=== PATIENT | female | born 1940 | race Hispanic/Latino ===

== ENCOUNTER → 2017-10-26 | Outpatient (CLI) | payer MEDICARE ==
[~2017-10-26] MED LIST: APIX2.5T PO; ASPI-1005 PO; ATOR40TA71 PO; CHOL100040 PO; CHOL50004 PO; DILT120C12 PO; ESOM40CA54 PO; FURO40TA7 PO; LISI-617 PO; LORA10TA7 PO; MECL12.585 PO; MOME13HF2 IH; PRED5TAB PO; QUET25TA74 PO; SENN-141 PO; SERT50TA12 PO; UBID100C10 PO
== END | disposition home or self-care (01) ==
LOC: SHCH 09:33
PROVIDERS: ATTEND Internal Medicine Cardiovascular Disease
DX: I13.0 Hypertensive heart and chronic kidney disease with heart failure and stage 1 through stage 4 chronic kidney disease, or unspecified chronic kidney disease (principal); I50.32 Chronic diastolic (congestive) heart failure; N18.3 Chronic kidney disease, stage 3 (moderate); I48.0 Paroxysmal atrial fibrillation; I48.92 Unspecified atrial flutter; I27.20 Pulmonary hypertension, unspecified; I07.1 Rheumatic tricuspid insufficiency; I70.0 Atherosclerosis of aorta; F41.9 Anxiety disorder, unspecified
CPT/HCPCS: 93306

== ENCOUNTER 2017-11-07 08:38 | Day surgery (SDC) | payer MEDICARE ==
[~2017-11-07] VITALS: Ht 154.9 cm; Wt 53.5 kg
[~2017-11-07 08:38] MED LIST changes: -CHOL50004 PO; -DILT120C12 PO; -MOME13HF2 IH
[2017-11-07] MEDS ORDERED: SODIUM CHLORIDE 0.9% 1000ML 1,000 ML IV ONE (08:54)
[2017-11-07 10:03] VITALS: BP 158/71
[2017-11-07] MEDS ORDERED: CHOL50004 PO (10:15)
[2017-11-07] MEDS ORDERED: MOME13HF2 IH (10:15)
[2017-11-07] MEDS ORDERED: DILT120C12 PO (10:15)
[2017-11-07 11:17] VITALS: BP 113/39
[2017-11-07] MEDS ORDERED: PROPOFOL 10 MG/ML 20ML VIAL IV ONE (11:17)
[2017-11-07 11:38] VITALS: BP 152/56
== END 2017-11-07 11:56 | disposition home or self-care (01) ==
LOC: DAH 08:38 → ENDO 08:38
PROVIDERS: ATTEND Internal Medicine Gastroenterology
DX: K29.50 Unspecified chronic gastritis without bleeding (principal); D64.9 Anemia, unspecified; I10 Essential (primary) hypertension; M81.0 Age-related osteoporosis without current pathological fracture; M19.90 Unspecified osteoarthritis, unspecified site; Z98.51 Tubal ligation status; Z98.890 Other specified postprocedural states; Z90.49 Acquired absence of other specified parts of digestive tract; Z95.1 Presence of aortocoronary bypass graft; Z79.899 Other long term (current) drug therapy; Z86.73 Personal history of transient ischemic attack (TIA), and cerebral infarction without residual deficits; I25.10 Atherosclerotic heart disease of native coronary artery without angina pectoris; K21.9 Gastro-esophageal reflux disease without esophagitis
CPT/HCPCS: 43239; 88305; 88312; 93005; A4606; J2704; J7030

== ENCOUNTER 2018-03-10 21:18 | Inpatient (IN) | payer MEDICARE ==
[~2018-03-10] VITALS: Ht 152.4 cm; Wt 53.5 kg
[~2018-03-10 21:18] MED LIST changes: -ASPI-1005 PO; +CHOL50004 PO; +DILT120C12 PO; -LORA10TA7 PO; -MECL12.585 PO; +MOME13HF2 IH; -PRED5TAB PO; -SENN-141 PO
[2018-03-10] MEDS ORDERED: SODIUM CHLORIDE 0.9% 1000ML 1,000 ML IV ONE (21:50)
[2018-03-10] MEDS ORDERED: ONDANSETRON HCL 4 MG/2 ML VIAL ONE (21:50)
[2018-03-10 21:52] LABS: BASOPHILS % (AUTO) 0.2 % (0.0-5.0); EOSINOPHILS % (AUTO) 2.5 % (0.0-8.0); HEMATOCRIT 35.2 % (36-48); LYMPHOCYTES % (AUTO) 23.7 % (21.0-51.0); MEAN CORPUSCULAR HEMOGLOBIN 28.7 pg (27.0-33.0); MEAN CORPUSCULAR HGB CONC 34.4 g/dL (32.0-36.0); MEAN CORPUSCULAR VOLUME 83.3 fL (79-99); MONOCYTES % (AUTO) 11.4 % (3.0-13.0); NEUTROPHILS % (AUTO) 62.2 % (40.0-77.0); PLATELET COUNT (AUTO) 190 K/uL (130-400); RED BLOOD CELL COUNT(AUTO) 4.23 MIL/uL (4.00-5.50); RED CELL DISTRIBUTION WIDTH 19.2 % (11.0-15.5); WHITE BLOOD COUNT (AUTO) 7.4 K/uL (4.8-10.8)
[2018-03-10 22:01] LABS: CREATININE 1.3 mg/dL (0.5-1.5); POTASSIUM 3.8 mmol/L (3.5-5.1)
[2018-03-10 22:06] LABS: ALBUMIN 3.6 g/dL (3.5-5.0); BILIRUBIN,TOTAL 0.7 mg/dL (0.2-1.0); TOTAL PROTEIN, SERUM 7.9 g/dL (6.0-8.3)
[2018-03-10 23:54] LABS: APPEARANCE,URINE Clear (CLEAR); BILIRUBIN,URINE Negative (NEGATIVE); COLOR,URINE Yellow (YELLOW); GLUCOSE, URINE (UA) Negative (NEGATIVE); KETONES,URINE Negative (NEGATIVE); LEUKOCYTE ESTERASE ,URINE Negative (NEGATIVE); NITRATE,URINE Negative (NEGATIVE); OCCULT BLOOD,URINE Trace (NEGATIVE); PH,URINE 5.5 (5.0-8.0); PROTEIN,URINE Negative (NEGATIVE); UROBILINOGEN,URINE 0.2 mg/dL (0.2-1.0)
[2018-03-11 00:02] LABS: BACTERIA,URINE Few /HPF (None Seen); RBC,URINE 0-1 /HPF (0-1); WBC,URINE 0-1 /HPF (0-1)
[2018-03-11 00:05] LABS: AMPHET/METH SCREEN,URINE NEGATIVE (NEGATIVE); BARBITURATE SCREEN, URINE NEGATIVE (NEGATIVE); BENZODIAZEPINES SCREEN,URINE NEGATIVE (NEGATIVE); CANNABINOID SCREEN,URINE NEGATIVE (NEGATIVE); COCAINE SCREEN,URINE NEGATIVE (NEGATIVE); OPIATE SCREEN,URINE NEGATIVE (NEGATIVE); PHENCYCLIDINE SCREEN,URINE NEGATIVE (NEGATIVE)
[2018-03-11] MEDS ORDERED: POTASSIUM CHLORIDE 10% ELIXIR 20 MEQ/15 ML UDCUP PO PRN (03:00)
[2018-03-11] MEDS ORDERED: ONDANSETRON HCL 4 MG/2 ML VIAL IVP PRN (03:00)
[2018-03-11] MEDS: SODIUM CHLORIDE 0.9% 1000ML 1,000 ML IV SCH ×5 (03:00→20:12)
[2018-03-11] MEDS ORDERED: LIDOCAINE HCL-MPF 1% 2ML VIAL IJ PRN (03:00)
[2018-03-11] MEDS ORDERED: POTASSIUM CHLORIDE 20 MEQ ERTAB PO PRN (03:00)
[2018-03-11] MEDS ORDERED: ACETAMINOPHEN 325 MG TAB PO PRN ×2 (03:00)
[2018-03-11] MEDS ORDERED: CLONIDINE HCL 0.1 MG TABLET PO PRN (03:00)
[2018-03-11] MEDS ORDERED: POTASSIUM CHLORIDE 20MEQ/100ML 100 ML IV PRN (03:00)
[2018-03-11 07:59] VITALS: BP 148/68
[2018-03-11] MEDS ORDERED: PNEUMOCOCCAL VACCINE POLYVALENT 0.5 ML/VIAL [PPV] IM SCH ×2 (08:30→08:45)
[2018-03-11] MEDS ORDERED: RANI150T7 PO (08:51)
[2018-03-11] MEDS ORDERED: FERR325T22 PO (08:51)
[2018-03-11] MEDS ORDERED: LINA145C PO (08:51)
[2018-03-11] MEDS ORDERED: LEVO500T2 PO (08:52)
[2018-03-11 09:02] LABS: BASOPHILS % (AUTO) 0.4 % (0.0-5.0); LYMPHOCYTES % (AUTO) 26.4 % (21.0-51.0); MEAN CORPUSCULAR HEMOGLOBIN 27.7 pg (27.0-33.0); MEAN CORPUSCULAR HGB CONC 33.2 g/dL (32.0-36.0); MEAN CORPUSCULAR VOLUME 83.6 fL (79-99); MONOCYTES % (AUTO) 11.6 % (3.0-13.0); NEUTROPHILS % (AUTO) 57.6 % (40.0-77.0); PLATELET COUNT (AUTO) 165 K/uL (130-400); RED BLOOD CELL COUNT(AUTO) 4.55 MIL/uL (4.00-5.50); WHITE BLOOD COUNT (AUTO) 6.9 K/uL (4.8-10.8)
[2018-03-11] MEDS ORDERED: DOCUSATE SODIUM 100 MG CAP PO PRN (09:15)
[2018-03-11] MEDS ORDERED: LACTULOSE 20 GM/30 ML UDCUP PO PRN (09:15)
[2018-03-11 09:56] LABS: ALBUMIN 3.5 g/dL (3.5-5.0); BILIRUBIN,TOTAL 0.8 mg/dL (0.2-1.0); CREATININE 1.2 mg/dL (0.5-1.5); POTASSIUM 4.1 mmol/L (3.5-5.1)
[2018-03-11] MEDS: UBIDECARENONE 200 MG PO SCH (10:45)
[2018-03-11] MEDS: ***HM***(Cholecalciferol (Vitamin D3) 5,000 UNIT) PO SCH (10:45)
[2018-03-11] MEDS: ***HM***(Linaclotide (Linzess) 145 MCG) PO SCH (10:45)
[2018-03-11] MEDS ORDERED: QUETIAPINE FUMARATE 25 MG TAB PO SCH (10:45)
[2018-03-11] MEDS ORDERED: ALBUTEROL SULFATE 0.083% 2.5 MG/3 ML INH IH SCH (12:00)
[2018-03-11 12:27] VITALS: BP 127/57
[2018-03-11] MEDS: RANITIDINE HCL 15 MG/1 ML PO SCH (16:32)
[2018-03-11] MEDS: LISINOPRIL 5 MG TABLET PO SCH (16:32)
[2018-03-11] MEDS: SERTRALINE HCL 50 MG TABLET PO SCH (16:41)
[2018-03-11 16:43] VITALS: BP 127/55
[2018-03-11 20:05] VITALS: BP 156/69
[2018-03-11] MEDS ORDERED: FLUTICASONE PROPIONATE HFA 220 MCG/PUFF 12 GM INHR IH SCH (21:00)
[2018-03-11] MEDS: ATORVASTATIN CALCIUM 40 MG TABLET PO SCH (21:01)
[2018-03-11] MEDS: APIXABAN 2.5 MG TABLET PO SCH (21:02)
[2018-03-11] MEDS: QUETIAPINE FUMARATE 25 MG TAB PO SCH (21:02)
[2018-03-11 23:58] VITALS: BP 127/57
[2018-03-12] MEDS: SODIUM CHLORIDE 0.9% 1000ML 1,000 ML IV SCH ×3 (04:16→19:59)
[2018-03-12 04:51] VITALS: BP 121/51
[2018-03-12 04:56] LABS: HEMATOCRIT 31.3 % (36-48); MEAN CORPUSCULAR HEMOGLOBIN 28.7 pg (27.0-33.0); MEAN CORPUSCULAR HGB CONC 34.2 g/dL (32.0-36.0); MEAN CORPUSCULAR VOLUME 83.9 fL (79-99); PLATELET COUNT (AUTO) 154 K/uL (130-400); RED BLOOD CELL COUNT(AUTO) 3.73 MIL/uL (4.00-5.50); RED CELL DISTRIBUTION WIDTH 19.2 % (11.0-15.5); WHITE BLOOD COUNT (AUTO) 7.3 K/uL (4.8-10.8)
[2018-03-12] MEDS: RANITIDINE HCL 15 MG/1 ML PO SCH ×2 (06:31→16:47)
[2018-03-12 08:05] VITALS: BP 121/58
[2018-03-12] MEDS: LISINOPRIL 5 MG TABLET PO SCH (08:51)
[2018-03-12] MEDS: APIXABAN 2.5 MG TABLET PO SCH ×2 (08:51→19:59)
[2018-03-12] MEDS: SERTRALINE HCL 50 MG TABLET PO SCH (08:51)
[2018-03-12] MEDS: MOMETASONE PO SCH (08:53)
[2018-03-12] MEDS: UBIDECARENONE 200 MG PO SCH (08:53)
[2018-03-12] MEDS: ***HM***(Linaclotide (Linzess) 145 MCG) PO SCH (08:53)
[2018-03-12] MEDS: DILTIAZEM HCL 120 MG CAP.SR.24H PO SCH (08:53)
[2018-03-12] MEDS: ***HM***(Cholecalciferol (Vitamin D3) 5,000 UNIT) PO SCH (08:53)
[2018-03-12] MEDS: FORMOTEROL PO SCH (08:53)
[2018-03-12] MEDS ORDERED: NON-FORMULARY MEDICATION 1 EACH (Diltiazem HCl (Diltiazem ER) 120 MG) PO SCH (09:00)
[2018-03-12] MEDS ORDERED: LISINOPRIL 5 MG TABLET PO SCH (09:00)
[2018-03-12] MEDS ORDERED: QUETIAPINE FUMARATE 25 MG TAB PO SCH (09:00)
[2018-03-12] MEDS ORDERED: NON-FORMULARY MEDICATION 1 EACH (Linaclotide (Linzess) 145 MCG) PO SCH (09:00)
[2018-03-12] MEDS ORDERED: SERTRALINE HCL 50 MG TABLET PO SCH (09:00)
[2018-03-12] MEDS ORDERED: CHOLECALCIFEROL 5000 UNIT PO SCH (09:00)
[2018-03-12] MEDS ORDERED: UBIDECARENONE 200 MG PO SCH (09:00)
[2018-03-12 11:22] VITALS: BP 139/72
[2018-03-12 17:01] VITALS: BP 137/64
[2018-03-12] MEDS: QUETIAPINE FUMARATE 25 MG TAB PO SCH (19:59)
[2018-03-12] MEDS: ATORVASTATIN CALCIUM 40 MG TABLET PO SCH (19:59)
[2018-03-12 20:16] VITALS: BP 158/65
[2018-03-12 23:41] VITALS: BP 125/57
[2018-03-13] MEDS: SODIUM CHLORIDE 0.9% 1000ML 1,000 ML IV SCH (01:57)
[2018-03-13 03:56] VITALS: BP 138/51
[2018-03-13 04:59] LABS: CREATININE 0.9 mg/dL (0.5-1.5)
[2018-03-13] MEDS: RANITIDINE HCL 15 MG/1 ML PO SCH (05:56)
[2018-03-13 08:32] VITALS: BP 155/54
[2018-03-13] MEDS: MOMETASONE PO SCH (09:00)
[2018-03-13] MEDS: FORMOTEROL PO SCH (09:00)
[2018-03-13] MEDS: ***HM***(Linaclotide (Linzess) 145 MCG) PO SCH (09:00)
[2018-03-13] MEDS: ***HM***(Cholecalciferol (Vitamin D3) 5,000 UNIT) PO SCH (09:00)
[2018-03-13] MEDS: UBIDECARENONE 200 MG PO SCH (09:00)
[2018-03-13] MEDS: LISINOPRIL 5 MG TABLET PO SCH (09:53)
[2018-03-13] MEDS: SERTRALINE HCL 50 MG TABLET PO SCH (09:53)
[2018-03-13] MEDS: DILTIAZEM HCL 120 MG CAP.SR.24H PO SCH (09:54)
[2018-03-13] MEDS: APIXABAN 2.5 MG TABLET PO SCH (09:54)
[2018-03-13 11:23] VITALS: BP 147/59
== END 2018-03-13 13:21 | disposition home or self-care (01) | DRG 389 ==
LOC: EDH 21:18 → EDHIP 03-11 00:20 → OBSVTOIN 03-11 00:20 → 4AH 03-11 07:36
PROVIDERS: ADMIT Family Medicine; ATTEND Family Medicine
PROC: 3E0234Z Introduction of Serum, Toxoid and Vaccine into Muscle, Percutaneous Approach (ICD-10-PCS; principal; 2018-03-11)
DX: K56.41 Fecal impaction (principal); E87.1 Hypo-osmolality and hyponatremia; I25.10 Atherosclerotic heart disease of native coronary artery without angina pectoris; I10 Essential (primary) hypertension; E78.5 Hyperlipidemia, unspecified; Z95.1 Presence of aortocoronary bypass graft; Z23 Encounter for immunization
CPT/HCPCS: 36415; 74176; 80048; 80053; 80305; 81001; 82150; 83690; 85025; 85027; 90732; 97039; J2405; J7030; Q2038

== ENCOUNTER → 2018-10-22 | Outpatient (CLI) | payer MEDICARE ==
[~2018-10-22] MED LIST changes: -APIX2.5T PO; +APIX5TAB PO; +ATOR40TA69 PO; -ATOR40TA71 PO; -CHOL100040 PO; -DILT120C12 PO; +DRON400T2 PO; -ESOM40CA54 PO; +FURO40TA5 PO; -FURO40TA7 PO; -MOME13HF2 IH; -QUET25TA74 PO; +RANI150T7 PO; -UBID100C10 PO; +ZOLP10TA6 PO
== END | disposition home or self-care (01) ==
LOC: SHCH 11:42
PROVIDERS: ATTEND Internal Medicine Cardiovascular Disease
DX: I11.0 Hypertensive heart disease with heart failure (principal); I50.32 Chronic diastolic (congestive) heart failure; I25.10 Atherosclerotic heart disease of native coronary artery without angina pectoris; E78.5 Hyperlipidemia, unspecified
CPT/HCPCS: 93306

== ENCOUNTER → 2019-05-23 | Outpatient (CLI) | payer MEDICARE ==
[~2019-05-23] MED LIST changes: +CARV12.511 PO; -CHOL50004 PO; +DILT-36 PO; -DRON400T2 PO; +LORA10TA7 PO; +PANT40TA25 PO; -RANI150T7 PO; -ZOLP10TA6 PO; +ZOLP5TAB8 PO
== END | disposition home or self-care (01) ==
LOC: OIH 13:15
PROVIDERS: ATTEND Family Medicine
DX: S63.122A Subluxation of interphalangeal joint of left thumb, initial encounter (principal); M19.042 Primary osteoarthritis, left hand; X58.XXXA Exposure to other specified factors, initial encounter; Y93.89 Activity, other specified; Y92.89 Other specified places as the place of occurrence of the external cause; Y99.8 Other external cause status
CPT/HCPCS: 73140

== ENCOUNTER → 2020-10-01 | Outpatient (CLI) | payer MEDICARE ==
[~2020-10-01] MED LIST changes: -LISI-617 PO; +LISI-809 PO; -PANT40TA25 PO; +PANT40TA54 PO; +SERT-439 PO; -SERT50TA12 PO
== END | disposition home or self-care (01) ==
LOC: SHCH 13:05
PROVIDERS: ATTEND Internal Medicine Cardiovascular Disease
DX: I50.32 Chronic diastolic (congestive) heart failure (principal)
CPT/HCPCS: 93306; 93356

== ENCOUNTER 2021-08-07 16:08 | Emergency (ER) | payer MEDICARE ==
[~2021-08-07] VITALS: Ht 152.4 cm; Wt 54.4 kg
[~2021-08-07 16:08] MED LIST changes: -LISI-809 PO; +LISI5TAB21 PO
[2021-08-07 16:09] VITALS: BP 147/75
[2021-08-07 16:29] LABS: BASOPHILS % (AUTO) 0.3 % (0.0-5.0); HEMATOCRIT 38.1 % (36-48); LYMPHOCYTES % (AUTO) 24.5 % (21.0-51.0); MEAN CORPUSCULAR HEMOGLOBIN 26.9 pg (27.0-33.0); MEAN CORPUSCULAR VOLUME 83.9 fL (79-99); MONOCYTES % (AUTO) 11.6 % (3.0-13.0); NEUTROPHILS % (AUTO) 60.1 % (40.0-77.0); PLATELET COUNT (AUTO) 168 K/uL (130-400); RED BLOOD CELL COUNT(AUTO) 4.54 MIL/uL (4.00-5.50); RED CELL DISTRIBUTION WIDTH 15.9 % (11.0-15.5)
[2021-08-07 16:42] LABS: INR 1.18 (0.85-1.15); PROTHROMBIN TIME 12.7 SEC (9.6-11.6)
[2021-08-07 16:43] LABS: PARTIAL THROMBOPLASTIN TIME 33.5 SEC (26.3-35.5)
[2021-08-07 16:45] LABS: ALBUMIN 3.8 g/dL (3.5-5.0); BILIRUBIN,TOTAL 1.3 mg/dL (0.2-1.0); POTASSIUM 4.4 mmol/L (3.5-5.1); TOTAL PROTEIN, SERUM 8.5 g/dL (6.0-8.3)
[2021-08-07] MEDS ORDERED: 0.9%NACL 1000ML 1,000 ML IV ONE (16:51)
[2021-08-07] MEDS ORDERED: 0.9%NACL 1000ML 1,000 ML IV SCH (17:00)
== END 2021-08-07 17:49 | disposition home or self-care (01) ==
LOC: EDH 16:08
DX: R04.0 Epistaxis (principal); E87.1 Hypo-osmolality and hyponatremia; E86.1 Hypovolemia; E78.00 Pure hypercholesterolemia, unspecified; I10 Essential (primary) hypertension; I25.10 Atherosclerotic heart disease of native coronary artery without angina pectoris; Z79.01 Long term (current) use of anticoagulants; Z79.899 Other long term (current) drug therapy; Z88.6 Allergy status to analgesic agent; Z90.49 Acquired absence of other specified parts of digestive tract; Z95.1 Presence of aortocoronary bypass graft
CPT/HCPCS: 36415; 80053; 85025; 85610; 85730; 96360; 99283; J7030

== ENCOUNTER → 2021-12-15 | Outpatient (CLI) | payer MEDICARE ==
[2021-12-15 13:07] LABS: CREATININE 0.9 mg/dL (0.5-1.5)
== END | disposition home or self-care (01) ==
LOC: LAB 11:54
PROVIDERS: ATTEND Family Medicine
DX: M25.512 Pain in left shoulder (principal)
CPT/HCPCS: 36415; 82565; 84520

== ENCOUNTER → 2021-12-16 | Outpatient (CLI) | payer MEDICARE ==
[~2021-12-16] MED LIST changes: +IOHEXOL 350 MG/ML 100ML INFUS..BTL IV ONE
== END | disposition home or self-care (01) ==
LOC: RAH 11:00
PROVIDERS: ATTEND Family Medicine
DX: M25.512 Pain in left shoulder (principal)
CPT/HCPCS: 73202; Q9967

== ENCOUNTER 2022-01-24 18:12 | Observation (INO) | payer MEDICARE ==
[~2022-01-24] VITALS: Ht 154.9 cm; Wt 54.4 kg
[~2022-01-24 18:12] MED LIST changes: -IOHEXOL 350 MG/ML 100ML INFUS..BTL IV ONE
[2022-01-24 19:14] LABS: BASOPHILS % (AUTO) 0.2 % (0.0-5.0); EOSINOPHILS % (AUTO) 0.8 % (0.0-8.0); HEMATOCRIT 37.6 % (36-48); MEAN CORPUSCULAR HGB CONC 33.8 g/dL (32.0-36.0); MEAN CORPUSCULAR VOLUME 82.8 fL (79-99); MONOCYTES % (AUTO) 9.7 % (3.0-13.0); NEUTROPHILS % (AUTO) 73.8 % (40.0-77.0); PLATELET COUNT (AUTO) 150 K/uL (130-400); RED BLOOD CELL COUNT(AUTO) 4.54 MIL/uL (4.00-5.50); RED CELL DISTRIBUTION WIDTH 15.2 % (11.0-15.5); WHITE BLOOD COUNT (AUTO) 6.6 K/uL (4.8-10.8)
[2022-01-24 19:27] LABS: ALBUMIN 3.6 g/dL (3.5-5.0); POTASSIUM 3.9 mmol/L (3.5-5.1); TOTAL PROTEIN, SERUM 7.9 g/dL (6.0-8.3)
[2022-01-24 20:17] LABS: APPEARANCE,URINE CLEAR (CLEAR); BILIRUBIN,URINE NEGATIVE (NEGATIVE); COLOR,URINE COLORLESS (YELLOW); GLUCOSE, URINE (UA) NEGATIVE (NEGATIVE); KETONES,URINE NEGATIVE (NEGATIVE); LEUKOCYTE ESTERASE ,URINE NEGATIVE Leu/uL (NEGATIVE); NITRATE,URINE NEGATIVE (NEGATIVE); OCCULT BLOOD,URINE SMALL (NEGATIVE); PROTEIN,URINE NEGATIVE (NEGATIVE); UROBILINOGEN,URINE 0.2 mg/dL (0.2-1.0)
[2022-01-24 20:23] LABS: MUCUS,URINE RARE LPF (None Seen); WBC,URINE 0-1 /HPF (0-1)
[2022-01-24] MEDS ORDERED: SOLU-MEDROL 40MG VIAL IVP ONE (20:30)
[2022-01-24] MEDS ORDERED: MECLIZINE HCL 25 MG TABLET PO ONE (20:30)
[2022-01-24] MEDS ORDERED: ONDANSETRON 4MG INJ IVP ONE (20:30)
[2022-01-24] MEDS ORDERED: 0.9% NACL 500ML IV.SOLN 500 ML IV ONE (20:30)
[2022-01-24] MEDS ORDERED: LACTULOSE 20 GM/30 ML UDCUP PO PRN (22:30)
[2022-01-24] MEDS ORDERED: 0.9%NACL 1000ML 1,000 ML IV SCH (22:30)
[2022-01-24] MEDS ORDERED: ACETAMINOPHEN 325 MG TAB PO PRN ×2 (22:30)
[2022-01-24] MEDS ORDERED: ONDANSETRON 4MG INJ IV PRN (22:30)
[2022-01-24] MEDS ORDERED: SUCR1TAB2 PO (23:32)
[2022-01-24] MEDS ORDERED: DILT-36 PO (23:32)
[2022-01-24] MEDS ORDERED: ZOLP5TAB8 PO (23:32)
[2022-01-24] MEDS ORDERED: MECL-160 PO (23:32)
[2022-01-24] MEDS ORDERED: ATOR40TA69 PO (23:32)
[2022-01-24] MEDS ORDERED: LISI5TAB21 PO (23:32)
[2022-01-24] MEDS ORDERED: PANT40TA54 PO (23:32)
[2022-01-24] MEDS ORDERED: SERT-439 PO (23:32)
[2022-01-24] MEDS ORDERED: APIX2.5T PO (23:32)
[2022-01-25] MEDS ORDERED: MECLIZINE HCL 25 MG TABLET PO PRN
[2022-01-25 05:10] VITALS: BP 161/95
[2022-01-25 05:53] LABS: CREATININE 0.8 mg/dL (0.5-1.5); POTASSIUM 4.5 mmol/L (3.5-5.1)
[2022-01-25 07:00] VITALS: BP 135/81
[2022-01-25 07:38] LABS: HEMATOCRIT 41.1 % (36-48); MEAN CORPUSCULAR HEMOGLOBIN 27.8 pg (27.0-33.0); MEAN CORPUSCULAR HGB CONC 33.1 g/dL (32.0-36.0); MEAN CORPUSCULAR VOLUME 83.9 fL (79-99); RED BLOOD CELL COUNT(AUTO) 4.9 MIL/uL (4.00-5.50); RED CELL DISTRIBUTION WIDTH 15.2 % (11.0-15.5); WHITE BLOOD COUNT (AUTO) 5.1 K/uL (4.8-10.8)
[2022-01-25] MEDS ORDERED: APIXABAN 2.5 MG TABLET PO SCH (09:00)
[2022-01-25] MEDS ORDERED: DILTIAZEM 120MG SR CAP PO SCH (09:00)
[2022-01-25] MEDS ORDERED: LISINOPRIL 5 MG TABLET PO SCH (09:00)
[2022-01-25] MEDS ORDERED: PANTOPRAZOLE 40 MG TAB DR PO SCH (09:00)
[2022-01-25] MEDS ORDERED: FAMOTIDINE 20MG TAB PO SCH (09:00)
[2022-01-25] MEDS ORDERED: ONDA-104 PO (10:16)
[2022-01-25] MEDS ORDERED: MECL-160 PO (10:16)
[2022-01-25] MEDS ORDERED: DICY10CA13 PO (10:16)
[2022-01-25] MEDS ORDERED: FURO20TA6 PO (10:16)
[2022-01-25] MEDS ORDERED: FUROSEMIDE 20 MG TABLET PO SCH (10:30)
[2022-01-25 11:00] VITALS: BP 122/60
[2022-01-25] MEDS ORDERED: ATORVASTATIN 40 MG TABLET PO SCH (21:00)
== END 2022-01-25 13:15 | disposition home or self-care (01) ==
LOC: EDH 18:12 → INTOOBSV 22:29 → OBSVTOIN 22:29 → EDHIP 22:29 → 2DH 01-25 04:17
PROVIDERS: ADMIT Hospitalist; ATTEND Hospitalist
DX: E86.1 Hypovolemia (principal); E87.1 Hypo-osmolality and hyponatremia; E87.8 Other disorders of electrolyte and fluid balance, not elsewhere classified; I11.0 Hypertensive heart disease with heart failure; I50.9 Heart failure, unspecified; E78.5 Hyperlipidemia, unspecified; I25.10 Atherosclerotic heart disease of native coronary artery without angina pectoris; E78.00 Pure hypercholesterolemia, unspecified; I25.2 Old myocardial infarction; Z79.899 Other long term (current) drug therapy; Z79.01 Long term (current) use of anticoagulants; Z95.1 Presence of aortocoronary bypass graft
CPT/HCPCS: 96374; 96361 ×2; 96375; 99285; 84484; 84295 ×3; 80053; 83880 ×2; 85025; 83935; 81001; 36415 ×2; 70450; 93005; 80048; 85027; 93306; 93356; J7040; J2405; J2920; G0378 ×3

== ENCOUNTER 2022-02-11 23:07 | Emergency (ER) | payer MEDICARE ==
[~2022-02-11] VITALS: Ht 160 cm; Wt 53.5 kg
[~2022-02-11 23:07] MED LIST changes: +APIX2.5T PO; -APIX5TAB PO; -CARV12.511 PO; +DICY10CA13 PO; +FURO20TA6 PO; -FURO40TA5 PO; -LORA10TA7 PO; +MECL-160 PO; +ONDA-104 PO; +SUCR1TAB2 PO
[2022-02-12] LABS: BASOPHILS % (AUTO) 0.2 % (0.0-5.0); HEMATOCRIT 38.2 % (36-48); LYMPHOCYTES % (AUTO) 7.4 % (21.0-51.0); MEAN CORPUSCULAR HEMOGLOBIN 28.5 pg (27.0-33.0); MEAN CORPUSCULAR HGB CONC 34.3 g/dL (32.0-36.0); MEAN CORPUSCULAR VOLUME 83.2 fL (79-99); NEUTROPHILS % (AUTO) 85.8 % (40.0-77.0); PLATELET COUNT (AUTO) 164 K/uL (130-400); RED BLOOD CELL COUNT(AUTO) 4.59 MIL/uL (4.00-5.50); RED CELL DISTRIBUTION WIDTH 15.3 % (11.0-15.5); WHITE BLOOD COUNT (AUTO) 16.8 K/uL (4.8-10.8)
[2022-02-12 00:11] LABS: CARBON DIOXIDE 27 mmol/L (21-32); CHLORIDE 93 mmol/L (101-111); CREATININE 1.2 mg/dL (0.5-1.5); GLOMERULAR FILTR. RATE CALC 46 mL/min (>60); GLUCOSE,RANDOM 108 mg/dL (70-105); POTASSIUM 4.4 mmol/L (3.5-5.1); SODIUM SERUM 125 mmol/L (136-145); UREA NITROGEN, BLOOD 13 mg/dL (7-18)
[2022-02-12 00:15] LABS: ALANINE AMINOTRANSFERASE 47 U/L (12-78); ALBUMIN 3.3 g/dL (3.5-5.0); ASPARTATE AMINOTRANSFERASE 55 U/L (10-37); TOTAL PROTEIN, SERUM 7.4 g/dL (6.0-8.3)
[2022-02-12 00:18] LABS: LIPASE < 50 U/L (114-286)
[2022-02-12] MEDS ORDERED: IOHEXOL 350 MG/ML 100ML INFUS..BTL IV ONE (00:33)
[2022-02-12 01:45] VITALS: BP 117/61
[2022-02-12] MEDS ORDERED: 0.9%NACL 1000ML 2,000 ML IV ONE (02:00)
[2022-02-12] MEDS ORDERED: DICY10 PO (02:33)
[2022-02-12] MEDS ORDERED: MORPHINE 2 MG SYG IM ONE (03:00)
== END 2022-02-12 03:14 | disposition home or self-care (01) ==
LOC: EDH 23:07
DX: E87.1 Hypo-osmolality and hyponatremia (principal); K59.00 Constipation, unspecified; E78.00 Pure hypercholesterolemia, unspecified; E86.1 Hypovolemia; I10 Essential (primary) hypertension; I25.10 Atherosclerotic heart disease of native coronary artery without angina pectoris; Z88.6 Allergy status to analgesic agent; Z79.899 Other long term (current) drug therapy; Z90.49 Acquired absence of other specified parts of digestive tract; Z79.01 Long term (current) use of anticoagulants; Z95.1 Presence of aortocoronary bypass graft
CPT/HCPCS: 99285; 84484; 80053; 83690; 85025; 36415; 71045; 74177; 96372; 96360; J7030; Q9967; 93005

== ENCOUNTER 2022-06-27 17:33 | Emergency (ER) | payer MEDICARE ==
[~2022-06-27] VITALS: Ht 152.4 cm; Wt 51.7 kg
[~2022-06-27 17:33] MED LIST changes: +DICY10 PO
[2022-06-27] MEDS ORDERED: IOHEXOL-350 50ML VIAL IV ONE (18:54)
[2022-06-27 19:50] LABS: BASOPHILS % (AUTO) 0.2 % (0.0-5.0); EOSINOPHILS % (AUTO) 1.7 % (0.0-8.0); HEMATOCRIT 43.5 % (36-48); LYMPHOCYTES % (AUTO) 17.7 % (21.0-51.0); MEAN CORPUSCULAR HEMOGLOBIN 29.5 pg (27.0-33.0); MEAN CORPUSCULAR HGB CONC 32.2 g/dL (32.0-36.0); MEAN CORPUSCULAR VOLUME 91.8 fL (79-99); NEUTROPHILS % (AUTO) 72.2 % (40.0-77.0); PLATELET COUNT (AUTO) 138 K/uL (130-400); RED BLOOD CELL COUNT(AUTO) 4.74 MIL/uL (4.00-5.50); RED CELL DISTRIBUTION WIDTH 14.5 % (11.0-15.5); WHITE BLOOD COUNT (AUTO) 8.6 K/uL (4.8-10.8)
[2022-06-27 19:58] LABS: CREATININE 0.8 mg/dL (0.5-1.5); POTASSIUM 4.1 mmol/L (3.5-5.1)
[2022-06-27] MEDS ORDERED: DIPH,PERTUSS(ACELL),TET VAC/PF 0.5 ML VIAL IM ONE (20:00)
[2022-06-27 20:03] LABS: ALBUMIN 3.8 g/dL (3.5-5.0); TOTAL PROTEIN, SERUM 8.9 g/dL (6.0-8.3)
[2022-06-27] MEDS ORDERED: TETANUS/DIPHTHERIA TOXOID [ADULT] 0.5 ML VIAL IM ONE (20:31)
[2022-06-27] MEDS ORDERED: ACETAMINOPHEN 500 MG TABLET ONE (20:32)
[2022-06-27] MEDS ORDERED: ACETAMINOPHEN 325 MG TAB PO ONE (21:00)
[2022-06-27 23:36] VITALS: BP 158/71
== END 2022-06-27 23:55 | disposition home or self-care (01) ==
LOC: EDH 17:33
DX: S20.219A Contusion of unspecified front wall of thorax, initial encounter (principal); S80.12XA Contusion of left lower leg, initial encounter; I10 Essential (primary) hypertension; E78.00 Pure hypercholesterolemia, unspecified; Z90.49 Acquired absence of other specified parts of digestive tract; Z98.890 Other specified postprocedural states; Z79.899 Other long term (current) drug therapy; Z88.6 Allergy status to analgesic agent; W01.0XXA Fall on same level from slipping, tripping and stumbling without subsequent striking against object, initial encounter; Y93.89 Activity, other specified; Y92.89 Other specified places as the place of occurrence of the external cause; Y99.8 Other external cause status
CPT/HCPCS: 99285; 70450 ×2; 80053; 85025; 36415; 90715; 73070; 72125; 71260; 74177; 90471; 93005; 90714; Q9967

== ENCOUNTER 2022-07-20 17:40 | Emergency (ER) | payer MEDICARE ==
[~2022-07-20] VITALS: Ht 154.9 cm; Wt 54.4 kg
[2022-07-20 18:27] LABS: BASOPHILS % (AUTO) 0.1 % (0.0-5.0); EOSINOPHILS % (AUTO) 0.1 % (0.0-8.0); HEMATOCRIT 39.7 % (36-48); LYMPHOCYTES % (AUTO) 3.7 % (21.0-51.0); MEAN CORPUSCULAR HEMOGLOBIN 29.6 pg (27.0-33.0); MEAN CORPUSCULAR VOLUME 89.8 fL (79-99); NEUTROPHILS % (AUTO) 90.7 % (40.0-77.0); PLATELET COUNT (AUTO) 171 K/uL (130-400); RED BLOOD CELL COUNT(AUTO) 4.42 MIL/uL (4.00-5.50); RED CELL DISTRIBUTION WIDTH 14.4 % (11.0-15.5); WHITE BLOOD COUNT (AUTO) 15.1 K/uL (4.8-10.8)
[2022-07-20 18:39] LABS: CREATININE 0.8 mg/dL (0.5-1.5); POTASSIUM 4.1 mmol/L (3.5-5.1)
[2022-07-20 18:46] LABS: ALBUMIN 3.4 g/dL (3.5-5.0); TOTAL PROTEIN, SERUM 7.3 g/dL (6.0-8.3)
[2022-07-20] MEDS ORDERED: IOHEXOL 350 MG/ML 100ML INFUS..BTL IV ONE (18:48)
[2022-07-20 19:14] LABS: APPEARANCE,URINE CLEAR (CLEAR); BILIRUBIN,URINE NEGATIVE (NEGATIVE); COLOR,URINE YELLOW (YELLOW); GLUCOSE, URINE (UA) NEGATIVE (NEGATIVE); KETONES,URINE NEGATIVE (NEGATIVE); LEUKOCYTE ESTERASE ,URINE NEGATIVE Leu/uL (NEGATIVE); NITRATE,URINE NEGATIVE (NEGATIVE); OCCULT BLOOD,URINE SMALL (NEGATIVE); PH,URINE 6.5 (5.0-8.0); PROTEIN,URINE NEGATIVE (NEGATIVE)
[2022-07-20 19:15] LABS: MUCUS,URINE RARE LPF (None Seen); SQUAMOUS EPITHELIAL CELL,UR RARE /HPF (0-2); WBC,URINE 0-1 /HPF (0-1)
[2022-07-20] MEDS ORDERED: MORPHINE 2 MG SYG IVP ONE (21:00)
[2022-07-20] MEDS ORDERED: ONDA4TAB10 PO (21:26)
[2022-07-20 21:39] VITALS: BP 148/52
== END 2022-07-20 21:40 | disposition home or self-care (01) ==
LOC: EDH 17:40
DX: K52.9 Noninfective gastroenteritis and colitis, unspecified (principal); I10 Essential (primary) hypertension; Z79.01 Long term (current) use of anticoagulants; Z79.899 Other long term (current) drug therapy; Z88.6 Allergy status to analgesic agent; Z90.49 Acquired absence of other specified parts of digestive tract; Z95.810 Presence of automatic (implantable) cardiac defibrillator
CPT/HCPCS: 99285; 74177; 96374; 80053; 85025; 83605; 81001; 36415; Q9967

== ENCOUNTER 2022-10-20 17:48 | Emergency (ER) | payer MEDICARE ==
[~2022-10-20] VITALS: Ht 152.4 cm; Wt 49.9 kg
[~2022-10-20 17:48] MED LIST changes: +ONDA4TAB10 PO
[2022-10-20 18:33] LABS: BASOPHILS % (AUTO) 0.3 % (0.0-5.0); EOSINOPHILS % (AUTO) 0.3 % (0.0-8.0); HEMATOCRIT 37.2 % (36-48); LYMPHOCYTES % (AUTO) 12.6 % (21.0-51.0); MEAN CORPUSCULAR HGB CONC 32.8 g/dL (32.0-36.0); MEAN CORPUSCULAR VOLUME 88.4 fL (79-99); NEUTROPHILS % (AUTO) 80.4 % (40.0-77.0); PLATELET COUNT (AUTO) 153 K/uL (130-400); RED BLOOD CELL COUNT(AUTO) 4.21 MIL/uL (4.00-5.50); RED CELL DISTRIBUTION WIDTH 14.3 % (11.0-15.5); WHITE BLOOD COUNT (AUTO) 7.9 K/uL (4.8-10.8)
[2022-10-20 18:48] LABS: CARBON DIOXIDE 22 mmol/L (21-32); CHLORIDE 92 mmol/L (101-111); CREATININE 0.7 mg/dL (0.5-1.5); GLOMERULAR FILTR. RATE CALC 86 mL/min (>90); GLUCOSE,RANDOM 118 mg/dL (70-105); SODIUM SERUM 125 mmol/L (136-145); UREA NITROGEN, BLOOD 13 mg/dL (7-18)
[2022-10-20 18:56] LABS: ALANINE AMINOTRANSFERASE 64 U/L (12-78); ALBUMIN 3.7 g/dL (3.5-5.0); ASPARTATE AMINOTRANSFERASE 78 U/L (10-37); TOTAL PROTEIN, SERUM 8.1 g/dL (6.0-8.3)
[2022-10-20 18:57] LABS: LIPASE < 50 U/L (114-286)
[2022-10-20 19:40] LABS: APPEARANCE,URINE CLEAR (CLEAR); BILIRUBIN,URINE NEGATIVE (NEGATIVE); COLOR,URINE YELLOW (YELLOW); GLUCOSE, URINE (UA) NEGATIVE (NEGATIVE); KETONES,URINE NEGATIVE (NEGATIVE); LEUKOCYTE ESTERASE ,URINE NEGATIVE Leu/uL (NEGATIVE); NITRATE,URINE NEGATIVE (NEGATIVE); OCCULT BLOOD,URINE SMALL (NEGATIVE); PH,URINE 5.5 (5.0-8.0); PROTEIN,URINE NEGATIVE (NEGATIVE); UROBILINOGEN,URINE 0.2 mg/dL (0.2-1.0)
[2022-10-20 19:44] LABS: BACTERIA,URINE RARE /HPF (None Seen); MUCUS,URINE RARE LPF (None Seen); SQUAMOUS EPITHELIAL CELL,UR RARE /HPF (0-2); WBC,URINE 0-1 /HPF (0-1)
[2022-10-20 19:46] VITALS: BP 139/59
[2022-10-20] MEDS ORDERED: LACT10SO95 PO (20:17)
== END 2022-10-20 20:45 | disposition home or self-care (01) ==
LOC: EDH 17:48
DX: K59.00 Constipation, unspecified (principal); I10 Essential (primary) hypertension; Z90.49 Acquired absence of other specified parts of digestive tract
CPT/HCPCS: 36415; 74018; 80053; 81001; 83690; 84484; 85025; 93005

== ENCOUNTER → 2022-12-10 | Outpatient (CLI) | payer MEDICARE ==
[~2022-12-10] MED LIST changes: +DICY-20 PO; -DICY10CA13 PO; +LACT10SO95 PO
== END | disposition home or self-care (01) ==
LOC: SHCH 13:57
PROVIDERS: ATTEND Internal Medicine Cardiovascular Disease
DX: I08.8 Other rheumatic multiple valve diseases (principal); I27.20 Pulmonary hypertension, unspecified
CPT/HCPCS: 93306

== ENCOUNTER → 2022-12-13 | Outpatient (CLI) | payer MEDICARE | END | disposition home or self-care (01) | LOC: SHCH 15:16 | PROVIDERS: ATTEND Internal Medicine Cardiovascular Disease | DX: I65.23 Occlusion and stenosis of bilateral carotid arteries (principal) | CPT/HCPCS: 93880 ==

== ENCOUNTER 2022-12-30 10:54 | Emergency (ER) | payer MEDICARE ==
[~2022-12-30] VITALS: Ht 147.3 cm; Wt 49.9 kg
[2022-12-30 11:21] VITALS: BP 110/55; PULSE 82; RESP 16; O2SAT 96
[2022-12-30 12:25] LABS: APPEARANCE,URINE CLEAR (CLEAR); BILIRUBIN,URINE NEGATIVE (NEGATIVE); COLOR,URINE YELLOW (YELLOW); GLUCOSE, URINE (UA) NEGATIVE (NEGATIVE); KETONES,URINE NEGATIVE (NEGATIVE); LEUKOCYTE ESTERASE ,URINE NEGATIVE Leu/uL (NEGATIVE); NITRATE,URINE NEGATIVE (NEGATIVE); OCCULT BLOOD,URINE SMALL (NEGATIVE); PH,URINE 6.5 (5.0-8.0); PROTEIN,URINE NEGATIVE (NEGATIVE); UROBILINOGEN,URINE 0.2 mg/dL (0.2-1.0)
[2022-12-30 12:26] LABS: BASOPHILS # (AUTO) 0.02 K/uL (0.00-0.20); BASOPHILS % (AUTO) 0.2 % (0.0-5.0); EOSINOPHILS # (AUTO) 0.05 K/uL (0.00-0.70); EOSINOPHILS % (AUTO) 0.5 % (0.0-8.0); HEMATOCRIT 39.5 % (36-48); IMMATURE GRANULOCYTE ABSOLUTE 0.03 K/uL (0-1); LYMPHOCYTES # (AUTO) 3.4 K/uL (1.0-4.8); LYMPHOCYTES % (AUTO) 35.6 % (21.0-51.0); MEAN CORPUSCULAR HEMOGLOBIN 29.4 pg (27.0-33.0); MEAN CORPUSCULAR HGB CONC 33.7 g/dL (32.0-36.0); MEAN CORPUSCULAR VOLUME 87.2 fL (79-99); MONOCYTES % (AUTO) 10.5 % (3.0-13.0); NEUTROPHILS % (AUTO) 52.9 % (40.0-77.0); PLATELET COUNT (AUTO) 165 K/uL (130-400); RED BLOOD CELL COUNT(AUTO) 4.53 MIL/uL (4.00-5.50); RED CELL DISTRIBUTION WIDTH 14.9 % (11.0-15.5); WHITE BLOOD COUNT (AUTO) 9.5 K/uL (4.8-10.8)
[2022-12-30 12:42] LABS: ADD UA MICROSCOPIC YES
[2022-12-30 12:45] LABS: WBC,URINE 0-1 /HPF (0-1)
[2022-12-30 12:46] LABS: BACTERIA,URINE None Seen /HPF (None Seen)
[2022-12-30 12:50] LABS: CREATININE 0.8 mg/dL (0.5-1.5); POTASSIUM 3.6 mmol/L (3.5-5.1)
[2022-12-30 12:55] LABS: ALBUMIN 3.8 g/dL (3.5-5.0); TOTAL PROTEIN, SERUM 8.2 g/dL (6.0-8.3)
[2022-12-30] MEDS ORDERED: HYDR28.32 TP (13:17)
== END 2022-12-30 13:41 | disposition home or self-care (01) ==
LOC: EDH 10:54
DX: L29.9 Pruritus, unspecified (principal)
CPT/HCPCS: 36415; 80053; 81001; 85025

== ENCOUNTER 2023-10-08 11:03 | Emergency (ER) | payer MEDICARE ==
[~2023-10-08] VITALS: Ht 152.4 cm; Wt 49.9 kg
[~2023-10-08 11:03] MED LIST changes: -DICY-20 PO; +DICY10CA2 PO; +HYDR28.32 TP; -MECL-160 PO; +MECL-302 PO; +ONDA-243 PO; -ONDA4TAB10 PO
[2023-10-08 11:11] VITALS: BP 122/83; PULSE 90; RESP 16
[2023-10-08 11:51] LABS: BASOPHILS # (AUTO) 0.02 K/uL (0.00-0.20); BASOPHILS % (AUTO) 0.4 % (0.0-5.0); EOSINOPHILS # (AUTO) 0.13 K/uL (0.00-0.70); EOSINOPHILS % (AUTO) 2.3 % (0.0-8.0); HEMATOCRIT 39.5 % (36-48); IMMATURE GRANULOCYTE ABSOLUTE 0.02 K/uL (0-1); LYMPHOCYTES # (AUTO) 1.2 K/uL (1.0-4.8); LYMPHOCYTES % (AUTO) 21.4 % (21.0-51.0); MEAN CORPUSCULAR HEMOGLOBIN 30.4 pg (27.0-33.0); MEAN CORPUSCULAR HGB CONC 33.2 g/dL (32.0-36.0); MEAN CORPUSCULAR VOLUME 91.6 fL (79-99); MONOCYTES # (AUTO) 0.5 K/uL (0.1-1.0); MONOCYTES % (AUTO) 9.3 % (3.0-13.0); NEUTROPHILS # (AUTO) 3.7 K/uL (1.8-7.7); NEUTROPHILS % (AUTO) 66.2 % (40.0-77.0); PLATELET COUNT (AUTO) 112 K/uL (130-400); RED BLOOD CELL COUNT(AUTO) 4.31 MIL/uL (4.00-5.50); RED CELL DISTRIBUTION WIDTH 15.5 % (11.0-15.5); WHITE BLOOD COUNT (AUTO) 5.6 K/uL (4.8-10.8)
[2023-10-08 12:01] LABS: CREATININE 0.8 mg/dL (0.5-1.0); INR 1.09 (0.85-1.15); POTASSIUM 3.9 mmol/L (3.5-5.1); PROTHROMBIN TIME 12.8 SEC (9.6-11.6)
[2023-10-08 12:03] LABS: PARTIAL THROMBOPLASTIN TIME 31.1 SEC (26.3-35.5)
[2023-10-08 12:06] LABS: ALBUMIN 3.6 g/dL (3.5-5.0); BILIRUBIN,TOTAL 1.4 mg/dL (0.2-1.0); TOTAL PROTEIN, SERUM 7.9 g/dL (6.0-8.3)
[2023-10-08] MEDS: FENTANYL CITRATE PF 50 MCG/1 ML 2ML VIAL IVP ONE (12:14)
[2023-10-08] MEDS ORDERED: HYDR-4060 PO (14:01)
[2023-10-08] MEDS ORDERED: FURO40TA5 PO (15:50)
[2023-10-08] MEDS: TETANUS/DIPHTHERIA TOXOID [ADULT] 0.5 ML VIAL IM ONE (16:07)
== END 2023-10-08 16:15 | disposition admitted as inpatient to this hospital (09) ==
LOC: EDH 11:03
DX: S01.81XA Laceration without foreign body of other part of head, initial encounter (principal); E78.00 Pure hypercholesterolemia, unspecified; Z79.01 Long term (current) use of anticoagulants; Z95.0 Presence of cardiac pacemaker; W18.39XA Other fall on same level, initial encounter; Y93.89 Activity, other specified; Y92.89 Other specified places as the place of occurrence of the external cause; Y99.8 Other external cause status
CPT/HCPCS: 99285; 70450; 96374; 71045; 84484; 80053; 85025; 85610; 85730; 36415; 90714; 72125; 90471; 93005; J3010

== ENCOUNTER → 2023-11-17 | Outpatient (CLI) | payer MEDICARE ==
[~2023-11-17] MED LIST changes: +FURO40TA5 PO; +HYDR-4060 PO
== END | disposition home or self-care (01) ==
LOC: SHCH 11:11
PROVIDERS: ATTEND Internal Medicine Cardiovascular Disease
DX: I08.8 Other rheumatic multiple valve diseases (principal)
CPT/HCPCS: 93306

== ENCOUNTER → 2023-11-22 | Outpatient (CLI) | payer MEDICARE | END | disposition home or self-care (01) | LOC: SHCH 09:03 | PROVIDERS: ATTEND Internal Medicine Cardiovascular Disease | DX: I87.2 Venous insufficiency (chronic) (peripheral) (principal); I87.1 Compression of vein | CPT/HCPCS: 93970 ==

== ENCOUNTER 2024-01-02 10:18 | Emergency (ER) | payer MEDICARE ==
[~2024-01-02] VITALS: Ht 152.4 cm; Wt 47.6 kg
[2024-01-02 11:48] LABS: BASOPHILS # (AUTO) 0.02 K/uL (0.00-0.20); BASOPHILS % (AUTO) 0.3 % (0.0-5.0); EOSINOPHILS # (AUTO) 0.04 K/uL (0.00-0.70); EOSINOPHILS % (AUTO) 0.6 % (0.0-8.0); HEMATOCRIT 37.8 % (36-48); IMMATURE GRANULOCYTE ABSOLUTE 0.03 K/uL (0-1); LYMPHOCYTES # (AUTO) 1.6 K/uL (1.0-4.8); LYMPHOCYTES % (AUTO) 23.9 % (21.0-51.0); MEAN CORPUSCULAR HEMOGLOBIN 30.6 pg (27.0-33.0); MEAN CORPUSCULAR HGB CONC 34.4 g/dL (32.0-36.0); MEAN CORPUSCULAR VOLUME 88.9 fL (79-99); MONOCYTES # (AUTO) 0.6 K/uL (0.1-1.0); MONOCYTES % (AUTO) 8.8 % (3.0-13.0); NEUTROPHILS # (AUTO) 4.3 K/uL (1.8-7.7); NEUTROPHILS % (AUTO) 65.9 % (40.0-77.0); PLATELET COUNT (AUTO) 146 K/uL (130-400); RED BLOOD CELL COUNT(AUTO) 4.25 MIL/uL (4.00-5.50); RED CELL DISTRIBUTION WIDTH 15.4 % (11.0-15.5); WHITE BLOOD COUNT (AUTO) 6.6 K/uL (4.8-10.8)
[2024-01-02 12:04] VITALS: PULSE 72; RESP 18
[2024-01-02] MEDS: ALBUTEROL 0.083% 2.5 MG/3 ML INH IH ONE (12:04)
[2024-01-02 12:23] LABS: CREATININE 0.7 mg/dL (0.5-1.0); POTASSIUM 3.7 mmol/L (3.5-5.1)
[2024-01-02 12:26] LABS: ALBUMIN 3.5 g/dL (3.5-5.0); BILIRUBIN,TOTAL 1.2 mg/dL (0.2-1.0); MAGNESIUM 1.6 mg/dL (1.80-2.40); TOTAL PROTEIN, SERUM 7.6 g/dL (6.0-8.3)
[2024-01-02 12:53] LABS: B-TYPE NATRIURETIC PEPTIDE 566 pg/mL (0-100)
[2024-01-02] MEDS: FUROSEMIDE 40MG VIAL IV ONE (13:51)
[2024-01-02 16:21] VITALS: BP 142/74; PULSE 82; RESP 18; O2SAT 96
[2024-01-02] MEDS: Solu-medROL 125MG VIAL IVP ONE (16:31)
[2024-01-02] MEDS ORDERED: BUDE90AE IH (17:24)
[2024-01-02] MEDS ORDERED: BENZ-39 PO (17:24)
[2024-01-02] MEDS ORDERED: ALBUHFA IH (17:24)
== END 2024-01-02 18:05 | disposition home or self-care (01) ==
LOC: EDH 10:18
DX: R05.9 Cough, unspecified (principal); R03.0 Elevated blood-pressure reading, without diagnosis of hypertension; E87.1 Hypo-osmolality and hyponatremia; E78.00 Pure hypercholesterolemia, unspecified; E83.42 Hypomagnesemia; Z20.822 Contact with and (suspected) exposure to COVID-19; Z79.899 Other long term (current) drug therapy; Z79.01 Long term (current) use of anticoagulants; Z88.6 Allergy status to analgesic agent; Z95.1 Presence of aortocoronary bypass graft
CPT/HCPCS: 99285; 96374; 71045; 96375; 87426; 83735; 84484; 80053; 83880; 85025; 87040; 87086; 87186; 87205; 83605 ×2; 36415; 93005; 94640; 87071; J2919; J1940

== ENCOUNTER 2024-01-13 19:07 | Inpatient (IN) | payer MEDICARE ==
[~2024-01-13] VITALS: Ht 152.4 cm; Wt 45.5 kg
[~2024-01-13 19:07] MED LIST changes: +ALBUHFA IH; +BENZ-39 PO; +BUDE90AE IH
[2024-01-13 19:57] LABS: BASOPHILS # (AUTO) 0.01 K/uL (0.00-0.20); BASOPHILS % (AUTO) 0.2 % (0.0-5.0); EOSINOPHILS # (AUTO) 0.05 K/uL (0.00-0.70); EOSINOPHILS % (AUTO) 0.8 % (0.0-8.0); HEMATOCRIT 38.1 % (36-48); IMMATURE GRANULOCYTE ABSOLUTE 0.01 K/uL (0-1); LYMPHOCYTES # (AUTO) 1.6 K/uL (1.0-4.8); MEAN CORPUSCULAR HEMOGLOBIN 30.8 pg (27.0-33.0); MEAN CORPUSCULAR HGB CONC 33.6 g/dL (32.0-36.0); MEAN CORPUSCULAR VOLUME 91.8 fL (79-99); MONOCYTES # (AUTO) 0.7 K/uL (0.1-1.0); MONOCYTES % (AUTO) 10.8 % (3.0-13.0); PLATELET COUNT (AUTO) 119 K/uL (130-400); RED BLOOD CELL COUNT(AUTO) 4.15 MIL/uL (4.00-5.50); RED CELL DISTRIBUTION WIDTH 15.5 % (11.0-15.5); WHITE BLOOD COUNT (AUTO) 6.3 K/uL (4.8-10.8)
[2024-01-13 20:07] LABS: INR 1.2 (0.85-1.15); PROTHROMBIN TIME 12.8 SEC (9.6-11.6)
[2024-01-13 20:08] LABS: CREATININE 0.7 mg/dL (0.5-1.0); PARTIAL THROMBOPLASTIN TIME 33.2 SEC (26.3-35.5); POTASSIUM 3.9 mmol/L (3.5-5.1)
[2024-01-13 20:19] LABS: SARS-CoV-2, RNA, NAAT NEGATIVE SARS CoV-2 (NEGATIVE)
[2024-01-13 20:23] LABS: MAGNESIUM 1.6 mg/dL (1.80-2.40)
[2024-01-13 20:26] LABS: INFLUENZA TYPE A Negative For Type A (NEGATIVE); INFLUENZA TYPE B Negative For Type B (NEGATIVE)
[2024-01-13 20:33] LABS: B-TYPE NATRIURETIC PEPTIDE 720 pg/mL (0-100)
[2024-01-13] MEDS: Solu-medROL 125MG VIAL IVP ONE (20:57)
[2024-01-13 21:26] LABS: APPEARANCE,URINE CLEAR (CLEAR); BILIRUBIN,URINE NEGATIVE (NEGATIVE); COLOR,URINE COLORLESS (YELLOW); GLUCOSE, URINE (UA) NEGATIVE (NEGATIVE); KETONES,URINE NEGATIVE (NEGATIVE); LEUKOCYTE ESTERASE ,URINE NEGATIVE Leu/uL (NEGATIVE); NITRATE,URINE NEGATIVE (NEGATIVE); PROTEIN,URINE NEGATIVE (NEGATIVE); UROBILINOGEN,URINE 0.2 mg/dL (0.2-1.0)
[2024-01-13] MEDS ORDERED: POTASSIUM CHLORIDE 20MEQ/100ML 100 ML IV PRN (21:30)
[2024-01-13] MEDS ORDERED: DEXTROSE 50%-WATER 50 ML DISP.SYRIN IV PRN (21:30)
[2024-01-13] MEDS ORDERED: POTASSIUM CHLORIDE 10% ELIXIR 20 MEQ/15 ML UDCUP PO PRN (21:30)
[2024-01-13] MEDS ORDERED: GLUCAGON 1MG KIT 1 MG ML IM PRN (21:30)
[2024-01-13 21:36] LABS: ADD UA MICROSCOPIC YES
[2024-01-13 21:46] LABS: RBC,URINE 0-1 /HPF (0-1); WBC,URINE 0-1 /HPF (0-1)
[2024-01-13] MEDS: IpraTROPium/alBUTERol SULFATE 3 ML SOLUTION IH ONE (21:46)
[2024-01-13 21:48] VITALS: PULSE 82; RESP 18
[2024-01-13 21:51] LABS: ABG BASE EXCESS -1.1 mmol/L (-2.0-3.0); ABG HCO3 22.1 mmol/L (21.0-28.0); ABG OXYGEN SATURATION 94.3 % (94.0-98.0); ABG PCO2 33 mmHg (32-45); ABG PH 7.442 (7.350-7.450); PO2, ARTERIAL BG 67.7 mmHg (83.0-108.0); VENT MODE, BG RA,21 (ROOM AIR)
[2024-01-13 22:05] VITALS: BP 156/85; PULSE 118; RESP 18; TEMP 98
[2024-01-13] MEDS ORDERED: guaiFENesin SUGAR-FREE 100 MG/5 ML UDCUP PO PRN (23:00)
[2024-01-13] MEDS ORDERED: LORA10TA7 PO (23:03)
[2024-01-13] MEDS ORDERED: DILT120C47 PO (23:03)
[2024-01-13] MEDS ORDERED: BENZ-226 PO (23:03)
[2024-01-13] MEDS ORDERED: [UNRECOGNIZED DRUG - CODE] PO (23:03)
[2024-01-13] MEDS ORDERED: SERT-440 PO (23:03)
[2024-01-13] MEDS ORDERED: FURO40TA5 PO (23:03)
[2024-01-13] MEDS ORDERED: BUDE180H IH (23:05)
[2024-01-13] MEDS ORDERED: LEVO-70 PO (23:06)
[2024-01-13] MEDS: cefTRIAXone 1G VIAL IVPB ONE (23:18)
[2024-01-13] MEDS: ZOLPidem TARTrate 5 MG TAB PO SCH (23:18)
[2024-01-13] MEDS: IpraTROPium 0.5 MG/2.5 ML INH IH SCH (23:40)
[2024-01-13] MEDS: BUDESONIDE 0.5 MG/2 ML INH IH SCH (23:40)
[2024-01-13] MEDS: ALBUTEROL 0.083% 2.5 MG/3 ML INH IH SCH (23:40)
[2024-01-13 23:45] VITALS: PULSE 82; RESP 19; O2SAT 97
[2024-01-13 23:46] VITALS: PULSE 84; RESP 18
[2024-01-14] VITALS (14 sets, daily range): BP systolic 100–156; BP diastolic 49–85; PULSE 78–116; RESP 16–20; TEMP 97.9–98.4; O2SAT 94–99
[2024-01-14] MEDS: AZITHROMYCIN 500MG+NS 250ML 250 ML IVPB SCH (00:14)
[2024-01-14] MEDS ORDERED: IOHEXOL 350 MG/ML 100ML INFUS..BTL IV ONE (00:24)
[2024-01-14] MEDS: MAGNESIUM 2GM PREMIX 50ML 50 ML IV PRN (03:06)
[2024-01-14] MEDS ORDERED: DiphenhydrAMINE HCL 25 MG CAPSULE PO PRN (03:30)
[2024-01-14] MEDS: MAGNESIUM 2GM PREMIX 50ML 50 ML IV ONE (04:04)
[2024-01-14] MEDS: DOXYCYCLINE 100MG+NS 250ML 250 ML IV SCH (05:07)
[2024-01-14 05:10] LABS: HEMATOCRIT 37.1 % (36-48); MEAN CORPUSCULAR HEMOGLOBIN 31.1 pg (27.0-33.0); MEAN CORPUSCULAR VOLUME 91.6 fL (79-99); RED BLOOD CELL COUNT(AUTO) 4.05 MIL/uL (4.00-5.50); RED CELL DISTRIBUTION WIDTH 15.6 % (11.0-15.5); WHITE BLOOD COUNT (AUTO) 4.7 K/uL (4.8-10.8)
[2024-01-14] MEDS: INSULIN humuLIN R 100 UNIT/ML 3ML SQ SCH (05:23)
[2024-01-14 05:28] LABS: HEMOGLOBIN A1C 5.4 % (4.0-6.0)
[2024-01-14 05:41] LABS: CREATININE 0.6 mg/dL (0.5-1.0); MAGNESIUM 2.2 mg/dL (1.80-2.40); PHOSPHORUS 3.2 mg/dL (2.5-4.9); POTASSIUM 3.8 mmol/L (3.5-5.1); THYROID STIMULATING HORMONE 0.93 uIU/mL (0.36-3.74)
[2024-01-14] MEDS: SERTraline HCL 50 MG TABLET PO SCH (08:31)
[2024-01-14] MEDS: LORATAdine 10 mg 10 MG TABLET PO SCH (08:32)
[2024-01-14] MEDS: LISINOPRIL 5 MG TABLET PO SCH (08:32)
[2024-01-14] MEDS: BENZONATATE 100 MG CAPSULE PO SCH (08:32)
[2024-01-14] MEDS: APIXaban 2.5 MG TABLET PO SCH (08:32)
[2024-01-14] MEDS: dilTIAZem 120MG SR CAP PO SCH (08:33)
[2024-01-14] MEDS: furoSEMIDE 20MG VIAL IV SCH (08:34)
[2024-01-14] MEDS: cefTRIAXone 1G VIAL IVPB SCH (14:29)
[2024-01-14] MEDS: acetaMINOPHEN 325 MG TAB PO PRN (15:46)
[2024-01-14] MEDS: atorVAStatin 40 MG TABLET PO SCH (19:47)
[2024-01-14] MEDS: ZOLPidem TARTrate 5 MG TAB PO PRN (22:44)
[2024-01-15 04:00] VITALS: BP 125/65; PULSE 85; RESP 20; TEMP 98.1
[2024-01-15 05:26] LABS: BASOPHILS # (AUTO) 0.01 K/uL (0.00-0.20); BASOPHILS % (AUTO) 0.1 % (0.0-5.0); HEMATOCRIT 34.3 % (36-48); IMMATURE GRANULOCYTE ABSOLUTE 0.03 K/uL (0-1); LYMPHOCYTES # (AUTO) 1.8 K/uL (1.0-4.8); LYMPHOCYTES % (AUTO) 19.9 % (21.0-51.0); MEAN CORPUSCULAR HEMOGLOBIN 30.2 pg (27.0-33.0); MEAN CORPUSCULAR HGB CONC 33.2 g/dL (32.0-36.0); MONOCYTES # (AUTO) 0.9 K/uL (0.1-1.0); NEUTROPHILS # (AUTO) 6.2 K/uL (1.8-7.7); NEUTROPHILS % (AUTO) 69.7 % (40.0-77.0); PLATELET COUNT (AUTO) 114 K/uL (130-400); RED BLOOD CELL COUNT(AUTO) 3.77 MIL/uL (4.00-5.50); WHITE BLOOD COUNT (AUTO) 8.9 K/uL (4.8-10.8)
[2024-01-15 05:47] LABS: CREATININE 0.7 mg/dL (0.5-1.0); POTASSIUM 3.5 mmol/L (3.5-5.1)
[2024-01-15] MEDS: KCL 20 MEQ ERTAB PO PRN (05:58)
[2024-01-15 06:36] VITALS: PULSE 85; RESP 18
[2024-01-15 07:11] VITALS: PULSE 89; RESP 18; O2SAT 100
[2024-01-15 08:00] VITALS: BP 115/51; PULSE 97; RESP 18; TEMP 97.8; O2SAT 99
[2024-01-15 11:09] VITALS: PULSE 90; RESP 18
[2024-01-15 12:00] VITALS: BP 125/59; PULSE 96; RESP 18; TEMP 98
[2024-01-15] MEDS ORDERED: DOXY100C5 PO (13:13)
[2024-01-15] MEDS ORDERED: ALBU18HF7 IH (13:13)
== END 2024-01-15 14:30 | disposition home or self-care (01) | DRG 193 ==
LOC: EDH 19:07 → EDHIP 20:58 → 4CH 21:43 → 4BH 01-14 15:33
PROVIDERS: ADMIT Internal Medicine; ATTEND Internal Medicine
DX: J18.9 Pneumonia, unspecified organism (principal); J96.01 Acute respiratory failure with hypoxia; I13.0 Hypertensive heart and chronic kidney disease with heart failure and stage 1 through stage 4 chronic kidney disease, or unspecified chronic kidney disease; J98.11 Atelectasis; N17.9 Acute kidney failure, unspecified; M62.82 Rhabdomyolysis; J91.8 Pleural effusion in other conditions classified elsewhere; R64 Cachexia; Z20.822 Contact with and (suspected) exposure to COVID-19; I50.9 Heart failure, unspecified; R73.9 Hyperglycemia, unspecified; N18.9 Chronic kidney disease, unspecified; D69.6 Thrombocytopenia, unspecified; E78.00 Pure hypercholesterolemia, unspecified; E83.42 Hypomagnesemia; E87.8 Other disorders of electrolyte and fluid balance, not elsewhere classified; I25.10 Atherosclerotic heart disease of native coronary artery without angina pectoris; R54 Age-related physical debility; R74.8 Abnormal levels of other serum enzymes; G47.00 Insomnia, unspecified; F41.9 Anxiety disorder, unspecified; Z91.148 Patient's other noncompliance with medication regimen for other reason; Z95.0 Presence of cardiac pacemaker; Z95.1 Presence of aortocoronary bypass graft
CPT/HCPCS: 36415; 36600; 71045; 71270; 80048; 81001; 82550; 82803; 82948; 83036; 83735; 83880; 84100; 84443; 84484; 85025; 85027; 85378; 85610; 85730; 87420; 87635; 87804; 93005; 93970; 94640; 94664; 96374; G0378; J0456; J0696; J1940; J2919; J3475; J3490; Q9967

== ENCOUNTER → 2024-07-08 | Outpatient (CLI) | payer MEDICARE ==
[~2024-07-08] MED LIST changes: +ALBU18HF7 IH; -ALBUHFA IH; +BENZ-226 PO; -BENZ-39 PO; +BUDE180H IH; -BUDE90AE IH; -DICY10 PO; -DICY10CA2 PO; -DILT-36 PO; +DILT120C47 PO; +DOXY100C5 PO; -FURO20TA6 PO; -HYDR-4060 PO; -HYDR28.32 TP; -LACT10SO95 PO; +LORA10TA7 PO; -MECL-302 PO; -ONDA-104 PO; -ONDA-243 PO; -PANT40TA54 PO; -SERT-439 PO; +SERT-440 PO; -SUCR1TAB2 PO; +[UNRECOGNIZED DRUG - CODE] PO
--- NOTE | 2024-07-08 17:01 | HMCIMG ---
CHEST 2VWS HISTORY: Chronic pulmonary edema COMPARISON: 01/15/2024 FINDINGS: Frontal and lateral projections of the chest were obtained. There are mild bilateral pulmonary infiltrates and pleural effusions. The heart is enlarged. Poststernotomy changes are seen. Pacemaker is seen entering from the left. No evidence of aortic calcification is seen. Degenerative changes are seen of the thoracolumbar spine. IMPRESSION: 1. Mild bilateral pulmonary infiltrates with small bilateral pleural effusions.
== END | disposition home or self-care (01) ==
LOC: RAH 15:21
PROVIDERS: ATTEND Family Medicine
DX: J90 Pleural effusion, not elsewhere classified (principal); J81.1 Chronic pulmonary edema; R91.8 Other nonspecific abnormal finding of lung field; M47.815 Spondylosis without myelopathy or radiculopathy, thoracolumbar region; I51.7 Cardiomegaly
CPT/HCPCS: 71046

== ENCOUNTER 2024-08-23 04:32 | Inpatient (IN) | payer MEDICARE ==
[~2024-08-23] VITALS: Ht 152.4 cm; Wt 47.5 kg
--- NOTE | 2024-08-23 04:45 | ERN ---
General Chief Complaint: Mechanical Fall Stated Complaint: FALL Time Seen by MD: 04:38 Source: patient History of Present Illness Initial Comments On the ground with the right side of her head. She was using her left hand to help break her fall and that to is hurting her. She is on blood thinners. There was no loss of consciousness. She is also starting to say that her abdo nevaeh pain is increasing since she arrived in the ED. Timing/Duration: 1 hour Allergies: Coded Allergies: NSAIDS (Non-Steroidal Anti-Inflamma (Verified Allergy, Unknown, DO NOT GIVE PER MD, 06/14/15) Home Meds Active Scripts Albuterol Sulfate (Ventolin Hfa) 90 Mcg Hfa.aer.ad, 18 GM IH Q6HPRN PRN for SHORTNESS OF BREATH/WHEEZING, #1 INHALER 2 Refills Prov:SAIMA GROSS 01/15/24 Doxycycline Hyclate (Doxycycline Hyclate) 100 Mg Capsule, 100 MG PO BID for 7 Days, #14 CAP Prov:SAIMA GROSS 01/15/24 Furosemide (Furosemide) 40 Mg Tablet, 40 MG PO DAILY, #60 TAB Prov:BERNICE KOCH MD 10/08/23 Reported Medications Budesonide (Pulmicort Inhaler) 180 Mcg Puff, 90 MCG IH BID, INH 01/13/24 Loratadine (Loratadine) 10 Mg Tablet, 10 MG PO DAILY, TAB 01/13/24 Furosemide (Furosemide) 40 Mg Tablet, 40 MG PO DAILY, TAB 01/13/24 Benzonatate (Benzonatate) 100 Mg Capsule, 100 MG PO TID, CAP 01/13/24 Diphenhydramine HCl (Banophen) 25 Mg Capsule, 25 MG PO Q6HPRN PRN for ITCHING, CAP 01/13/24 Diltiazem HCl (Cartia Xt) 120 Mg Cap.er.24h, 120 MG PO DAILY, CAPSULE.DR 01/13/24 Sertraline HCl (Sertraline HCl) 100 Mg Tablet, 100 MG PO DAILY, TAB 01/13/24 Apixaban (Eliquis) 2.5 Mg Tablet, 2.5 MG PO BID, TAB 01/24/22 Lisinopril (Lisinopril) 5 Mg Tablet, 5 MG PO DAILY, TAB 01/24/22 Zolpidem Tartrate (Zolpidem Tartrate) 5 Mg Tablet, 5 MG PO HSPRN PRN for INSOMNIA, TAB 01/24/22 Atorvastatin Calcium (LIPITOR) 40 Mg Tablet, 40 MG PO HS, TAB 01/24/22 Past Medical History Past Medical History: A-Fib, Depression, Hypertension Medical History Other: VERTIGO Past Surgical History: Pacer/AICD Family History Family History: Negative Social History Social History: Negative Female( History) History: Not Applicable Constitutional: (-) chills, (-) diaphoresis, (-) fever, (-) malaise, (-) weakness, (-) other documentation EENTM: (-) eye pain, (-) blurred vision, (-) tearing, (-) double vision, (-) ear pain, (-) ear discharge, (-) nose pain, (-) nose congestion, (-) throat pain, (-) Throat swelling, (-) mouth pain, (-) tooth pain, (-) mouth swelling, (-) other documentation Respiratory: (-) cough, (-) orthopnea, (-) short of breath, (-) stridor, (-) wheezing, (-) other documentation Cardiovascular: (-) chest pain, (-) edema, (-) palpitations, (-) syncope, (-) dyspnea on exertion, (-) other documentation Gastrointestinal/Abdominal: (-) nausea, (-) vomiting, (-) diarrhea, (-) abdominal pain, (-) abdominal distention, (-) constipation, (-) rectal bleeding, (-) dark stool/melena, (-) other documentation Musculoskeletal: (-) Neck pain, (-) back pain, (-) Flank Pain, (-) joint pain, (-) joint swelling, (-) muscle pain, (-) muscle stiffness, (-) gout, (-) other documentation Physical Exam General Appearance: (+) mild distress Orientation: (+) alert Head/Face Trauma: Yes Face Comment Patient has a hematoma on the right parietal region. There was no bleeding Eye: bilateral eye normal inspection, bilateral eye PERRL, bilateral eye EOMI Ear, Nose, Throat: (+) hearing grossly normal, (+) normal ENT inspection, (+) moist mucous membraine Neck: (+) normal inspection, (+) supple, (+) full range of motion Respiratory: (+) chest non-tender, (+) lungs clear, (+) well ventilated Heart: (+) murmur, (+) systolic murmur Vascular: (+) no edema, (+) normal peripheral pulse Gastrointestinal: (+) soft, (+) non-tender, (+) bowel sound present Results Laboratory and Microbiology Lab and Micro Result Laboratory Tests Test 08/23/24 04:50 08/23/24 05:59 White Blood Count 7.2 K/uL (4.8-10.8) Red Blood Count 3.92 MIL/uL (4.00-5.50) L Hemoglobin 11.9 g/dL (12.0-16.0) L Hematocrit 36.1 % (36-48) Mean Corpuscular Volume 92.1 fL (79-99) Mean Corpuscular Hemoglobin 30.4 pg (27.0-33.0) Mean Corpuscular Hemoglobin Concent 33.0 g/dL (32.0-36.0) Red Cell Distribution Width 15.6 % (11.0-15.5) H Platelet Count 128 K/uL (130-400) L Mean Platelet Volume 11.8 fL (7.5-10.5) H Immature Granulocyte % (Auto) 0.3 % (0-1) Neutrophils (%) (Auto) 67.3 % (40.0-77.0) Lymphocytes (%) (Auto) 20.4 % (21.0-51.0) L Monocytes (%) (Auto) 10.3 % (3.0-13.0) Eosinophils (%) (Auto) 1.4 % (0.0-8.0) Basophils (%) (Auto) 0.3 % (0.0-5.0) Neutrophils # (Auto) 4.8 K/uL (1.8-7.7) Lymphocytes # (Auto) 1.5 K/uL (1.0-4.8) Monocytes # (Auto) 0.7 K/uL (0.1-1.0) Eosinophils # (Auto) 0.10 K/uL (0.00-0.70) Basophils # (Auto) 0.02 K/uL (0.00-0.20) Absolute Immature Granulocyte (auto 0.02 K/uL (0-1) Nucleated Red Blood Cells 0.0 % (0.0-0.19) Sodium Level 139 mmol/L (136-145) Potassium Level 3.4 mmol/L (3.5-5.1) L Chloride Level 102 mmol/L (101-111) Carbon Dioxide Level 30 mmol/L (21-32) Blood Urea Nitrogen 14 mg/dL (7-18) Creatinine 0.7 mg/dL (0.5-1.0) Glomerular Filtration Rate Calc 85 mL/min (>90) Random Glucose 100 mg/dL (70-105) Total Calcium 9.2 mg/dL (8.5-10.1) Troponin I High Sensitivity 32 ng/L (4-50) Urine Color LIGHT-YELLOW (YELLOW) Urine Appearance CLOUDY (CLEAR) H Urine pH 8.0 (5.0-8.0) Urine Specific Kosse 1.006 (1.001-1.031) Urine Protein NEGATIVE mg/dL (NEGATIVE) Urine Glucose (UA) NEGATIVE mg/dL (NEGATIVE) Urine Ketones NEGATIVE mg/dL (NEGATIVE) Urine Occult Blood SMALL (NEGATIVE) H Urine Nitrate NEGATIVE (NEGATIVE) Urine Bilirubin NEGATIVE mg/dL (NEGATIVE) Urine Urobilinogen 2.0 mg/dL (0.2-1.0) H Urine Leukocyte Esterase NEGATIVE Yoshi/uL Urine RBC 6-10 /HPF (0-1) H Urine WBC 0-1 /HPF (0-1) Urine Squamous Epithelial Cells RARE /HPF (0-2) Urine Bacteria RARE /HPF (None Seen) MDM Patient with a ground level fall on blood thinners large hematoma on the right parietal scalp. I will do a CT scan of her head. She is also complaining of left thumb pain so I will get plain films of her left hand and wrist. She is complaining of increased abdominal pain so I will get a noncontrast CT of her abdomen and pelvis as well. We will get a CBC and coags. I will also give her fluid. I am not sure the reason for her fall so I will get a BMP a UA and an EKG and a troponin. CBC was normal chemistry panel was normal, CT head negative except for right parietal hematoma, CT abdomen negative except for concern about thickened bladder wall, C-spine films negative as well . Plain films of left wrist were negative. Dr. Melendez took over care at 7:00 a.m. I re-evaluated the patient. She feels very weak. Vital signs are stable. The lab workup was relatively unremarkable. Imaging is all unremarkable other than soft tissue injury. Since the patient was very weak she feels like she may fall again. She usually does use a walker it in the for observation. Consultation: Hospitalist. ED Course Orders Procedure Category Date Status Time Ct Head/Brain W/O CT 08/23/24 Resulted Contrast 04:45 Wrist 2vws Lt RAD 08/23/24 Taken 04:45 Forearm 2vws Lt RAD 08/23/24 Taken 04:45 Ct Abdomen/Pelvis W/O CT 08/23/24 Taken Contrast 04:45 Cbc With Differential LAB 08/23/24 Complete 04:45 Urinalysis Profile LAB 08/23/24 Complete 04:48 12 Lead Ekg Tracing- EKG 08/23/24 Logged Technical 04:48 Basic Metabolic Panel LAB 08/23/24 Complete 04:48 Ct Cervical Spine W/O CT 08/23/24 Resulted Contrast 04:54 Morphine 2mg Syg PHA 08/23/24 Complete (Morphine 2mg Syg) 06:00 Remove Pt Off CPOE 08/23/24 Transmitted C-Collar. (Er) 06:09 Knee 3 Vw Bilateral RAD 08/23/24 Logged 07:32 Pelvis 1-2vws RAD 08/23/24 Logged 07:32 Chest 1vw RAD 08/23/24 Logged 07:35 Troponin I High LAB 08/23/24 Complete Sensitivity 07:35 Current Medications Medications (Trade) Dose Ordered Sig/Adal Route PRN Reason Start Time Stop Time Status Last Admin Dose Admin Morphine Sulfate (morPHINE 2MG SYG) 2 mg ONCE ONCE IVP 08/23/24 06:00 08/23/24 06:01 DC 08/23/24 06:03 Vital Signs Date Time Temp Pulse Resp B/P (MAP) Pulse Ox O2 Delivery O2 Flow Rate FiO2 08/23/24 04:33 98.8 94 20 153/78 97 Room Air 0 DX & DISP Disposition: Inpatient Departure Impression: Primary Impression: Ground-level fall Additional Impressions: Generalized weakness, Anticoagulated by anticoagulation treatment, Traumatic hematoma of head, Normocytic anemia, Mild dehydration, Thrombocytopenia Condition: Stable Referrals: SAMIA JOHNSTON Jr., MD (PCP) DIONNE HAND MD Aug 23, 2024 04:45 CLAIRE MELENDEZ DO Aug 23, 2024 07:38
--- NOTE | 2024-08-23 04:55 | NUR ---
PATIENT TAKEN TO CT AT THIS TIME
[2024-08-23 04:59] LABS: BASOPHILS # (AUTO) 0.02 K/uL (0.00-0.20); BASOPHILS % (AUTO) 0.3 % (0.0-5.0); EOSINOPHILS % (AUTO) 1.4 % (0.0-8.0); HEMATOCRIT 36.1 % (36-48); IMMATURE GRANULOCYTE ABSOLUTE 0.02 K/uL (0-1); LYMPHOCYTES # (AUTO) 1.5 K/uL (1.0-4.8); LYMPHOCYTES % (AUTO) 20.4 % (21.0-51.0); MEAN CORPUSCULAR HEMOGLOBIN 30.4 pg (27.0-33.0); MEAN CORPUSCULAR VOLUME 92.1 fL (79-99); MONOCYTES # (AUTO) 0.7 K/uL (0.1-1.0); MONOCYTES % (AUTO) 10.3 % (3.0-13.0); NEUTROPHILS # (AUTO) 4.8 K/uL (1.8-7.7); NEUTROPHILS % (AUTO) 67.3 % (40.0-77.0); PLATELET COUNT (AUTO) 128 K/uL (130-400); RED BLOOD CELL COUNT(AUTO) 3.92 MIL/uL (4.00-5.50); RED CELL DISTRIBUTION WIDTH 15.6 % (11.0-15.5); WHITE BLOOD COUNT (AUTO) 7.2 K/uL (4.8-10.8)
[2024-08-23 05:07] LABS: CREATININE 0.7 mg/dL (0.5-1.0); POTASSIUM 3.4 mmol/L (3.5-5.1)
[2024-08-23] MEDS: morPHINE 2 MG SYG IVP ONE (06:03)
[2024-08-23 06:52] LABS: APPEARANCE,URINE CLOUDY (CLEAR); BILIRUBIN,URINE NEGATIVE (NEGATIVE); COLOR,URINE LIGHT-YELLOW (YELLOW); GLUCOSE, URINE (UA) NEGATIVE (NEGATIVE); KETONES,URINE NEGATIVE (NEGATIVE); LEUKOCYTE ESTERASE ,URINE NEGATIVE Leu/uL (NEGATIVE); NITRATE,URINE NEGATIVE (NEGATIVE); OCCULT BLOOD,URINE SMALL (NEGATIVE); PROTEIN,URINE NEGATIVE (NEGATIVE)
[2024-08-23 06:54] LABS: ADD UA MICROSCOPIC YES
[2024-08-23 06:56] LABS: BACTERIA,URINE RARE /HPF (None Seen); SQUAMOUS EPITHELIAL CELL,UR RARE /HPF (0-2); WBC,URINE 0-1 /HPF (0-1)
--- NOTE | 2024-08-23 07:51 | HMCIMG ---
CT HEAD/BRAIN W/O CONTRAST HISTORY: Fall COMPARISON: None TECHNIQUE: Multiple sequential axial images of the head were obtained from the base of the skull through vertex. Patient was not given contrast through intravenous route. FINDINGS: The ventricles and extraventricular CSF spaces are dilated consistent with cerebral atrophy. Nonspecific white matter changes seen. Right parietal scalp soft tissue swelling. There is no midline shift, mass effect or herniation. No acute intracranial bleed is seen. Visualized portion of the paranasal sinuses are grossly within normal limits. IMPRESSION: 1. No acute intracranial bleed is seen. 2. Atrophy with white matter changes. Right parietal scalp soft tissue swelling. CT was performed with one or more following dose reduction techniques: automated exposure control, adjustment of the mA and kv according to patient's size, or use of a iterative reconstruction technique.
--- NOTE | 2024-08-23 07:55 | HMCIMG ---
CT CERVICAL SPINE W/O CONTRAST HISTORY: Pain COMPARISON: None TECHNIQUE: Multiple sequential axial images of the cervical spine were obtained including post processing sagittal and coronal reconstruction images. Patient was not given contrast through intravenous route. FINDINGS: The study is limited due to poor positioning. There is anterior subluxation of C4 over C5. Disc space narrowing are seen at C5-6 and C6-7 levels. There are degenerative changes with cervical spine spondylosis. There is straightening of normal lordotic cervical curvature which may be related to muscle spasm or positioning. There is no loss of vertebral height. Evaluation for disc and cord pathology is limited with CT study. No evidence of fracture or dislocation is seen. IMPRESSION: 1. No fracture is seen. DJD with cervical spine spondylosis. CT was performed with one or more following dose reduction techniques: automated exposure control, adjustment of the mA and kv according to patient's size, or use of a iterative reconstruction technique.
--- NOTE | 2024-08-23 08:37 | HMCIMG ---
CT ABDOMEN/PELVIS W/O CONTRAST HISTORY: Status post fall COMPARISON: None TECHNIQUE: Multiple sequential axial images of the abdomen and pelvis were obtained from the dome of the diaphragm through symphysis pubis. Patient was not given contrast through intravenous route. Oral contrast was not given. FINDINGS: Small bilateral pleural effusions are seen. Mild interstitial fibrotic changes are seen. Coronary arterial calcifications are seen sternotomy changes are seen. Degenerative changes of the thoracolumbar spine are present. The heart is not enlarged. Liver measured 13 cm. Cirrhotic changes of the liver are noted. Postcholecystectomy changes are seen. There are motion artifacts degrading the image quality. There is diverticulosis. The liver, spleen, adrenal glands and pancreas are unremarkable. There is no evidence of hydronephrosis bilaterally. No evidence of renal stone is seen. Fecal material is seen in the colon. There are normal size retroperitoneal and mesenteric lymph nodes. No ascites is seen. Atherosclerotic changes are present. uterus is enlarged suggestive of fibroid uterus. No CT evidence of acute appendicitis is seen. Pelvic sidewalls are symmetric bilaterally. Bladder is well distended without wall thickening. IMPRESSION: 1. Small bilateral pleural effusions are seen with interstitial fibrosis. Cirrhotic liver. Mild diverticulosis. CT was performed with one or more following dose reduction techniques: automated exposure control, adjustment of the mA and kv according to patient's size, or use of a iterative reconstruction technique.
[2024-08-23] MEDS ORDERED: ZOLP-685 PO (08:58)
[2024-08-23] MEDS ORDERED: DILT-36 PO (08:58)
[2024-08-23] MEDS ORDERED: APIX2.5T PO (08:59)
[2024-08-23] MEDS ORDERED: FURO40TA5 PO (09:00)
[2024-08-23] MEDS ORDERED: ATOR40TA69 PO (09:01)
[2024-08-23] MEDS ORDERED: CLON0.5T23 PO (09:06)
--- NOTE | 2024-08-23 09:21 | EKG ---
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 & Founder: [id number] : 1940 Requested By: DIONNE HAND Order Number: [id number] Reading MD: Betsy Soliz Measurements Intervals Pedro Rate: 91 P: 0 MT: 172 QRS: 37 QRSD: 142 T: 237 QT: 397 QTc: 486 Interpretive Statements Sinus rhythm Atrial premature complexes in couplets LVH with secondary repolarization abnormality ST elevation secondary to IVCD Compared to ECG 01/13/2024 19:27:18 Atrial premature complex(es) now present Left ventricular hypertrophy now present Early repolarization now present Atrial fibrillation no longer present Left bundle-branch block no longer present ST (T wave) deviation still present Electronically Signed On 08-23-2024 10:58:32 CDT by Betsy Soliz Please click the below link to view image of tracing.
[2024-08-23] MEDS ORDERED: oxyCODONE/aceTAMIN 5/325MG TAB PO PRN (09:30)
[2024-08-23] MEDS ORDERED: ZOLPidem TARTrate 5 MG TAB PO PRN (09:30)
[2024-08-23] MEDS ORDERED: guaiFENesin-DM 200/20MG 10ML PO PRN (09:30)
[2024-08-23] MEDS ORDERED: acetaMINOPHEN 325 MG TAB PO PRN ×2 (09:30)
[2024-08-23] MEDS ORDERED: ketOROlac 15MG/ML VIAL (15MG/ML) IV PRN (09:30)
[2024-08-23] MEDS ORDERED: NITROGLYCERIN 0.4 MG SL TAB SL PRN (09:30)
[2024-08-23] MEDS ORDERED: DEXTROSE 50%-WATER 50 ML DISP.SYRIN IV PRN (09:30)
[2024-08-23] MEDS ORDERED: DiphenhydrAMINE HCL 50 MG/ML VIAL IV PRN (09:30)
[2024-08-23] MEDS ORDERED: MAG/ALUM/SIMETH 30 ML UDCUP PO PRN (09:30)
[2024-08-23] MEDS ORDERED: FAMOTIDINE 20MG VIAL IV PRN (09:30)
[2024-08-23] MEDS ORDERED: PoTASSium chloRIDE 10MEQ/100ML 100 ML IV PRN (09:30)
[2024-08-23] MEDS ORDERED: PoTASSium chloRIDE 20MEQ ER 20 MEQ ERTAB PO PRN (09:30)
[2024-08-23] MEDS ORDERED: GLUCAGON 1MG KIT 1 MG ML IM PRN (09:30)
--- NOTE | 2024-08-23 10:19 | NUR ---
DOCUMENTED CRITICAL RESULT ON WRONG PATIENT.
[2024-08-23] MEDS ORDERED: LISI5TAB21 PO (10:33)
--- NOTE | 2024-08-23 11:04 | HP ---
[facility] HISTORY AND PHYSICAL Date of Service: Aug 23, 2024 Time of Service: 10:51 PCP:Dr Ludwig Admitting: Dr Mcnally, Allergies: No Allergy Information Available, No Known Drug Allergies HISTORY OF PRESENT ILLNESS: [ Patient is 84 years old female with a past medical history of AFib on Eliquis, CHF, debility, hypertension, Myocardial infarction, hyperlipidemia, Coronary Ar geovanna Disease s/p pacemaker/AICD placement, insomnia, anxiety, vertigo, cholecystectomy, appendectomy, who came to emergency department with a complaint of fall and shortness of breaths. Patient stated that she was trying to go to the bathroom and right before grabbing her clothes she suddenly turned and she lost balance. She tried to graft to something so she would not fall but u nfortunately she fell on floor and hit her head. Per patient and family member/ at the bedside patient did not lose the consciousness. Patient is on blood thinners Coumadin for AFib and that is why they decided to call 911 to bring patient to the hospital right away. Most recent vital signs temperature 98.8 pulse 85 respiration 18 blood pressure 158/76 patient is on 2 L nasal cannula satting 98%. WBC 7.2 hemoglobin 11.9 hematocrit 36.1 platelets 128. UA negative for leukocytosis or nitrates. So dium 139 potassium 3.4 CO2 30 BUN 14 creatinine 0.7 GFR [address] abdomen/pelvis shows small bilateral pleural effusion, interstitial fibrosis, cirrhotic liver, mild diverticulosis. CT head brain negative. Cervical spine CT negative. At this moment we are pending forearm x-ray, wrist x-ray, knee x- ray, pelvis x-ray, chest x-ray, 2D echo and ultrasound carotid. Patient will be admitted under hospitalist care for further evaluation/recommendation. Patient and family members/ at the bedside agrees with the further plan] REVIEW OF SYSTEMS CONSTITUTIONAL: Denies fevers, chills, or night sweats. No unintentional weight loss reported. NEUROLOGICAL: Denies headache, amaurosis fugax, motor weakness, sensory deficit, vertigo/spinning sensation, gait abnormalities, or tremors. Complains of a headache ENT: No hearing loss, otalgia, otorrhea, rhinitis, rhinorrhea, hoarseness, or sore throat. CARDIOVASCULAR: Denies any exertional angina, dyspnea on exertion, orthopnea, paroxysmal nocturnal dyspnea, palpitations, life-threatening arrhythmias, claudication. PULMONARY: Denies any shortness of breath, cough, phlegm/sputum, hemoptysis, pleuritic chest pain. SLEEP: Denies morning headaches, daytime somnolence or napping. Denies difficulty falling asleep, staying asleep, waking from sleep. Denies knowledge of snoring. GASTROINTESTINAL: Denies any type of dysphagia to either liquids or solids. Denies nausea, vomiting, pyrosis, early satiety, abdominal pain, diarrhea, constipation, or changes in stool consistency or caliber. Denies coffee-ground emesis, hematemesis, hematochezia, or melanotic stools. GENITOURINARY: Denies frequency, urgency, nocturia, hematuria or incontinence (Storage/Irritative symptoms.) Low urinary stream, straining to void, urinary intermittency or hesitancy, splitting of the voiding stream, terminal dribbling. ENDOCRINOLOGIC: Denies polyuria, polydipsia, polyphagia or heat/cold intolerances. HEMATOLOGIC: Denies thrombophilia/previous clots, or coagulopathy/bleeding disorders. ONCOLOGIC: Denies personal history of malignancy. DERMATOLOGIC: Denies rashes or pruritus. PSYCHIATRIC: Denies any suicidal or homicidal ideation. Denies hallucinations. PAST MEDICAL HISTORY: [ See HPI ] PAST SURGICAL HISTORY: [ Cholecystectomy, appendectomy, pacemaker AICD] PAST SOCIAL HISTORY: [Patient denies smoking. Patient denies any alcohol illicit. Patient denies any drug illicit ] FAMILY HISTORY: [ Patient lives at home with the family and two sons. Patient stated that she normally independent does not use any walker or cane] Coded Allergies: NSAIDS (Non-Steroidal Anti-Inflamma (Verified Allergy, Unknown, DO NOT GIVE PER MD, 06/14/15) PHYSICAL EXAM GENERAL APPEARANCE: The patient is awake, alert, and oriented, in no acute cardiopulmonary distress. NEUROLOGICAL: Cranial nerves II-XII grossly intact. Motor is 5/5 in bilateral upper and lower extremities proximal to distal. No sensory deficits. HEENT: Face is symmetric. Pupils are equal and reactive. Extraocular movements are intact. NECK: Supple. No JVD. No thyromegaly. No submental, submandibular, pre-/postauricular, occipital or supraclavicular lymphadenopathy. CHEST: Normal chest expansion. No Telemetry. LUNGS: Absence of any rales, rhonchi or any wheezing. CARDIOVASCULAR: Regular. S1 and S2 normal. No appreciable rubs, murmurs or gallops. ABDOMEN: Soft, nontender, and nondistended. There is no rebound, voluntary guarding, or rigidity. : Deferred. No Sebastian. EXTREMITIES: Non-edematous and not cyanotic. No clubbing. Good capillary refill. SKIN: No skin breakdown. Vital Sign (Last 24 Hours) 08/23/24 08/23/24 04:33 08:08 Temp 98.8 Pulse 85 Resp 18 B/P (MAP) 158/76 Pulse Ox 98 O2 Delivery Nasal Cannula* O2 Flow Rate 2 FiO2 28 LABS: Laboratory: Test 08/23/24 05:59 08/23/24 04:50 Range/Units Urine Color LIGHT-YELLOW YELLOW Urine Appearance CLOUDY H CLEAR Urine pH 8.0 5.0-8.0 Urine Specific [place] 1.006 1.001-1.031 Urine Protein NEGATIVE NEGATIVE mg/dL Urine Glucose (UA) NEGATIVE NEGATIVE mg/dL Urine Ketones NEGATIVE NEGATIVE mg/dL Urine Occult Blood SMALL H NEGATIVE Urine Nitrate NEGATIVE NEGATIVE Urine Bilirubin NEGATIVE NEGATIVE mg/dL Urine Urobilinogen 2.0 H 0.2-1.0 mg/dL Urine Leukocyte Esterase NEGATIVE NEGATIVE Yoshi/uL Urine RBC 6-10 H 0-1 /HPF Urine WBC 0-1 0-1 /HPF Urine Squamous Epithelial Cells RARE 0-2 /HPF Urine Bacteria RARE None Seen /HPF White Blood Count 7.2 4.8-10.8 K/uL Red Blood Count 3.92 L 4.00-5.50 MIL/uL Hemoglobin 11.9 L 12.0-16.0 g/dL Hematocrit 36.1 36-48 % Mean Corpuscular Volume 92.1 79-99 fL Mean Corpuscular Hemoglobin 30.4 27.0-33.0 pg Mean Corpuscular Hemoglobin Concent 33.0 32.0-36.0 g/dL Red Cell Distribution Width 15.6 H 11.0-15.5 % Platelet Count 128 L 130-400 K/uL Mean Platelet Volume 11.8 H 7.5-10.5 fL Immature Granulocyte % (Auto) 0.3 0-1 % Neutrophils (%) (Auto) 67.3 40.0-77.0 % Lymphocytes (%) (Auto) 20.4 L 21.0-51.0 % Monocytes (%) (Auto) 10.3 3.0-13.0 % Eosinophils (%) (Auto) 1.4 0.0-8.0 % Basophils (%) (Auto) 0.3 0.0-5.0 % Neutrophils # (Auto) 4.8 1.8-7.7 K/uL Lymphocytes # (Auto) 1.5 1.0-4.8 K/uL Monocytes # (Auto) 0.7 0.1-1.0 K/uL Eosinophils # (Auto) 0.10 0.00-0.70 K/uL Basophils # (Auto) 0.02 0.00-0.20 K/uL Absolute Immature Granulocyte (auto 0.02 0-1 K/uL Nucleated Red Blood Cells 0.0 0.0-0.19 % Sodium Level 139 136-145 mmol/L Potassium Level 3.4 L 3.5-5.1 mmol/L Chloride Level 102 101-111 mmol/L Carbon Dioxide Level 30 21-32 mmol/L Blood Urea Nitrogen 14 7-18 mg/dL Creatinine 0.7 0.5-1.0 mg/dL Glomerular Filtration Rate Calc 85 >90 mL/min Random Glucose 100 70-105 mg/dL Total Calcium 9.2 8.5-10.1 mg/dL Troponin I High Sensitivity 32 4-50 ng/L Current Medications Medications (Trade) Dose Ordered Sig/Adal Route PRN Reason Start Time Stop Time Status Last Admin Dose Admin Acetaminophen (TYLenol 325MG TAB) 650 mg Q4H PRN PO MILD PAIN (1-3) 08/23/24 09:30 08/23/24 09:10 DC Acetaminophen (TYLenol 325MG TAB) 650 mg Q6H PRN PO MILD PAIN (1-3) 08/23/24 09:30 09/22/24 09:29 Acetaminophen (TYLenol 325MG TAB) 650 mg Q6H PRN PO TEMPERATURE GREATER THAN 101.5 08/23/24 09:30 09/22/24 09:29 Al Hydroxide/Mg Hydroxide (MAALox PLUS 30ML) 30 ml Q6H PRN PO INDIGESTION 08/23/24 09:30 09/22/24 09:29 Dextrose (D50w) 50 ml AD PRN IV HYPOGLYCEMIA PROTOCOL 08/23/24 09:30 09/22/24 09:29 Diphenhydramine HCl (BENAdryl INJ) 25 mg Q6H PRN IV SEVERE ITCHING/RASH 08/23/24 09:30 09/22/24 09:29 Famotidine (Pepcid 20mg Vial) 20 mg BID PRN IV NAUSEA/VOMITING 08/23/24 09:30 08/23/24 09:10 DC Famotidine (Pepcid 20mg Vial) 20 mg Q24H IV 08/23/24 21:00 09/22/24 20:59 Glucagon (Glucagon 1mg Kit) 1 mg AD PRN IM HYPOGLYCEMIA PROTOCOL 08/23/24 09:30 09/22/24 09:29 Guaifenesin/ Dextromethorphan (RobiTUSSin DM 200/20MG 10ML) 10 ml Q4H PRN PO COUGH 08/23/24 09:30 09/22/24 09:29 Heparin Sodium (Porcine) (HEParin 5,000 UNIT VIAL) 5,000 unit BID SQ 08/23/24 21:00 09/22/24 20:59 Hydralazine HCl (APRESOLine 20MG INJ) 10 mg Q6H PRN IV For:SBP above 160;DBP above 90 08/23/24 09:30 09/22/24 09:29 Insulin Human Regular (humuLIN R 100 UNIT/ML 3ML) INSULIN SLIDING SCAL... ACHS SQ 08/23/24 11:30 09/22/24 11:29 Ketorolac Tromethamine (toRADol) 15 mg Q8H PRN IV MODERATE PAIN (4-6) 08/23/24 09:30 08/23/24 09:16 DC Lactulose (Constulose 20gm/ 30ml Udcup) 20 gm BID PRN PO CONSTIPATION 08/23/24 09:30 09/22/24 09:29 Magnesium Sulfate 50 ml @ 0 mls/hr PROTOCOL PRN IV other 08/23/24 09:30 09/22/24 09:29 Morphine Sulfate (morPHINE 2MG SYG) 1 mg Q4H PRN IVP SEVERE PAIN (7-10) IF NPO 08/23/24 09:30 08/30/24 09:29 Nitroglycerin (Nitrostat) 0.4 mg PROTOCOL PRN SL CHEST PAIN 08/23/24 09:30 09/22/24 09:29 Ondansetron HCl (zoFRAN 4MG INJ) 4 mg Q6H PRN IV NAUSEA/VOMITING 08/23/24 09:30 09/22/24 09:29 Oxycodone/ Acetaminophen (perCOCET) 1 tab Q6H PRN PO SEVERE PAIN (7-10) 08/23/24 09:30 08/30/24 09:29 Potassium Chloride 100 ml @ 100 mls/hr AD PRN IV POTASSIUM PROTOCOL 08/23/24 09:30 09/22/24 09:29 Potassium Chloride (K-Dur/Klor-Con 20meq) 10 meq AD PRN PO POTASSIUM PROTOCOL 08/23/24 09:30 09/22/24 09:29 Potassium Chloride (KCl 10% Elixir 20meq/15ml) 10 meq AD PRN PO POTASSIUM PROTOCOL 08/23/24 09:30 09/22/24 09:29 Sodium Chloride 1,000 ml @ 70 mls/hr [id number] IV 08/23/24 09:30 09/22/24 09:29 Zolpidem Tartrate (AmbIEN) 5 mg HS PRN PO INSOMNIA 08/23/24 09:30 09/22/24 09:29 DIAGNOSTICS / RADIOLOGY: [ ] ASSESSMENT: [ Acute hypoxic respiratory failure POA S/p fall POA AFib controlled on Eliquis POA Multifactorial anemia POA Acute on chronic diastolic CHF EF 30 to 35% 2D echo 11/17/2023 POA Interstitial fibrosis per CT abdomen/pelvis Bilateral pleural effusion per CT abdomen/pelvis Cirrhotic liver per CT abdomen/pelvis Mild diverticulosis per CT abdomen/pelvis Electrolyte imbalance hypokalemia K3.4 Debility Medical noncompliance Uncontrolled hypertension Hyperlipidemia History of Myocardial infarction Coronary Artery Disease s/p pacemaker/AICD Insomnia Anxiety Vertigo History of Cholecystectomy History of appendectomy] PLAN: [Admit to: Medical-surgical with tele floor Consults: None at this moment Antibiotics: None at this moment Tests: X-ray forearm, wrist x-ray, knee x-ray, pelvis x-ray, chest x-ray, 2D echo, ultrasound carotid NEURO: CT head negative Minimize central acting medications as possible. Fall Precautions. Well lighted room through the day and minimize interruptions through the night to prevent acute delirium. PULMONARY: Chest x-ray pending Supplemental 02 as needed BiPAP as necessary, for respiratory distress Titrate Fio2 to keep Spo2 > or = 90% DuoNebs and CPT as needed IS hourly while awake for pulmonary hygiene Out of bed to chair as tolerated VAP Bundle Maintain aspiration precautions at all times CARDIOVASCULAR: 2D echo pending Ultrasound carotid pending Follow hemodynamics. Vital signs per facility protocol GI & NUTRITION: CT abdomen/pelvis showed small bilateral pleural effusion, interstitial fibrosis, cirrhotic liver, mild diverticulosis Continue nutritional support Aspirations precautions Prokinetic agents and laxatives as needed KIDNEYS & ELECTROLYTES: Strict monitoring of intake and output Daily weights Avoid nephrotoxic agents Monitor electrolytes and replace as needed Goal urine output of 30mL/hr or 0.5mL/kg/hr Medications to be dosed according to renal function. Avoid contrast if possible ENDOCRINE: Maintain blood glucose between 100-180 at all times. Insulin sliding scale for blood glucose management Hypoglycemia and hyperglycemia protocol in place INFECTIOUS DISEASE: Trend temperature, WBC and procalcitonin level Follow cultures, deescalate antibiotics as soon as possible. Panculture if new onset fever HEMATOLOGY & COAGULATION: Monitor H&H. Keep Hgb > 7 Transfuse 1 unit of PRBC for Hgb < 7 Transfuse 1 pack of platelets of platelets < 20, 000 Watch for any signs and symptoms of bleeding SKIN: Former x-ray pending Wrist x-ray pending Knee x-ray pending Cervical spine CT negative Pelvic x-ray pending Pressure ulcer prevention per facility protocol Specialty mattress as needed Treatment plan discussed with patient and family at the bedside Medications to be reconciled once obtained by patient and/or family and available to be reconciled in computer p.r.n. 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 Which of the following were discussed? Hospice Care - Yes / No Therapeutic options - Yes / No Advance Directives - Yes / No Other discussions - 2. Discussed with who? Patient and family members/ at the bedside 3. Voluntary nature of this service was explained to the patient? Yes / No 4. Amount of time spent - ___ more than 35 minutes ____ 5. Reviewed by Physician? (if this service was performed by NPP) Yes / No ATTESTATION BY PHYSICIAN I have seen and examined the patient. I reviewed the documentation, medical decision making, and treatment plan as noted by the mid-level provider above. I agree with the findings and plan of care. HERSON MCNALLY MD, KATARZYNA B APRN Aug 23, 2024 11:04
[2024-08-23] MEDS: 0.9%NACL 1000ML 1,000 ML IV SCH (11:07)
[2024-08-23] MEDS: morPHINE 2 MG SYG IVP PRN (11:15)
[2024-08-23] MEDS: INSULIN humuLIN R 100 UNIT/ML 3ML SQ SCH (11:27)
--- NOTE | 2024-08-23 12:03 | HMCIMG ---
PELVIS 1-2VWS HISTORY: Status post fall COMPARISON: 02/10/2016 TECHNIQUE: Frontal projection of the pelvis was obtained. FINDINGS: Large amount of fecal material is seen in the colon. Bilateral hip joint space narrowing is seen. Calcification is seen in the pelvis may be related to fibroid uterus. Surgical junior are seen in the right groin region unchanged. There is no acute displaced fracture or dislocation. Degenerative changes are seen. IMPRESSION: 1. Findings as described above.
--- NOTE | 2024-08-23 12:04 | HMCIMG ---
CHEST 1VW HISTORY: Status post fall COMPARISON: 07/08/2024 FINDINGS: A frontal projection of the chest was obtained. Mild bilateral pulmonary infiltrates are seen may be related to mild pulmonary vascular congestion with possible superimposed pneumonitis. Small left pleural effusion is seen. Poststernotomy changes are seen. The heart is enlarged. Degenerative changes of the thoracolumbar spine are present. Pacemaker is seen entering from the left. Aortic calcifications are seen. IMPRESSION: 1. Mild bilateral pulmonary infiltrates are seen may be related to mild pulmonary vascular congestion with possible superimposed pneumonitis.
--- NOTE | 2024-08-23 12:07 | HMCIMG ---
FOREARM 2VWS LT HISTORY: Status post fall COMPARISON: None TECHNIQUE: 2 images of left forearm were obtained. FINDINGS: Bony osteopenia is seen. Radiocarpal joint space narrowing is seen. There is no acute displaced fracture or dislocation. There is soft tissue swelling. Degenerative changes are seen. IMPRESSION: 1. Findings as described above.
[2024-08-23 12:14] LABS: INFLUENZA TYPE A Negative For Type A (NEGATIVE); INFLUENZA TYPE B Negative For Type B (NEGATIVE)
--- NOTE | 2024-08-23 12:15 | HMCIMG ---
WRIST 2VWS LT HISTORY: Status post fall COMPARISON: None TECHNIQUE: 2 images of left forearm were obtained. FINDINGS: Bony osteopenia is seen. Radiocarpal joint space narrowing is seen. There is no acute displaced fracture or dislocation. Degenerative changes are seen. IMPRESSION: 1. Findings as described above.
--- NOTE | 2024-08-23 12:44 | HMCIMG ---
KNEE 3 VW BILATERAL REASON: fall. COMPARISON: None TECHNIQUE: 4 images of bilateral knees were obtained. FINDINGS: The femorotibial joint space narrowing are seen. Surgical junior are seen at the medial portion of both knees. No acute displaced fracture or dislocation is seen. IMPRESSION: Findings as described above.
[2024-08-23 13:10] VITALS: BP 148/80; PULSE 87; RESP 16; TEMP 97.5
[2024-08-23 13:15] VITALS: O2SAT 93
[2024-08-23] MEDS ORDERED: CEFD300C3 PO (13:28)
[2024-08-23] MEDS ORDERED: MECL-302 PO (13:28)
[2024-08-23] MEDS ORDERED: TRAM50TA4 PO (13:28)
[2024-08-23] MEDS ORDERED: traMADol HCL 50 MG TABLET PO PRN (15:30)
[2024-08-23] MEDS ORDERED: ALBUTEROL INHALER 90MCG/INH IH PRN (15:30)
[2024-08-23] MEDS ORDERED: NON-FORMULARY MEDICATION 1 EACH (Clonazepam 0.5 MG) PO SCH (15:30)
[2024-08-23] MEDS: acetaMINOPHEN 325 MG TAB PO PRN (15:47)
[2024-08-23] MEDS: hydrALAZine 20MG/ML VIAL IV PRN (15:50)
[2024-08-23 16:00] VITALS: BP 180/82; PULSE 73; RESP 16; TEMP 98
--- NOTE | 2024-08-23 16:18 | HMCSR ---
APPROVED REPORT EXAM: Two-dimensional and M-mode echocardiogram with Doppler and color Doppler. INDICATION ICD: Congestive heart failure 2D Dimensions RVDd5.0 cmLVEF(%)56.6 (>50%)LVED Vol(simp.)63.0 mL IVSd1.1 (0.7-1.1cm)FS(%)29 %LVES Vol(simp.)37.0 mL LVDd3.9 (3.8-5.6cm)LA (2D)4.7 (1.6-4.0cm)LVEF(%, simp.)42 % PWd1.2 (0.7-1.1cm)Ao Root(2D)2.5 (2.0-3.7cm) LVDs2.8 (2.5-4.0cm)LVOT diam1.7 (1.8-2.4cm) IVC diam2.2 cm Deformation Strain Apical 4-15.0 % Apical 2-11.0 % Apical 3-13.0 % Global Strain-13.0 % M-Mode Dimensions EPSS0.8 cm LA (MM)4.3 (1.6-4.0cm) Ao Root(MM)2.7 (2.0-3.7cm) Aortic Valve AoV Vmax1.3 m/[place] GR6.3 mmHgLVOT Vmax1.0 m/s AoV VTI0.2 mAo Mean GR3.3 mmHgLVOT VTI0.15 m VU (VMAX)2.1 cm2AVA (VTI) 2.1 cm2 Mitral Valve MV E Rgeb053.0 cm/sDECEL Crnx286 msMR TSG768 cm2 MV A Vmax81.8 cm/sP 1/2 T51 ms E/A ratio2.0MVA (PHT)4.3 cm2 TDI E/E' Mjzsjl66.0E/E' [id number] Medial E' Peak V5.00 cm/sLateral E' Peak V8.00 cm/s Pulmonary Valve PV Vmax0.9 m/s Tricuspid Valve TR Vmax4.1 m/sRAP (EST) 15 qfOpGVAJ78.3 mmHg TR Peak GR74.3 mmHg Left Ventricle The left ventricle structure and function is normal. Interventricular septal flattening with diastole consistent with increased right ventricle pressure/volume. There is normal left ventricular wall thi ckness. LVEF is 45-50%. Stage III diastolic dysfunction. Right Ventricle The right ventricle is moderately dilated. Right ventricular systolic function is mildly reduced. Atria The left atrium is severely dilated. The right atrium is severely dilated. Aortic Valve Trileaflet aortic valve. Aortic valve sclerosis without stenosis. No aortic regurgitation is present. There is no aortic valvular stenosis. Mitral Valve Mitral valve leaflets appear normal. Moderate mitral annular calcification. Mitral regurgitation is m oderate. There is no mitral valve stenosis. Tricuspid Valve The tricuspid valve is normal in structure and function. Severe tricuspid regurgitation. Pulmonary hy pertension with estimated RVSP 80-90mmhg. Pulmonic Valve The pulmonary valve is normal in structure and function. There is mild to moderate valvular regurgita tion. Great Vessels The aortic root is normal in size. IVC is dilated and collapses <50% with inspiration consistent with an estimated right atrial pressure of 15mmHg. Pericardium The pericardium appears normal. No pericardial effusion. Other Information Quality : AdequateRhythm : NSR Conclusion LVEF is 45-50%. Interventricular septal flattening with diastole consistent with increased right ventricle pressure/v olume. Stage III diastolic dysfunction. Severe biatrial enlargement. Aortic valve sclerosis without stenosis. Moderate mitral annular calcification. Mitral regurgitation is moderate. Severe tricuspid regurgitation. Pulmonary hypertension with estimated RVSP 80-90mmhg.
[2024-08-23] MEDS: ondanSETRON 4MG INJ IV PRN (16:27)
--- NOTE | 2024-08-23 16:31 | NUR ---
NAUSEA Patient complaining of nausea, vomiting. Small amount of emesis in bag. HR 160s during epidsode. PRN zofran administered to patient. Family at bedside to reassure patient, as she is very anxious. Patient responded well within 10 minutes to zofran, HR decreasing, current HR 110
--- NOTE | 2024-08-23 16:36 | HMCIMG ---
US CAROTID DUPLEX HISTORY: Syncope COMPARISON: None TECHNIQUE: Duplex carotid arterial Doppler ultrasound study was performed. FINDINGS: The common, internal and external carotid arteries are visualized. The peak systolic velocities of right common carotid artery is 49 centimeters per second, right internal carotid artery is 90 centimeters per second, right external carotid artery is 68 centimeters per second, and right vertebral artery is 53 centimeters per second. Right internal carotid artery to right common carotid artery ratio is 1.. Right vertebral artery is seen with antegrade flow. The peak systolic velocities of left common carotid artery is 51 centimeters per second, left internal carotid artery is 101 centimeters per second, left external carotid artery is 47 centimeters per second, and left vertebral artery is 66 centimeters per second. Left internal carotid artery to left common carotid artery ratio is 2.0. Left vertebral artery is seen with antegrade flow. There are bilateral echogenic plaques. IMPRESSION: 1. No hemodynamically significant lesion is seen of either extracranial carotid artery system.
[2024-08-23 17:16] VITALS: BP 126/59
[2024-08-23 20:00] VITALS: BP 123/61; PULSE 91; RESP 20; TEMP 98.2
[2024-08-23 20:14] VITALS: O2SAT 92
[2024-08-23] MEDS: furoSEMIDE 40 MG TABLET PO SCH (21:04)
[2024-08-23] MEDS: FAMOTIDINE 20MG VIAL IV SCH (21:04)
[2024-08-23] MEDS: atorVAStatin 40 MG TABLET PO SCH (21:04)
[2024-08-23] MEDS: BENZONATATE 100 MG CAPSULE PO SCH (21:04)
[2024-08-23] MEDS: HEParin 5,000 UNIT VIAL SQ SCH (21:05)
[2024-08-23] MEDS: ZOLPidem TARTrate 5 MG TAB PO PRN (21:38)
[2024-08-24] VITALS (12 sets, daily range): BP systolic 110–141; BP diastolic 60–70; PULSE 79–98; RESP 16–18; TEMP 97.9–98.4; O2SAT 95–99
[2024-08-24 01:14] LABS: HEMOGLOBIN A1C 5.6 % (4.0-6.0)
[2024-08-24 04:37] LABS: BASOPHILS # (AUTO) 0.02 K/uL (0.00-0.20); BASOPHILS % (AUTO) 0.3 % (0.0-5.0); EOSINOPHILS % (AUTO) 1.6 % (0.0-8.0); HEMATOCRIT 36.1 % (36-48); IMMATURE GRANULOCYTE ABSOLUTE 0.02 K/uL (0-1); LYMPHOCYTES # (AUTO) 1.3 K/uL (1.0-4.8); LYMPHOCYTES % (AUTO) 20.5 % (21.0-51.0); MEAN CORPUSCULAR HEMOGLOBIN 30.1 pg (27.0-33.0); MEAN CORPUSCULAR VOLUME 91.2 fL (79-99); MONOCYTES # (AUTO) 0.6 K/uL (0.1-1.0); MONOCYTES % (AUTO) 8.9 % (3.0-13.0); NEUTROPHILS # (AUTO) 4.2 K/uL (1.8-7.7); NEUTROPHILS % (AUTO) 68.4 % (40.0-77.0); PLATELET COUNT (AUTO) 124 K/uL (130-400); RED BLOOD CELL COUNT(AUTO) 3.96 MIL/uL (4.00-5.50); RED CELL DISTRIBUTION WIDTH 15.5 % (11.0-15.5); WHITE BLOOD COUNT (AUTO) 6.2 K/uL (4.8-10.8)
[2024-08-24 04:52] LABS: ALBUMIN 3.2 g/dL (3.5-5.0); BILIRUBIN,TOTAL 2.3 mg/dL (0.2-1.0); CREATININE 0.8 mg/dL (0.5-1.0); MAGNESIUM 1.6 mg/dL (1.80-2.40); POTASSIUM 3.1 mmol/L (3.5-5.1); TOTAL PROTEIN, SERUM 7.4 g/dL (6.0-8.3)
[2024-08-24] MEDS: MAGNESIUM 2GM PREMIX 50ML 50 ML IV PRN (05:38)
[2024-08-24] MEDS: PoTASSium chl 10% ELIXIR 20MEQ 20 MEQ/15 ML UDCUP PO PRN (05:39)
--- NOTE | 2024-08-24 06:02 | PN ---
[facility] PROGRESS NOTE Date of Service: Aug 24, 2024 Time of Service: 05:54 SUBJECTIVE: [ ] admission date: 08/23/24 PCP: Cy: Sal Moncada Jr., MD 08/24/24 This is a 84 year old female presented in ED with chief complaints of fall and shortness of breaths. Trauma work up done: all imaging negative for fractures or dislocations. noted osteopenia. Reviewed labs elevated BNP stop IV fluids patient is currently on Lasix IV. Echo pending. The patient denies chest pain, dizziness or palpations. Environmental Program Manager consulted REVIEW OF SYSTEMS CONSTITUTIONAL: Denies fevers, chills, or night sweats. No unintentional weight loss reported. NEUROLOGICAL: Denies headache, amaurosis fugax, motor weakness, sensory deficit, vertigo/spinning sensation, gait abnormalities, or tremors. Complains of a headache ENT: No hearing loss, otalgia, otorrhea, rhinitis, rhinorrhea, hoarseness, or sore throat. CARDIOVASCULAR: Denies any exertional angina, dyspnea on exertion, orthopnea, paroxysmal nocturnal dyspnea, palpitations, life-threatening arrhythmias, claudication. PULMONARY: Denies any shortness of breath, cough, phlegm/sputum, hemoptysis, pleuritic chest pain. SLEEP: Denies morning headaches, daytime somnolence or napping. Denies difficulty falling asleep, staying asleep, waking from sleep. Denies knowledge of snoring. GASTROINTESTINAL: Denies any type of dysphagia to either liquids or solids. Denies nausea, vomiting, pyrosis, early satiety, abdominal pain, diarrhea, constipation, or changes in stool consistency or caliber. Denies coffee-ground emesis, hematemesis, hematochezia, or melanotic stools. GENITOURINARY: Denies frequency, urgency, nocturia, hematuria or incontinence (Storage/Irritative symptoms.) Low urinary stream, straining to void, urinary intermittency or hesitancy, splitting of the voiding stream, terminal dribbling. ENDOCRINOLOGIC: Denies polyuria, polydipsia, polyphagia or heat/cold intolerances. HEMATOLOGIC: Denies thrombophilia/previous clots, or coagulopathy/bleeding disorders. ONCOLOGIC: Denies personal history of malignancy. DERMATOLOGIC: Denies rashes or pruritus. PSYCHIATRIC: Denies any suicidal or homicidal ideation. Denies hallucinations. PHYSICAL EXAM GENERAL APPEARANCE: The patient is awake, alert, and oriented, in no acute cardiopulmonary distress. NEUROLOGICAL: Cranial nerves II-XII grossly intact. Motor is 5/5 in bilateral upper and lower extremities proximal to distal. No sensory deficits. HEENT: Face is symmetric. Pupils are equal and reactive. Extraocular movements are intact. NECK: Supple. No JVD. No thyromegaly. No submental, submandibular, pre- /postauricular, occipital or supraclavicular lymphadenopathy. CHEST: Normal chest expansion. No Telemetry. LUNGS: Absence of any rales, rhonchi or any wheezing. CARDIOVASCULAR: Regular. S1 and S2 normal. No appreciable rubs, murmurs or gallops. ABDOMEN: Soft, nontender, and nondistended. There is no rebound, voluntary guarding, or rigidity. : Deferred. No Sebastian. EXTREMITIES: Non-edematous and not cyanotic. No clubbing. Good capillary refill. SKIN: No skin breakdown. Vital Signs (last 8hr) Date Time Temp Pulse Resp B/P (MAP) Pulse Ox O2 Delivery O2 Flow Rate FiO2 08/24/24 04:00 98.4 86 16 141/70 96 Room Air 08/24/24 00:00 97.9 85 16 126/64 96 Room Air LABS: Laboratory: Test 08/24/24 05:14 08/24/24 04:27 08/23/24 15:49 08/23/24 11:33 Range/Units Whole Blood Glucose 83 70-110 MG/DL White Blood Count 6.2 4.8-10.8 K/uL Red Blood Count 3.96 L 4.00-5.50 MIL/uL Hemoglobin 11.9 L 12.0-16.0 g/dL Hematocrit 36.1 36-48 % Mean Corpuscular Volume 91.2 79-99 fL Mean Corpuscular Hemoglobin 30.1 27.0-33.0 pg Mean Corpuscular Hemoglobin Concent 33.0 32.0-36.0 g/dL Red Cell Distribution Width 15.5 11.0-15.5 % Platelet Count 124 L 130-400 K/uL Mean Platelet Volume 10.5 7.5-10.5 fL Immature Granulocyte % (Auto) 0.3 0-1 % Neutrophils (%) (Auto) 68.4 40.0-77.0 % Lymphocytes (%) (Auto) 20.5 L 21.0-51.0 % Monocytes (%) (Auto) 8.9 3.0-13.0 % Eosinophils (%) (Auto) 1.6 0.0-8.0 % Basophils (%) (Auto) 0.3 0.0-5.0 % Neutrophils # (Auto) 4.2 1.8-7.7 K/uL Lymphocytes # (Auto) 1.3 1.0-4.8 K/uL Monocytes # (Auto) 0.6 0.1-1.0 K/uL Eosinophils # (Auto) 0.10 0.00-0.70 K/uL Basophils # (Auto) 0.02 0.00-0.20 K/uL Absolute Immature Granulocyte (auto 0.02 0-1 K/uL Nucleated Red Blood Cells 0.0 0.0-0.19 % Sodium Level 137 136-145 mmol/L Potassium Level 3.1 L 3.5-5.1 mmol/L Chloride Level 100 L 101-111 mmol/L Carbon Dioxide Level 26 21-32 mmol/L Blood Urea Nitrogen 14 7-18 mg/dL Creatinine 0.8 0.5-1.0 mg/dL Glomerular Filtration Rate Calc 72 >90 mL/min Random Glucose 80 70-105 mg/dL Lactic Acid Level 0.9 0.8-2.5 mmol/L Total Calcium 8.7 8.5-10.1 mg/dL Magnesium Level 1.60 L 1.80-2.40 mg/dL Total Bilirubin 2.3 H 0.2-1.0 mg/dL Direct Bilirubin 1.0 H 0.0-0.3 mg/dL Aspartate Amino Transf (AST/SGOT) 52 H 10-37 U/L Alanine Aminotransferase (ALT/SGPT) 32 12-78 U/L Alkaline Phosphatase 128 50-136 U/L Ammonia 25 11-32 umol/L Total Creatine Kinase 272 #H 21-232 U/L Troponin I High Sensitivity 61.3 *H 4-50 ng/L B-Type Natriuretic Peptide 1530 H 0-100 pg/mL Total Protein 7.4 6.0-8.3 g/dL Albumin 3.2 L 3.5-5.0 g/dL Procalcitonin < 0.05 L 0.05-0.5 ng/mL Bedside Glucose Comment Notified Nurse Influenza Type A Antigen Negative For Type A NEGATIVE Influenza Type B Antigen Negative For Type B NEGATIVE Test 08/23/24 05:59 08/23/24 04:50 Range/Units Urine Color LIGHT-YELLOW YELLOW Urine Appearance CLOUDY H CLEAR Urine pH 8.0 5.0-8.0 Urine Specific [place] 1.006 1.001-1.031 Urine Protein NEGATIVE NEGATIVE mg/dL Urine Glucose (UA) NEGATIVE NEGATIVE mg/dL Urine Ketones NEGATIVE NEGATIVE mg/dL Urine Occult Blood SMALL H NEGATIVE Urine Nitrate NEGATIVE NEGATIVE Urine Bilirubin NEGATIVE NEGATIVE mg/dL Urine Urobilinogen 2.0 H 0.2-1.0 mg/dL Urine Leukocyte Esterase NEGATIVE NEGATIVE Yoshi/uL Urine RBC 6-10 H 0-1 /HPF Urine WBC 0-1 0-1 /HPF Urine Squamous Epithelial Cells RARE 0-2 /HPF Urine Bacteria RARE None Seen /HPF Hemoglobin A1c 5.6 4.0-6.0 % Estimated Average Glucose (eAG) 114 70-126 mg/dL Current Medications Medications (Trade) Dose Ordered Sig/Adal Route PRN Reason Start Time Stop Time Status Last Admin Dose Admin Acetaminophen (TYLenol 325MG TAB) 650 mg Q4H PRN PO MILD PAIN (1-3) 08/23/24 09:30 08/23/24 09:10 DC Acetaminophen (TYLenol 325MG TAB) 650 mg Q6H PRN PO MILD PAIN (1-3) 08/23/24 09:30 09/22/24 09:29 08/23/24 15:47 650 MG Acetaminophen (TYLenol 325MG TAB) 650 mg Q6H PRN PO TEMPERATURE GREATER THAN 101.5 08/23/24 09:30 09/22/24 09:29 Al Hydroxide/Mg Hydroxide (MAALox PLUS 30ML) 30 ml Q6H PRN PO INDIGESTION 08/23/24 09:30 09/22/24 09:29 Albuterol Sulfate (Ventolin Hfa) I INHALTION Q6H PRN IH SHORTNESS OF BREATH/WHEEZING 08/23/24 15:30 09/22/24 15:29 Atorvastatin Calcium (LIPItor 40MG) 40 mg HS PO 08/23/24 21:00 09/22/24 20:59 08/23/24 21:04 40 MG Benzonatate (Tessalon 100mg Caps) 100 mg TID PO 08/23/24 21:00 09/22/24 20:59 08/23/24 21:04 100 MG Clonazepam (KLONopin 1MG TAB) 0.5 mg HS PRN PO ANXIETY/AGITATION 08/23/24 19:00 09/22/24 18:59 Dextrose (D50w) 50 ml AD PRN IV HYPOGLYCEMIA PROTOCOL 08/23/24 09:30 09/22/24 09:29 Diltiazem HCl (CARDIzem 120MG CD) 120 mg DAILY PO 08/24/24 09:00 09/23/24 08:59 Diphenhydramine HCl (BENAdryl INJ) 25 mg Q6H PRN IV SEVERE ITCHING/RASH 08/23/24 09:30 09/22/24 09:29 Famotidine (Pepcid 20mg Vial) 20 mg BID PRN IV NAUSEA/VOMITING 08/23/24 09:30 08/23/24 09:10 DC Famotidine (Pepcid 20mg Vial) 20 mg Q24H IV 08/23/24 21:00 09/22/24 20:59 08/23/24 21:04 20 MG Furosemide (LASix 40MG TAB) 40 mg BID PO 08/23/24 21:00 09/22/24 20:59 08/23/24 21:04 40 MG Glucagon (Glucagon 1mg Kit) 1 mg AD PRN IM HYPOGLYCEMIA PROTOCOL 08/23/24 09:30 09/22/24 09:29 Guaifenesin/ Dextromethorphan (RobiTUSSin DM 200/20MG 10ML) 10 ml Q4H PRN PO COUGH 08/23/24 09:30 09/22/24 09:29 Heparin Sodium (Porcine) (HEParin 5,000 UNIT VIAL) 5,000 unit BID SQ 08/23/24 21:00 09/22/24 20:59 08/23/24 21:05 5,000 UNIT Hydralazine HCl (APRESOLine 20MG INJ) 10 mg Q6H PRN IV For:SBP above 160;DBP above 90 08/23/24 09:30 09/22/24 09:29 08/23/24 15:50 10 MG Insulin Human Regular (humuLIN R 100 UNIT/ML 3ML) INSULIN SLIDING SCAL... ACHS SQ 08/23/24 11:30 09/22/24 11:29 Ketorolac Tromethamine (toRADol) 15 mg Q8H PRN IV MODERATE PAIN (4-6) 08/23/24 09:30 08/23/24 09:16 DC Lactulose (Constulose 20gm/ 30ml Udcup) 20 gm BID PRN PO CONSTIPATION 08/23/24 09:30 09/22/24 09:29 Lisinopril (Prinivil 5mg) 5 mg DAILY PO 08/24/24 09:00 09/23/24 08:59 Magnesium Sulfate 50 ml @ 0 mls/hr PROTOCOL PRN IV other 08/23/24 09:30 09/22/24 09:29 08/24/24 05:38 25 MLS/HR Meclizine HCl (ANTIvert 25 mg) 25 mg DAILY PO 08/24/24 09:00 09/23/24 08:59 Miscellaneous Medication (Clonazepam ) 0.5 mg AD PO 08/23/24 15:30 08/23/24 19:00 DC Morphine Sulfate (morPHINE 2MG SYG) 1 mg Q4H PRN IVP SEVERE PAIN (7-10) IF NPO 08/23/24 09:30 08/30/24 09:29 08/23/24 11:15 1 MG Nitroglycerin (Nitrostat) 0.4 mg PROTOCOL PRN SL CHEST PAIN 08/23/24 09:30 09/22/24 09:29 Ondansetron HCl (zoFRAN 4MG INJ) 4 mg Q6H PRN IV NAUSEA/VOMITING 08/23/24 09:30 09/22/24 09:29 08/23/24 16:27 4 MG Oxycodone/ Acetaminophen (perCOCET) 1 tab Q6H PRN PO SEVERE PAIN (7-10) 08/23/24 09:30 08/30/24 09:29 Pharmacy Profile Note (Pharmacy Communication) PLEASE CLARIFY CLONAZEPAM Q30MIN MISC 08/23/24 16:00 08/23/24 19:00 DC Potassium Chloride 100 ml @ 100 mls/hr AD PRN IV POTASSIUM PROTOCOL 08/23/24 09:30 09/22/24 09:29 Potassium Chloride (K-Dur/Klor-Con 20meq) 10 meq AD PRN PO POTASSIUM PROTOCOL 08/23/24 09:30 09/22/24 09:29 Potassium Chloride (K-Dur/Klor-Con 20meq) 40 meq DAILY PO 08/24/24 09:00 09/23/24 08:59 Potassium Chloride (KCl 10% Elixir 20meq/15ml) 10 meq AD PRN PO POTASSIUM PROTOCOL 08/23/24 09:30 09/22/24 09:29 08/24/24 05:39 10 MEQ Sertraline HCl (ZOloft 50 mg tab) 100 mg DAILY PO 08/24/24 09:00 09/23/24 08:59 Sodium Chloride 1,000 ml @ 70 mls/hr [id number] IV 08/23/24 09:30 09/22/24 09:29 08/23/24 23:53 70 MLS/HR Tramadol HCl (UltRAM) 50 mg Q4HPRN PRN PO P 08/23/24 15:30 08/28/24 15:29 Zolpidem Tartrate (AmbIEN) 5 mg HS PRN PO INSOMNIA 08/23/24 09:30 09/22/24 09:29 Zolpidem Tartrate (AmbIEN) 10 mg HSPRN PRN PO INSOMNIA/SLEEP 08/23/24 15:30 09/22/24 15:29 08/23/24 21:38 10 MG DIAGNOSTICS / RADIOLOGY: [ ] ASSESSMENT: [ Acute hypoxic respiratory failure POA NSTEMI S/p fall POA AFib controlled on Eliquis POA Multifactorial anemia POA hypercoagulable state secondary to afib on ELiQUIS Acute on chronic diastolic CHF EF 30 to 35% 2D echo 11/17/[address]A [address] fibrosis per CT abdomen/pelvis Bilateral pleural effusion per CT abdomen/pelvis Cirrhotic liver per CT abdomen/pelvis Mild diverticulosis per CT abdomen/pelvis Electrolyte imbalance hypokalemia K3.4 Debility Medical noncompliance Uncontrolled hypertension Hyperlipidemia History of Myocardial infarction Coronary Artery Disease s/p pacemaker/AICD Insomnia Anxiety Vertigo History of Cholecystectomy History of appendectomy] PLAN: Admit: Medical-surgical floor condition: Guarded Status: Full code IVF: Hep-Lock fluids BNP13 50 fluid 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 Test: 2D echo to evaluate LV function noted stage III diastolic dysfunction with EF 45-50% fluid restriction 1.5 liters strict I/O and daily weight. resume Eliquis Continue with Cardizem 120 mg p.o. daily for heart rate control Continue with diuretics Imaging on admission noted Labs cbc, cmp, mag+ Replace electrolytes as needed as per protocol to keep potassium above 4.0 magnesium 2.0. Fall precautions :PT services to eval and treat Decubitus precautions aggressive offloading reposition self. Supportive measures: DVT ppx, GI ppx all questions answered Supervising MD: Dr. Mcnally c/d This document was generated in part using voice recognition software, occasional wrong word or sound alike substitutions may have occurred due to the inherent limitations of voice recognition software. Read the chart carefully and recognize using context, where the substitutions have occurred. Although every effort was made to edit the content, ob gyn and typing errors may occur ATTESTATION BY PHYSICIAN I have seen and examined the patient. I reviewed the documentation, medical decision making, and treatment plan as noted by the mid-level provider above. I agree with the findings and plan of care. HERSON MCNALLY MD, ELIZABETH NP Aug 24, 2024 06:02
[2024-08-24] MEDS: SERTraline HCL 50 MG TABLET PO SCH (08:43)
[2024-08-24] MEDS: LISINOPRIL 5 MG TABLET PO SCH (08:44)
[2024-08-24] MEDS: dilTIAZem 120MG SR CAP PO SCH (08:46)
[2024-08-24] MEDS: mecliZINE HCL 25 MG TABLET PO SCH (08:46)
[2024-08-24] MEDS: PoTASSium chloRIDE 20MEQ ER 20 MEQ ERTAB PO SCH (09:00)
[2024-08-24] MEDS ORDERED: ALBUTEROL 0.083% 2.5 MG/3 ML INH IH PRN (09:00)
--- NOTE | 2024-08-24 11:14 | CONS ---
[facility] CARDIOLOGY CONSULTATION NOTE Date Patient Seen: Aug 24, 2024 Time of Visit: 11:02 Reason for Consultation: elevated troponin, fall History of Present Illness: Patient is an 84-year-old Luxembourgish-speaking female with a past medical history of diastolic and systolic congestive heart failure (LVEF 30 to 35%, RV moderate to severe dilation, left atrium severely dilated, severe mitral regurgitation, severe tricuspid regurgitation, RVSP estimated 80 mmHg, calcified mitral valve with MVA 0.9 cm with mean gradient of 7 mmHg), pulmonary hypertension, carotid artery disease (mild plaque bilateral) paroxysmal atrial fibrillation status post Maze procedure and left atrial appendage ligation at time of her mitral valve repair in 2015, DCCV in 2018, coronary artery disease with history of 3V coronary bypass grafting in 2010 (patent grafts by [facility] 2014), history of brachial vein thrombosis (2010), hypertension, history of bradycardia 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 She is established at the [facility] with Dr. Parker, last seen in March 2024. It was discussed at that time due to reduction in her left ventricular systolic function that she proceed with right and left heart catheterization for further evaluation however she refused. She presented to the emergency department at [facility] yesterday after sustaining a fall. Patient reports she was getting up in the morning to get dressed around 2 to 3 AM (normal to for patient) when she turned, tripped on something in her room and fell. She denies any loss of consciousness. She does report dizziness upon standing fairly consistently. She also takes meclizine. She reports no changes in her symptomatology over the past few weeks. Of note, she was recently restarted on tramadol 50 mg 1 week ago which she takes in the evening at approximately 7 to 7:30 PM. Her ROS is also positive for dark urine output and increased malodor. Medication adverse effects: multaq : vomiting sotalol - bradycardia Social History: lives with spouse Current Meds: Current Medications Medications Dose Ordered Sig/Adal Start Time Stop Time Status Last Admin Insulin Human Regular INSULIN SLIDING SCAL... ACHS 08/23/24 11:30 09/22/24 11:29 Dextrose 50 ml AD PRN 08/23/24 09:30 09/22/24 09:29 Glucagon 1 mg AD PRN 08/23/24 09:30 09/22/24 09:29 Potassium Chloride 100 ml @ 100 mls/hr AD PRN 08/23/24 09:30 09/22/24 09:29 Potassium Chloride 10 meq AD PRN 08/23/24 09:30 09/22/24 09:29 08/24/24 09:06 Potassium Chloride 10 meq AD PRN 08/23/24 09:30 09/22/24 09:29 Diphenhydramine HCl 25 mg Q6H PRN 08/23/24 09:30 09/22/24 09:29 Acetaminophen 650 mg Q6H PRN 08/23/24 09:30 09/22/24 09:29 Ondansetron HCl 4 mg Q6H PRN 08/23/24 09:30 09/22/24 09:29 08/23/24 16:27 Zolpidem Tartrate 5 mg HS PRN 08/23/24 09:30 09/22/24 09:29 Al Hydroxide/Mg Hydroxide 30 ml Q6H PRN 08/23/24 09:30 09/22/24 09:29 Lactulose 20 gm BID PRN 08/23/24 09:30 09/22/24 09:29 Nitroglycerin 0.4 mg PROTOCOL PRN 08/23/24 09:30 09/22/24 09:29 Guaifenesin/ Dextromethorphan 10 ml Q4H PRN 08/23/24 09:30 09/22/24 09:29 Heparin Sodium (Porcine) 5,000 unit BID 08/23/24 21:00 09/22/24 20:59 08/24/24 09:03 Acetaminophen 650 mg Q6H PRN 08/23/24 09:30 09/22/24 09:29 08/23/24 15:47 Oxycodone/ Acetaminophen 1 tab Q6H PRN 08/23/24 09:30 08/30/24 09:29 Morphine Sulfate 1 mg Q4H PRN 08/23/24 09:30 08/30/24 09:29 08/23/24 11:15 Hydralazine HCl 10 mg Q6H PRN 08/23/24 09:30 09/22/24 09:29 08/23/24 15:50 Famotidine 20 mg Q24H 08/23/24 21:00 09/22/24 20:59 08/23/24 21:04 Potassium Chloride 40 meq DAILY 08/24/24 09:00 09/23/24 08:59 Atorvastatin Calcium 40 mg HS 08/23/24 21:00 09/22/24 20:59 08/23/24 21:04 Benzonatate 100 mg TID 08/23/24 21:00 09/22/24 20:59 08/24/24 08:45 Diltiazem HCl 120 mg DAILY 08/24/24 09:00 09/23/24 08:59 08/24/24 08:46 Furosemide 40 mg BID 08/23/24 21:00 09/22/24 20:59 08/24/24 08:45 Lisinopril 5 mg DAILY 08/24/24 09:00 09/23/24 08:59 08/24/24 08:44 Meclizine HCl 25 mg DAILY 08/24/24 09:00 09/23/24 08:59 08/24/24 08:46 Tramadol HCl 50 mg Q4HPRN PRN 08/23/24 15:30 08/28/24 15:29 Sertraline HCl 100 mg DAILY 08/24/24 09:00 09/23/24 08:59 08/24/24 08:43 Zolpidem Tartrate 10 mg HSPRN PRN 08/23/24 15:30 09/22/24 15:29 08/23/24 21:38 Clonazepam 0.5 mg HS PRN 08/23/24 19:00 09/22/24 18:59 Magnesium Sulfate 50 ml @ 0 mls/hr PROTOCOL 08/24/24 06:00 09/23/24 05:59 Albuterol Sulfate 2.5 mg Q6H PRN 08/24/24 09:00 09/23/24 08:29 Review of Systems: reports dizziness, lightheadedness, impaired balance, urine malodor, urine discoloration Physical Examination: GENERAL: [No acute distress, frail elderly female.] HEAD: [Normal with no signs of head trauma.] NECK: [Supple Normal carotid upstrokes without bruits.] LUNGS: [Clear breath sounds bilaterally. on room air. No wheezes, or rhonchi.] HEART: [Normal rate and rhythm. left upper chest pacemaker pocket nontender, 2/6 systolic murmur llsb.] VASC: [Peripheral pulses +2 bilaterally.] ABD: [soft, nontender, nondistended.] EXT: [No clubbing, cyanosis or edema.] SKIN: [warm, dry] NEURO: [Awake, alert, and oriented x3. No focal sensory or strength deficits noted.] Vital Signs (last 8hr) Date Time Temp Pulse Resp B/P (MAP) Pulse Ox O2 Delivery O2 Flow Rate FiO2 08/24/24 10:50 81 18 N/A Room Air 21 08/24/24 08:55 95 Room Air* 0 21 08/24/24 08:02 98.2 85 17 110/60 95 Room Air 08/24/24 04:00 98.4 86 16 141/70 96 Room Air Laboratory: [ ] Hematology Labs: Test 08/24/24 04:27 Range/Units White Blood Count 6.2 4.8-10.8 K/uL Red Blood Count 3.96 L 4.00-5.50 MIL/uL Hemoglobin 11.9 L 12.0-16.0 g/dL Hematocrit 36.1 36-48 % Mean Corpuscular Volume 91.2 79-99 fL Mean Corpuscular Hemoglobin 30.1 27.0-33.0 pg Mean Corpuscular Hemoglobin Concent 33.0 32.0-36.0 g/dL Red Cell Distribution Width 15.5 11.0-15.5 % Platelet Count 124 L 130-400 K/uL Mean Platelet Volume 10.5 7.5-10.5 fL Immature Granulocyte % (Auto) 0.3 0-1 % Neutrophils (%) (Auto) 68.4 40.0-77.0 % Lymphocytes (%) (Auto) 20.5 L 21.0-51.0 % Monocytes (%) (Auto) 8.9 3.0-13.0 % Eosinophils (%) (Auto) 1.6 0.0-8.0 % Basophils (%) (Auto) 0.3 0.0-5.0 % Neutrophils # (Auto) 4.2 1.8-7.7 K/uL Lymphocytes # (Auto) 1.3 1.0-4.8 K/uL Monocytes # (Auto) 0.6 0.1-1.0 K/uL Eosinophils # (Auto) 0.10 0.00-0.70 K/uL Basophils # (Auto) 0.02 0.00-0.20 K/uL Absolute Immature Granulocyte (auto 0.02 0-1 K/uL Nucleated Red Blood Cells 0.0 0.0-0.19 % Chemistry Labs: Test 08/24/24 05:14 08/24/24 04:27 08/23/24 15:49 08/23/24 04:50 Range/Units Whole Blood Glucose 83 70-110 MG/DL Sodium Level 137 136-145 mmol/L Potassium Level 3.1 L 3.5-5.1 mmol/L Chloride Level 100 L 101-111 mmol/L Carbon Dioxide Level 26 21-32 mmol/L Blood Urea Nitrogen 14 7-18 mg/dL Creatinine 0.8 0.5-1.0 mg/dL Glomerular Filtration Rate Calc 72 >90 mL/min Random Glucose 80 70-105 mg/dL Lactic Acid Level 0.9 0.8-2.5 mmol/L Total Calcium 8.7 8.5-10.1 mg/dL Magnesium Level 1.60 L 1.80-2.40 mg/dL Total Bilirubin 2.3 H 0.2-1.0 mg/dL Direct Bilirubin 1.0 H 0.0-0.3 mg/dL Aspartate Amino Transf (AST/SGOT) 52 H 10-37 U/L Alanine Aminotransferase (ALT/SGPT) 32 12-78 U/L Alkaline Phosphatase 128 50-136 U/L Ammonia 25 11-32 umol/L Total Creatine Kinase 272 #H 21-232 U/L Troponin I High Sensitivity 61.3 *H 4-50 ng/L B-Type Natriuretic Peptide 1530 H 0-100 pg/mL Total Protein 7.4 6.0-8.3 g/dL Albumin 3.2 L 3.5-5.0 g/dL Procalcitonin < 0.05 L 0.05-0.5 ng/mL Bedside Glucose Comment Notified Nurse Hemoglobin A1c 5.6 4.0-6.0 % Estimated Average Glucose (eAG) 114 70-126 mg/dL Assessment: Elevated troponin Ground-level fall Possible orthostatic hypotension Hypomagnesemia Hypokalemia History of bradycardia status post [employer] permanent pacemaker implantation, last interrogation February 2020 for Coronary disease with history of four-vessel coronary bypass grafting Chronic systolic congestive heart failure with a known LVEF of 30 to 35% Paroxysmal atrial fibrillation with history of Maze procedure, left atrial appendage ligation and history of DCCV History of mitral valve repair with severe mitral regurgitation and severe tricuspid regurgitation by echocardiogram in 2023. Dysuria Plan: We will obtain orthostatic vital signs Will obtain urinalysis Will interrogate her pacemaker Advised discontinuation of the tramadol at this time Replete electrolytes K and Mg MIKE FITCH DO Aug 24, 2024 11:14
--- NOTE | 2024-08-24 12:21 | NUR ---
DEVICE INTERROGATION Kar[employer] called - Representative Janes Ortiz to be contacted per customer service Pending callback and/or cash applications representative visit Addendum: 08/24/24 at 1617 by LISA MIX RN RN Call back from cash applications representative. States the rep. will come tomorrow to interrogate the device.
[2024-08-24] MEDS: clonazePAM 1MG TAB PO PRN (14:55)
--- NOTE | 2024-08-24 17:18 | NUR ---
INITIAL/DCP HOME Met w pt and spouse this afternoon to discuss dcp. Pt lives at home w her Jose R Watkins and son Jon [phone]. P[address] Jason Huang. She is independent w ambulation and ADLs. She mentions that her son Jon is her provider 14hrs/week. She owns a walker. Transportation is provided by her son. discharge goal is to return home. Addendum: 08/24/24 at 1721 by ISAAC BRYANT CM Amended: Links added.
[2024-08-24] MEDS: APIXaban 2.5 MG TABLET PO SCH (20:37)
[2024-08-25] VITALS (11 sets, daily range): BP systolic 103–131; BP diastolic 54–71; PULSE 74–99; RESP 18–20; TEMP 97.6–97.9; O2SAT 97–98
[2024-08-25 06:52] LABS: BASOPHILS # (AUTO) 0.03 K/uL (0.00-0.20); BASOPHILS % (AUTO) 0.5 % (0.0-5.0); EOSINOPHILS # (AUTO) 0.38 K/uL (0.00-0.70); EOSINOPHILS % (AUTO) 6.1 % (0.0-8.0); HEMATOCRIT 35.4 % (36-48); IMMATURE GRANULOCYTE ABSOLUTE 0.02 K/uL (0-1); LYMPHOCYTES # (AUTO) 1.9 K/uL (1.0-4.8); LYMPHOCYTES % (AUTO) 30.7 % (21.0-51.0); MEAN CORPUSCULAR HGB CONC 33.1 g/dL (32.0-36.0); MEAN CORPUSCULAR VOLUME 90.8 fL (79-99); MONOCYTES # (AUTO) 0.8 K/uL (0.1-1.0); MONOCYTES % (AUTO) 12.4 % (3.0-13.0); NEUTROPHILS # (AUTO) 3.1 K/uL (1.8-7.7); PLATELET COUNT (AUTO) 129 K/uL (130-400); RED CELL DISTRIBUTION WIDTH 15.4 % (11.0-15.5); WHITE BLOOD COUNT (AUTO) 6.2 K/uL (4.8-10.8)
[2024-08-25 07:09] LABS: ALBUMIN 3.1 g/dL (3.5-5.0); BILIRUBIN,TOTAL 1.8 mg/dL (0.2-1.0); CREATININE 0.9 mg/dL (0.5-1.0); MAGNESIUM 1.9 mg/dL (1.80-2.40); POTASSIUM 3.2 mmol/L (3.5-5.1); TOTAL PROTEIN, SERUM 7.4 g/dL (6.0-8.3)
--- NOTE | 2024-08-25 09:36 | PN ---
[facility] CARDIOLOGY PROGRESS NOTE Date Patient Seen: Aug 25, 2024 Time of Visit: 09:18 Interval History: This is an 84-year-old Latin-Eritrean female, patient of Dr. Avery Parker with a past medical history of combined systolic and diastolic congestive heart failure (LVEF 30 to 35%, RV moderate to severe dilation, left atrium severely dilated, severe mitral regurgitation, severe tricuspid regurgitation, RVSP estimated 80 mmHg, calcified mitral valve with MVA 0.9 cm with mean gradient of 7 mmHg), pulmonary hypertension, carotid artery disease (mild plaque bilateral) paroxysmal atrial fibrillation status post Maze procedure and left atrial appendage ligation at time of her mitral valve repair in 2015, DCCV in 2018, coronary artery disease with history of 3V coronary bypass grafting in 2010 (patent grafts by [facility] 2014), history of brachial vein thrombosis (2010), hypertension, 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 During her prior visit with Dr. Avery Parker March 2024, it was discussed that due to reduction in her left ventricular systolic function that she proceed with right and left heart catheterization for further evaluation however she refused. She presented to the emergency department on 08/23/2024 after sustaining a fall. Patient reported she was getting up in the morning to get dressed around 2 to 3 AM (normal to for patient) when she turned, tripped on something in her room and fell. She denies any loss of consciousness. She does report dizziness upon standing fairly consistently. She also takes meclizine. She reports no changes in her symptomatology over the past few weeks. Of note, she was recently restarted on tramadol 50 mg 1 week ago which she takes in the evening at approximately 7 to 7:30 PM. She did report dark urine and malodorous urine. Her urinalysis was cloudy but no significant leukocytosis or WBCs were noted. Labs were remarkable for a troponin of 32 and 61 on repeat. BNP was 1530. Her EKG demonstrated a paced rhythm with a heart rate of 85 beats per minute. Orthostatic vital signs on admission demonstrated a supine blood pressure 111/65 with pulse of 85, sitting blood pressure 121/64 with pulse of 86 and standing blood pressure 119/66 with pulse of 84. She offers no complaints this morning including orthopnea or PND. Physical Examination: GENERAL: No acute distress. HEAD: Small scalp hematoma to the right parietal area EYES: PERRLA, EOMI, conjunctiva and sclera normal. NECK: Supple without JVD. There is no tenderness, lymphadenopathy, or masses. No thyromegaly. Normal carotid upstrokes without bruits. LUNGS: Clear breath sounds bilaterally. No audible wheezing or rhonchi. HEART: Normal rate and rhythm. Normal S1 and S2 there is a 2/6 early peaking systolic ejection murmur at the right upper sternal border, a 2/6 holosystolic murmur at the left lower sternal border and apex. VASC: Peripheral pulses +1 bilaterally. Chronic redness to the lower extremities right greater than left EXT: No clubbing, cyanosis or edema. NEURO: Awake, alert, and oriented x3. No focal neurological deficits noted. Current medications include: Atorvastatin 40 mg p.o. q.h.s., apixaban 2.5 mg p.o. b.i.d., diltiazem ER 120 mg daily, furosemide 40 mg p.o. b.i.d., lisinopril 5 mg p.o. daily, meclizine 25 mg p.o. daily, and other noncardiac medications as needed. Laboratory: Hematology Labs: Test 08/25/24 06:32 Range/Units White Blood Count 6.2 4.8-10.8 K/uL Red Blood Count 3.90 L 4.00-5.50 MIL/uL Hemoglobin 11.7 L 12.0-16.0 g/dL Hematocrit 35.4 L 36-48 % Mean Corpuscular Volume 90.8 79-99 fL Mean Corpuscular Hemoglobin 30.0 27.0-33.0 pg Mean Corpuscular Hemoglobin Concent 33.1 32.0-36.0 g/dL Red Cell Distribution Width 15.4 11.0-15.5 % Platelet Count 129 L 130-400 K/uL Mean Platelet Volume 12.0 H 7.5-10.5 fL Immature Granulocyte % (Auto) 0.3 0-1 % Neutrophils (%) (Auto) 50.0 40.0-77.0 % Lymphocytes (%) (Auto) 30.7 21.0-51.0 % Monocytes (%) (Auto) 12.4 3.0-13.0 % Eosinophils (%) (Auto) 6.1 0.0-8.0 % Basophils (%) (Auto) 0.5 0.0-5.0 % Neutrophils # (Auto) 3.1 1.8-7.7 K/uL Lymphocytes # (Auto) 1.9 1.0-4.8 K/uL Monocytes # (Auto) 0.8 0.1-1.0 K/uL Eosinophils # (Auto) 0.38 0.00-0.70 K/uL Basophils # (Auto) 0.03 0.00-0.20 K/uL Absolute Immature Granulocyte (auto 0.02 0-1 K/uL Nucleated Red Blood Cells 0.0 0.0-0.19 % Chemistry Labs: Test 08/25/24 06:32 08/25/24 05:11 08/24/24 04:27 08/23/24 15:49 Range/Units Sodium Level 141 136-145 mmol/L Potassium Level 3.2 L 3.5-5.1 mmol/L Chloride Level 103 101-111 mmol/L Carbon Dioxide Level 29 21-32 mmol/L Blood Urea Nitrogen 15 7-18 mg/dL Creatinine 0.9 0.5-1.0 mg/dL Glomerular Filtration Rate Calc 63 >90 mL/min Random Glucose 85 70-105 mg/dL Total Calcium 8.3 L 8.5-10.1 mg/dL Magnesium Level 1.90 1.80-2.40 mg/dL Total Bilirubin 1.8 H 0.2-1.0 mg/dL Aspartate Amino Transf (AST/SGOT) 50 H 10-37 U/L Alanine Aminotransferase (ALT/SGPT) 29 12-78 U/L Alkaline Phosphatase 122 50-136 U/L Total Protein 7.4 6.0-8.3 g/dL Albumin 3.1 L 3.5-5.0 g/dL Whole Blood Glucose 91 70-110 MG/DL Lactic Acid Level 0.9 0.8-2.5 mmol/L Direct Bilirubin 1.0 H 0.0-0.3 mg/dL Ammonia 25 11-32 umol/L Total Creatine Kinase 272 #H 21-232 U/L Troponin I High Sensitivity 61.3 *H 4-50 ng/L B-Type Natriuretic Peptide 1530 H 0-100 pg/mL Procalcitonin < 0.05 L 0.05-0.5 ng/mL Bedside Glucose Comment Notified Nurse Diagnostics / Radiology: 2D echocardiogram 08/24/2024: Conclusion LVEF is 45-50%. Interventricular septal flattening with diastole consistent with increased right ventricle pressure/volume. Stage III diastolic dysfunction. Severe biatrial enlargement. Aortic valve sclerosis without stenosis. Moderate mitral annular calcification. Mitral regurgitation is moderate. Severe tricuspid regurgitation. Pulmonary hypertension with estimated RVSP 80-90mmhg. 08/23/2024: Impression and Plan: Status post ground level fall without loss of consciousness: -no evidence of acute fracture on imaging studies done on admission -no evidence of orthostatic hypotension -may be related to drug therapy including tramadol, Ambien and anxiolytic therapy -consider withdrawal of tramadol which was recently started within about 1-1-1/2 weeks ago Hypokalemia with potassium of 3.2: -supplement potassium to achieve potassium of 4.0 Elevated troponin without evidence of an acute coronary syndrome: -she will continue with current medical therapy including long-term anticoagulation Paroxysmal atrial fibrillation with history of Maze procedure, left atrial appendage ligation and history of direct current cardioversion: Status post prior permanent pacemaker placement with a [employer] device: -pacemaker interrogation has been requested and is pending today -telemetry has demonstrated ventricular paced rhythm with a heart rate of 85 beats per minute and no arrhythmias thus far Chronic combined systolic and diastolic congestive heart failure: Ischemic cardiomyopathy with an LVEF of 30-35% by prior assessment, improving to an LVEF of 45-50% by follow-up 2D echocardiogram 08/24/2024: -continue current diuretic therapy, continue LLOYD inhibitor therapy -consider transitioning carvedilol to beta-kisha therapy now that she has a permanent pacemaker in place History of mitral valve repair and severe mitral regurgitation, severe tricuspid regurgitation: -continue efforts at maintaining an euvolemic status and blood pressure control Comorbidities: History of bradycardia status post [employer] permanent pacemaker implantation, last interrogation February 2020 for Coronary disease with history of four-vessel coronary bypass grafting Chronic systolic congestive heart failure with a known LVEF of 30 to 35% Paroxysmal atrial fibrillation with history of Maze procedure, left atrial appendage ligation and history of DCCV PHYSICIAN ATTESTATION OF PHYSICIAN GLASSWORKER DOCUMENTATION: I attest that I was physically present for the sethi portions of the service and evaluated the patient with the Physician Spar Machine Operator Helper, and I reviewed and discussed the case with the Physician Spar Machine Operator Helper and made modifications to the Physician Spar Machine Operator Helper's findings and plans of care as documented above RADHA TAYLOR Aug 25, 2024 09:36 RAMON ABDI MD Aug 25, 2024 17:35
--- NOTE | 2024-08-25 11:37 | PN ---
[facility] PROGRESS NOTE Date of Service: Aug 25, 2024 Time of Service: 11:[address] Mcnally SUBJECTIVE: [ ] admission date: 08/23/24 PCP: Cy: Sal Moncada Jr., MD 08/24/24 This is a 84 year old female presented in ED with chief complaints of fall and shortness of breaths. Trauma work up done: all imaging negative for fractures or dislocations. noted osteopenia. Reviewed labs elevated BNP stop IV fluids patient is currently on Lasix IV. Echo pending. The patient denies chest pain, dizziness or palpations. Continuous Vulcanizing Machine Operator consulted 08/25 patient was seen by nurse practitioner and physician during rounding in room 302. Patient's 2D echo showed 30 to 35% stage III diastolic dysfunction. Ultrasound carotid negative. Patient's pacemaker has been interrogated today. Orthostatic vital signs negative. Chest x-ray showed pneumonitis. Knee x-ray negative. Cervical spine CT negative. Wrist x-ray negative. Forearm x-ray bony osteopenia no dislocation. Soft tissue swelling. Head CT negative. As per case coordinator patient would like to go home. Patient was also evaluated by the construction contractor and per their recommendation syncope/fall might be related to drug therapy including tramadol, Ambien and anxiolytic therapy. They recommending to withdrawal tramadol that was started about 1 to 1 and half week ago. We will continue to monitor patient in the meantime. A.m. labs. Anticipated discharge within 24 hours. REVIEW OF SYSTEMS CONSTITUTIONAL: Denies fevers, chills, or night sweats. No unintentional weight loss reported. NEUROLOGICAL: Denies headache, amaurosis fugax, motor weakness, sensory deficit, vertigo/spinning sensation, gait abnormalities, or tremors. Complains of a headache ENT: No hearing loss, otalgia, otorrhea, rhinitis, rhinorrhea, hoarseness, or sore throat. CARDIOVASCULAR: Denies any exertional angina, dyspnea on exertion, orthopnea, paroxysmal nocturnal dyspnea, palpitations, life-threatening arrhythmias, claudication. PULMONARY: Denies any shortness of breath, cough, phlegm/sputum, hemoptysis, pleuritic chest pain. SLEEP: Denies morning headaches, daytime somnolence or napping. Denies difficulty falling asleep, staying asleep, waking from sleep. Denies knowledge of snoring. GASTROINTESTINAL: Denies any type of dysphagia to either liquids or solids. Denies nausea, vomiting, pyrosis, early satiety, abdominal pain, diarrhea, constipation, or changes in stool consistency or caliber. Denies coffee-ground emesis, hematemesis, hematochezia, or melanotic stools. GENITOURINARY: Denies frequency, urgency, nocturia, hematuria or incontinence (Storage/Irritative symptoms.) Low urinary stream, straining to void, urinary intermittency or hesitancy, splitting of the voiding stream, terminal dribbling. ENDOCRINOLOGIC: Denies polyuria, polydipsia, polyphagia or heat/cold intolerances. HEMATOLOGIC: Denies thrombophilia/previous clots, or coagulopathy/bleeding disorders. ONCOLOGIC: Denies personal history of malignancy. DERMATOLOGIC: Denies rashes or pruritus. PSYCHIATRIC: Denies any suicidal or homicidal ideation. Denies hallucinations. PHYSICAL EXAM GENERAL APPEARANCE: The patient is awake, alert, and oriented, in no acute cardiopulmonary distress. NEUROLOGICAL: Cranial nerves II-XII grossly intact. Motor is 5/5 in bilateral upper and lower extremities proximal to distal. No sensory deficits. HEENT: Face is symmetric. Pupils are equal and reactive. Extraocular movements are intact. NECK: Supple. No JVD. No thyromegaly. No submental, submandibular, pre-/postauricular, occipital or supraclavicular lymphadenopathy. CHEST: Normal chest expansion. No Telemetry. LUNGS: Absence of any rales, rhonchi or any wheezing. CARDIOVASCULAR: Regular. S1 and S2 normal. No appreciable rubs, murmurs or gallops. ABDOMEN: Soft, nontender, and nondistended. There is no rebound, voluntary guarding, or rigidity. : Deferred. No Sebastian. EXTREMITIES: Non-edematous and not cyanotic. No clubbing. Good capillary refill. SKIN: No skin breakdown. Vital Signs (last 8hr) Date Time Temp Pulse Resp B/P (MAP) Pulse Ox O2 Delivery O2 Flow Rate FiO2 08/25/24 11:23 97.9 87 18 103/54 98 Room Air 08/25/24 10:36 74 18 N/A Room Air 21 08/25/24 07:51 97.7 88 18 115/70 98 Room Air 08/25/24 03:49 97.5 87 20 119/65 100 Room Air LABS: Laboratory: Test 08/25/24 10:48 08/25/24 06:32 08/24/24 04:27 08/23/24 15:49 Range/Units Whole Blood Glucose 86 70-110 MG/DL White Blood Count 6.2 4.8-10.8 K/uL Red Blood Count 3.90 L 4.00-5.50 MIL/uL Hemoglobin 11.7 L 12.0-16.0 g/dL Hematocrit 35.4 L 36-48 % Mean Corpuscular Volume 90.8 79-99 fL Mean Corpuscular Hemoglobin 30.0 27.0-33.0 pg Mean Corpuscular Hemoglobin Concent 33.1 32.0-36.0 g/dL Red Cell Distribution Width 15.4 11.0-15.5 % Platelet Count 129 L 130-400 K/uL Mean Platelet Volume 12.0 H 7.5-10.5 fL Immature Granulocyte % (Auto) 0.3 0-1 % Neutrophils (%) (Auto) 50.0 40.0-77.0 % Lymphocytes (%) (Auto) 30.7 21.0-51.0 % Monocytes (%) (Auto) 12.4 3.0-13.0 % Eosinophils (%) (Auto) 6.1 0.0-8.0 % Basophils (%) (Auto) 0.5 0.0-5.0 % Neutrophils # (Auto) 3.1 1.8-7.7 K/uL Lymphocytes # (Auto) 1.9 1.0-4.8 K/uL Monocytes # (Auto) 0.8 0.1-1.0 K/uL Eosinophils # (Auto) 0.38 0.00-0.70 K/uL Basophils # (Auto) 0.03 0.00-0.20 K/uL Absolute Immature Granulocyte (auto 0.02 0-1 K/uL Nucleated Red Blood Cells 0.0 0.0-0.19 % Sodium Level 141 136-145 mmol/L Potassium Level 3.2 L 3.5-5.1 mmol/L Chloride Level 103 101-111 mmol/L Carbon Dioxide Level 29 21-32 mmol/L Blood Urea Nitrogen 15 7-18 mg/dL Creatinine 0.9 0.5-1.0 mg/dL Glomerular Filtration Rate Calc 63 >90 mL/min Random Glucose 85 70-105 mg/dL Total Calcium 8.3 L 8.5-10.1 mg/dL Magnesium Level 1.90 1.80-2.40 mg/dL Total Bilirubin 1.8 H 0.2-1.0 mg/dL Aspartate Amino Transf (AST/SGOT) 50 H 10-37 U/L Alanine Aminotransferase (ALT/SGPT) 29 12-78 U/L Alkaline Phosphatase 122 50-136 U/L Total Protein 7.4 6.0-8.3 g/dL Albumin 3.1 L 3.5-5.0 g/dL Lactic Acid Level 0.9 0.8-2.5 mmol/L Direct Bilirubin 1.0 H 0.0-0.3 mg/dL Ammonia 25 11-32 umol/L Total Creatine Kinase 272 #H 21-232 U/L Troponin I High Sensitivity 61.3 *H 4-50 ng/L B-Type Natriuretic Peptide 1530 H 0-100 pg/mL Procalcitonin < 0.05 L 0.05-0.5 ng/mL Bedside Glucose Comment Notified Nurse Test 08/23/24 11:33 Range/Units Influenza Type A Antigen Negative For Type A NEGATIVE Influenza Type B Antigen Negative For Type B NEGATIVE Current Medications Medications (Trade) Dose Ordered Sig/Adal Route PRN Reason Start Time Stop Time Status Last Admin Dose Admin Acetaminophen (TYLenol 325MG TAB) 650 mg Q4H PRN PO MILD PAIN (1-3) 08/23/24 09:30 08/23/24 09:10 DC Acetaminophen (TYLenol 325MG TAB) 650 mg Q6H PRN PO MILD PAIN (1-3) 08/23/24 09:30 09/22/24 09:29 08/24/24 21:19 650 MG Acetaminophen (TYLenol 325MG TAB) 650 mg Q6H PRN PO TEMPERATURE GREATER THAN 101.5 08/23/24 09:30 09/22/24 09:29 Al Hydroxide/Mg Hydroxide (MAALox PLUS 30ML) 30 ml Q6H PRN PO INDIGESTION 08/23/24 09:30 09/22/24 09:29 Albuterol Sulfate (Proventil 0.083% 2.5mg/3ml) 2.5 mg Q6H PRN IH SHORTNESS OF BREATH/WHEEZING 08/24/24 09:00 09/23/24 08:29 Albuterol Sulfate (Ventolin Hfa) I INHALTION Q6H PRN IH SHORTNESS OF BREATH/WHEEZING 08/23/24 15:30 08/24/24 08:20 DC Apixaban (EliquIS 2.5 mg) 2.5 mg BID PO 08/24/24 21:00 09/23/24 20:59 08/25/24 08:11 2.5 MG Atorvastatin Calcium (LIPItor 40MG) 40 mg HS PO 08/23/24 21:00 09/22/24 20:59 08/24/24 20:36 40 MG Benzonatate (Tessalon 100mg Caps) 100 mg TID PO 08/23/24 21:00 09/22/24 20:59 08/25/24 08:09 100 MG Clonazepam (KLONopin 1MG TAB) 0.5 mg HS PRN PO ANXIETY/AGITATION 08/23/24 19:00 09/22/24 18:59 08/24/24 14:55 0.5 MG Dextrose (D50w) 50 ml AD PRN IV HYPOGLYCEMIA PROTOCOL 08/23/24 09:30 09/22/24 09:29 Diltiazem HCl (CARDIzem 120MG CD) 120 mg DAILY PO 08/24/24 09:00 09/23/24 08:59 08/25/24 08:10 120 MG Diphenhydramine HCl (BENAdryl INJ) 25 mg Q6H PRN IV SEVERE ITCHING/RASH 08/23/24 09:30 09/22/24 09:29 Famotidine (Pepcid 20mg Vial) 20 mg BID PRN IV NAUSEA/VOMITING 08/23/24 09:30 08/23/24 09:10 DC Famotidine (Pepcid 20mg Vial) 20 mg Q24H IV 08/23/24 21:00 09/22/24 20:59 08/24/24 20:36 20 MG Furosemide (LASix 40MG TAB) 40 mg BID PO 08/23/24 21:00 09/22/24 20:59 08/25/24 08:11 40 MG Glucagon (Glucagon 1mg Kit) 1 mg AD PRN IM HYPOGLYCEMIA PROTOCOL 08/23/24 09:30 09/22/24 09:29 Guaifenesin/ Dextromethorphan (RobiTUSSin DM 200/20MG 10ML) 10 ml Q4H PRN PO COUGH 08/23/24 09:30 09/22/24 09:29 Heparin Sodium (Porcine) (HEParin 5,000 UNIT VIAL) 5,000 unit BID SQ 08/23/24 21:00 08/24/24 12:45 DC 08/24/24 09:03 5,000 UNIT Hydralazine HCl (APRESOLine 20MG INJ) 10 mg Q6H PRN IV For:SBP above 160;DBP above 90 08/23/24 09:30 09/22/24 09:29 08/23/24 15:50 10 MG Insulin Human Regular (humuLIN R 100 UNIT/ML 3ML) INSULIN SLIDING SCAL... ACHS SQ 08/23/24 11:30 09/22/24 11:29 Ketorolac Tromethamine (toRADol) 15 mg Q8H PRN IV MODERATE PAIN (4-6) 08/23/24 09:30 08/23/24 09:16 DC Lactulose (Constulose 20gm/ 30ml Udcup) 20 gm BID PRN PO CONSTIPATION 08/23/24 09:30 09/22/24 09:29 Lisinopril (Prinivil 5mg) 5 mg DAILY PO 08/24/24 09:00 09/23/24 08:59 08/25/24 08:10 5 MG Magnesium Sulfate 50 ml @ 0 mls/hr PROTOCOL IV 08/24/24 06:00 09/23/24 05:59 Magnesium Sulfate 50 ml @ 0 mls/hr PROTOCOL PRN IV other 08/23/24 09:30 08/24/24 06:02 DC 08/24/24 05:38 25 MLS/HR Meclizine HCl (ANTIvert 25 mg) 25 mg DAILY PO 08/24/24 09:00 09/23/24 08:59 08/25/24 08:11 25 MG Miscellaneous Medication (Clonazepam ) 0.5 mg AD PO 08/23/24 15:30 08/23/24 19:00 DC Morphine Sulfate (morPHINE 2MG SYG) 1 mg Q4H PRN IVP SEVERE PAIN (7-10) IF NPO 08/23/24 09:30 08/30/24 09:29 08/23/24 11:15 1 MG Nitroglycerin (Nitrostat) 0.4 mg PROTOCOL PRN SL CHEST PAIN 08/23/24 09:30 09/22/24 09:29 Ondansetron HCl (zoFRAN 4MG INJ) 4 mg Q6H PRN IV NAUSEA/VOMITING 08/23/24 09:30 09/22/24 09:29 08/23/24 16:27 4 MG Oxycodone/ Acetaminophen (perCOCET) 1 tab Q6H PRN PO SEVERE PAIN (7-10) 08/23/24 09:30 08/30/24 09:29 Pharmacy Profile Note (Pharmacy Communication) PLEASE CLARIFY CLONAZEPAM Q30MIN MISC 08/23/24 16:00 08/23/24 19:00 DC Potassium Chloride 100 ml @ 100 mls/hr AD PRN IV POTASSIUM PROTOCOL 08/23/24 09:30 09/22/24 09:29 Potassium Chloride (K-Dur/Klor-Con 20meq) 10 meq AD PRN PO POTASSIUM PROTOCOL 08/23/24 09:30 09/22/24 09:29 Potassium Chloride (K-Dur/Klor-Con 20meq) 40 meq DAILY PO 08/24/24 09:00 09/23/24 08:59 Potassium Chloride (KCl 10% Elixir 20meq/15ml) 10 meq AD PRN PO POTASSIUM PROTOCOL 08/23/24 09:30 09/22/24 09:29 08/25/24 08:12 10 MEQ Sertraline HCl (ZOloft 50 mg tab) 100 mg DAILY PO 08/24/24 09:00 09/23/24 08:59 08/25/24 08:09 100 MG Sodium Chloride 1,000 ml @ 70 mls/hr [id number] IV 08/23/24 09:30 08/24/24 09:34 DC 08/23/24 23:53 70 MLS/HR Tramadol HCl (UltRAM) 50 mg Q4HPRN PRN PO P 08/23/24 15:30 08/28/24 15:29 Zolpidem Tartrate (AmbIEN) 5 mg HS PRN PO INSOMNIA 08/23/24 09:30 09/22/24 09:29 Zolpidem Tartrate (AmbIEN) 10 mg HSPRN PRN PO INSOMNIA/SLEEP 08/23/24 15:30 09/22/24 15:29 08/24/24 20:37 10 MG DIAGNOSTICS / RADIOLOGY: [ ] ASSESSMENT: [ Acute hypoxic respiratory failure POA NSTEMI S/p fall POA AFib controlled on Eliquis POA Multifactorial anemia POA hypercoagulable state secondary to afib on ELiQUIS Acute on chronic diastolic CHF EF 30 to 35% 2D echo 11/17/[address]23 POA Interstitial fibrosis per CT abdomen/pelvis Bilateral pleural effusion per CT abdomen/pelvis Cirrhotic liver per CT abdomen/pelvis Mild diverticulosis per CT abdomen/pelvis Electrolyte imbalance hypokalemia K3.4 Debility Medical noncompliance Uncontrolled hypertension Hyperlipidemia History of Myocardial infarction Coronary Artery Disease s/p pacemaker/AICD Insomnia Anxiety Vertigo History of Cholecystectomy History of appendectomy] PLAN: Admit: Medical-surgical floor condition: Guarded Status: Full code IVF: [employer] construction contractor CE peak: 61.3 Oxygen supplemental to keep O2 sats above 92%. Test: None at this moment fluid restriction 1.5 liters strict I/O and daily weight. resume Eliquis Continue with Cardizem 120 mg p.o. daily for heart rate control Continue with diuretics Imaging on admission noted Patient was evaluated by construction contractor and they believe patient has a syncope/fall due to drug therapy including tramadol, Ambien, anxiolytic therapy. They recommend to wean off patient of tramadol no started recently. 2D echo 30 to 35% stage III diastolic dysfunction Ultrasound carotid negative Pacemaker interrogation 08/25/2024 Orthostatic vital signs negative Chest x-ray showed pneumonitis Pelvis x-ray showed large fecal material in colon, fibroid uterus Knee x-ray negative Cervical spine CT negative Wrist x-ray negative Forearm x-ray bony osteopenia, no dislocation. Soft tissue swelling Head CT tissue swelling Labs cbc, cmp, mag+ Replace electrolytes as needed as per protocol to keep potassium above 4.0 magnesium 2.0. Fall precautions :PT services to eval and treat Decubitus precautions aggressive offloading reposition self. Supportive measures: DVT ppx, GI ppx all questions answered Supervising MD: Dr. Mcnally c/d This document was generated in part using voice recognition software, occasional wrong word or sound alike substitutions may have occurred due to the inherent limitations of voice recognition software. Read the chart carefully and recognize using context, where the substitutions have occurred. Although every effort was made to edit the content, pit worker power shovel and typing errors may occur ATTESTATION BY PHYSICIAN I have seen and examined the patient. I reviewed the documentation, medical decision making, and treatment plan as noted by the mid-level provider above. I agree with the findings and plan of care. HERSON MCNALLY MD, KATARZYNA B APRN Aug 25, 2024 11:37
[2024-08-25] MEDS: LACTULOSE 20 GM/30 ML UDCUP PO PRN (12:11)
[2024-08-26 00:04] VITALS: BP 125/66; PULSE 85; RESP 18; TEMP 97.8
[2024-08-26 03:55] VITALS: BP 149/63; PULSE 85; RESP 18; TEMP 97.6
[2024-08-26 04:48] LABS: BASOPHILS # (AUTO) 0.02 K/uL (0.00-0.20); BASOPHILS % (AUTO) 0.3 % (0.0-5.0); EOSINOPHILS # (AUTO) 0.29 K/uL (0.00-0.70); HEMATOCRIT 35.2 % (36-48); IMMATURE GRANULOCYTE ABSOLUTE 0.03 K/uL (0-1); LYMPHOCYTES % (AUTO) 27.3 % (21.0-51.0); MEAN CORPUSCULAR HEMOGLOBIN 30.2 pg (27.0-33.0); MEAN CORPUSCULAR HGB CONC 33.2 g/dL (32.0-36.0); MEAN CORPUSCULAR VOLUME 90.7 fL (79-99); MONOCYTES # (AUTO) 0.7 K/uL (0.1-1.0); MONOCYTES % (AUTO) 10.2 % (3.0-13.0); NEUTROPHILS # (AUTO) 4.2 K/uL (1.8-7.7); NEUTROPHILS % (AUTO) 57.8 % (40.0-77.0); PLATELET COUNT (AUTO) 131 K/uL (130-400); RED BLOOD CELL COUNT(AUTO) 3.88 MIL/uL (4.00-5.50); RED CELL DISTRIBUTION WIDTH 15.3 % (11.0-15.5); WHITE BLOOD COUNT (AUTO) 7.3 K/uL (4.8-10.8)
[2024-08-26 05:07] LABS: ALBUMIN 3.1 g/dL (3.5-5.0); BILIRUBIN,TOTAL 1.6 mg/dL (0.2-1.0); CREATININE 0.8 mg/dL (0.5-1.0); MAGNESIUM 1.7 mg/dL (1.80-2.40); POTASSIUM 3.5 mmol/L (3.5-5.1); TOTAL PROTEIN, SERUM 7.4 g/dL (6.0-8.3)
[2024-08-26] MEDS: MAGNESIUM 2GM PREMIX 50ML 50 ML IV SCH (05:29)
[2024-08-26 06:14] VITALS: PULSE 80; RESP 18; O2SAT 96
[2024-08-26] MEDS ORDERED: clonazePAM 0.5 MG TABLET PO PRN (07:30)
[2024-08-26] MEDS ORDERED: PoTASSium chloRIDE 10MEQ SR 10 MEQ/TAB TAB.SR.24H PO PRN (07:30)
[2024-08-26 08:07] VITALS: BP 122/62; PULSE 84; RESP 18; TEMP 97.9
--- NOTE | 2024-08-26 08:22 | PN ---
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 Dysuria Repeat 2D echocardiogram on this admission reveal an ejection fraction at 45% with moderate mitral regurgitation and moderate-severe tricuspid regurgitation with evidence of severe pulmonary hypertension INTERIM HISTORY OF PRESENT ILLNESS: Patient currently did have some issues related to a fall at home and it should be noted that she does have some significant sleep aids and pain medications which re-initiation of tramadol as an outpatient which might have contributed to fall. She currently denies any chest pain pressure tightness. Pacemaker interrogation does reveal atrial flutter and moods which was occurring approximately 50% of the time which could be contributing to possible volume overload and fluid retention. Patient's ejection fraction does appear improved. It should be noted however the patient does have significant valvulopathy present which at this time is likely participating also to volume retention and shortness of breath REVIEW OF SYSTEMS: No fever, headache, chest pain, abdominal pain, nausea, vomiting, or diarrhea. VITAL SIGNS Vital Signs Date Time Temp Pulse Resp B/P (MAP) Pulse Ox O2 Delivery O2 Flow Rate FiO2 08/26/24 08:07 97.9 84 18 122/62 98 Room Air 08/26/24 06:14 21 08/25/24 20:58 0 Laboratory Tests 08/26/24 04:20 LABS/MEDS Laboratory Tests Test 08/25/24 10:48 08/25/24 15:25 08/25/24 19:04 08/26/24 04:20 Whole Blood Glucose 86 MG/DL (70-110) 119 MG/DL (70-110) H 113 MG/DL (70-110) H White Blood Count 7.3 K/uL (4.8-10.8) Red Blood Count 3.88 MIL/uL (4.00-5.50) L Hemoglobin 11.7 g/dL (12.0-16.0) L Hematocrit 35.2 % (36-48) L Mean Corpuscular Volume 90.7 fL (79-99) Mean Corpuscular Hemoglobin 30.2 pg (27.0-33.0) Mean Corpuscular Hemoglobin Concent 33.2 g/dL (32.0-36.0) Red Cell Distribution Width 15.3 % (11.0-15.5) Platelet Count 131 K/uL (130-400) Mean Platelet Volume 12.1 fL (7.5-10.5) H Immature Granulocyte % (Auto) 0.4 % (0-1) Neutrophils (%) (Auto) 57.8 % (40.0-77.0) Lymphocytes (%) (Auto) 27.3 % (21.0-51.0) Monocytes (%) (Auto) 10.2 % (3.0-13.0) Eosinophils (%) (Auto) 4.0 % (0.0-8.0) Basophils (%) (Auto) 0.3 % (0.0-5.0) Neutrophils # (Auto) 4.2 K/uL (1.8-7.7) Lymphocytes # (Auto) 2.0 K/uL (1.0-4.8) Monocytes # (Auto) 0.7 K/uL (0.1-1.0) Eosinophils # (Auto) 0.29 K/uL (0.00-0.70) Basophils # (Auto) 0.02 K/uL (0.00-0.20) Absolute Immature Granulocyte (auto 0.03 K/uL (0-1) Nucleated Red Blood Cells 0.0 % (0.0-0.19) Sodium Level 134 mmol/L (136-145) L Potassium Level 3.5 mmol/L (3.5-5.1) Chloride Level 100 mmol/L (101-111) L Carbon Dioxide Level 27 mmol/L (21-32) Blood Urea Nitrogen 14 mg/dL (7-18) Creatinine 0.8 mg/dL (0.5-1.0) Glomerular Filtration Rate Calc 72 mL/min (>90) Random Glucose 92 mg/dL (70-105) Total Calcium 8.3 mg/dL (8.5-10.1) L Magnesium Level 1.70 mg/dL (1.80-2.40) L Total Bilirubin 1.6 mg/dL (0.2-1.0) H Aspartate Amino Transf (AST/SGOT) 50 U/L (10-37) H Alanine Aminotransferase (ALT/SGPT) 28 U/L (12-78) Alkaline Phosphatase 136 U/L (50-136) Total Protein 7.4 g/dL (6.0-8.3) Albumin 3.1 g/dL (3.5-5.0) L Test 08/26/24 05:19 Whole Blood Glucose 93 MG/DL (70-110) Current Medications Morphine Sulfate 2 mg ONCE ONCE IVP Last administered on 08/23/24at 06:03; Start 08/23/24 at 06:00; Stop 08/23/24 at 06:01; Status DC Insulin Human Regular INSULIN SLIDING SCAL... ACHS SQ; Start 08/23/24 at 11:30; Stop 09/22/24 at 11:29 Dextrose 50 ml AD PRN IV; Start 08/23/24 at 09:30; Stop 09/22/24 at 09:29 Glucagon 1 mg AD PRN IM; Start 08/23/24 at 09:30; Stop 09/22/24 at 09:29 Potassium Chloride 100 ml @ 100 mls/hr AD PRN IV; Start 08/23/24 at 09:30; Stop 09/22/24 at 09:29 Potassium Chloride 10 meq AD PRN PO Last administered on 08/26/24at 05:29; Start 08/23/24 at 09:30; Stop 09/22/24 at 09:29 Potassium Chloride 10 meq AD PRN PO; Start 08/23/24 at 09:30; Stop 08/26/24 at 07:24; Status DC Magnesium Sulfate 50 ml @ 0 mls/hr PROTOCOL PRN IV Last administered on 08/24/24at 05:38; Start 08/23/24 at 09:30; Stop 08/24/24 at 06:02; Status DC Diphenhydramine HCl 25 mg Q6H PRN IV; Start 08/23/24 at 09:30; Stop 09/22/24 at 09:29 Acetaminophen 650 mg Q6H PRN PO; Start 08/23/24 at 09:30; Stop 09/22/24 at 09:29 Acetaminophen 650 mg Q4H PRN PO; Start 08/23/24 at 09:30; Stop 08/23/24 at 09:10; Status DC Ondansetron HCl 4 mg Q6H PRN IV Last administered on 08/23/24at 16:27; Start 08/23/24 at 09:30; Stop 09/22/24 at 09:29 Zolpidem Tartrate 5 mg HS PRN PO; Start 08/23/24 at 09:30; Stop 08/26/24 at 07:23; Status DC Al Hydroxide/Mg Hydroxide 30 ml Q6H PRN PO; Start 08/23/24 at 09:30; Stop 09/22/24 at 09:29 Lactulose 20 gm BID PRN PO Last administered on 08/25/24at 12:11; Start 08/23/24 at 09:30; Stop 09/22/24 at 09:29 Nitroglycerin 0.4 mg PROTOCOL PRN SL; Start 08/23/24 at 09:30; Stop 09/22/24 at 09:29 Guaifenesin/ Dextromethorphan 10 ml Q4H PRN PO; Start 08/23/24 at 09:30; Stop 09/22/24 at 09:29 Famotidine 20 mg BID PRN IV; Start 08/23/24 at 09:30; Stop 08/23/24 at 09:10; Status DC Heparin Sodium (Porcine) 5,000 unit BID SQ Last administered on 08/24/24at 09:03; Start 08/23/24 at 21:00; Stop 08/24/24 at 12:45; Status DC Acetaminophen 650 mg Q6H PRN PO Last administered on 08/24/24at 21:19; Start 08/23/24 at 09:30; Stop 09/22/24 at 09:29 Ketorolac Tromethamine 15 mg Q8H PRN IV; Start 08/23/24 at 09:30; Stop 08/23/24 at 09:16; Status DC Oxycodone/ Acetaminophen 1 tab Q6H PRN PO; Start 08/23/24 at 09:30; Stop 08/26/24 at 07:22; Status DC Morphine Sulfate 1 mg Q4H PRN IVP Last administered on 08/23/24at 11:15; Start 08/23/24 at 09:30; Stop 08/30/24 at 09:29 Sodium Chloride 1,000 ml @ 70 mls/hr [id number] IV Last administered on 08/23/24at 23:53; Start 08/23/24 at 09:30; Stop 08/24/24 at 09:34; Status DC Hydralazine HCl 10 mg Q6H PRN IV Last administered on 08/23/24at 15:50; Start 08/23/24 at 09:30; Stop 09/22/24 at 09:29 Famotidine 20 mg Q24H IV Last administered on 08/25/24at 20:40; Start 08/23/24 at 21:00; Stop 09/22/24 at 20:59 Potassium Chloride 40 meq DAILY PO; Start 08/24/24 at 09:00; Stop 09/23/24 at 08:59 Atorvastatin Calcium 40 mg HS PO Last administered on 08/25/24at 20:40; Start 08/23/24 at 21:00; Stop 09/22/24 at 20:59 Benzonatate 100 mg TID PO Last administered on 08/25/24at 20:42; Start 08/23/24 at 21:00; Stop 09/22/24 at 20:59 Diltiazem HCl 120 mg DAILY PO Last administered on 08/25/24at 08:10; Start 08/24/24 at 09:00; Stop 09/23/24 at 08:59 Furosemide 40 mg BID PO Last administered on 08/25/24at 20:40; Start 08/23/24 at 21:00; Stop 09/22/24 at 20:59 Lisinopril 5 mg DAILY PO Last administered on 08/25/24at 08:10; Start 08/24/24 at 09:00; Stop 09/23/24 at 08:59 Meclizine HCl 25 mg DAILY PO Last administered on 08/25/24at 08:11; Start 08/24/24 at 09:00; Stop 09/23/24 at 08:59 Tramadol HCl 50 mg Q4HPRN PRN PO; Start 08/23/24 at 15:30; Stop 08/26/24 at 07:22; Status DC Albuterol Sulfate I INHALTION Q6H PRN IH; Start 08/23/24 at 15:30; Stop 08/24/24 at 08:20; Status DC Miscellaneous Medication 0.5 mg AD PO; Start 08/23/24 at 15:30; Stop 08/23/24 at 19:00; Status DC Sertraline HCl 100 mg DAILY PO Last administered on 08/25/24at 08:09; Start 08/24/24 at 09:00; Stop 09/23/24 at 08:59 Zolpidem Tartrate 10 mg HSPRN PRN PO Last administered on 08/25/24at 20:58; Start 08/23/24 at 15:30; Stop 09/22/24 at 15:29 Pharmacy Profile Note PLEASE CLARIFY CLONAZEPAM Q30MIN MISC; Start 08/23/24 at 16:00; Stop 08/23/24 at 19:00; Status DC Clonazepam 0.5 mg HS PRN PO Last administered on 08/24/24at 14:55; Start 08/23/24 at 19:00; Stop 08/26/24 at 07:21; Status DC Magnesium Sulfate 50 ml @ 0 mls/hr PROTOCOL IV Last administered on 08/26/24at 05:29; Start 08/24/24 at 06:00; Stop 09/23/24 at 05:59 Albuterol Sulfate 2.5 mg Q6H PRN IH; Start 08/24/24 at 09:00; Stop 09/23/24 at 08:29 Apixaban 2.5 mg BID PO Last administered on 08/25/24at 20:41; Start 08/24/24 at 21:00; Stop 09/23/24 at 20:59 Clonazepam 0.5 mg HS PRN PO; Start 08/26/24 at 07:30; Stop 09/22/24 at 18:59 Potassium Chloride 10 meq AD PRN PO; Start 08/26/24 at 07:30; Stop 09/22/24 at 09:29 PHYSICAL EXAMINATION: GENERAL: No acute distress. HEENT: Normocephalic, atraumatic. CARDIAC: Positive S1 and S2. loud murmur holosystolic left sternal border as well as apex LUNGS: Clear to auscultation bilaterally. ABDOMEN: Bowel sounds present, soft, nontender. EXTREMITIES: No edema bilaterally. NEUROLOGIC: Cranial nerves 2-12 grossly intact. PSYCHIATRIC: Calm. 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 Dysuria Moderate mitral regurgitation Moderate-severe tricuspid regurgitation line severe pulmonary hypertension Pacer interrogation revealing atrial flutter paroxysmal PLAN: Adjustments have been made to patient's medications at this time pacer interrogation has been performed and interpreted and we will continue to follow closely. Goal at this time will be rate control. In regards to patient's valvulopathy not think she is a candidate for any invasive procedures currently and she would like to continue with medical management at this time. TYRONE LEÓN MD Aug 26, 2024 08:22
[2024-08-26] MEDS ORDERED: MAGNESIUM 2GM PREMIX 50ML 50 ML IV SCH (09:30)
[2024-08-26] MEDS: PoTASSium chl 10% ELIXIR 20MEQ 20 MEQ/15 ML UDCUP PO SCH (10:54)
[2024-08-26] MEDS ORDERED: MAGNESIUM OXIDE 400 MG TABLET PO ONE (11:30)
--- NOTE | 2024-08-26 11:40 | DS ---
Discharge Summary Hospital Course Summary: DATE OF ADMISSION:[08/23/2024] DATE OF DISCHARGE:[08/26/2024] DISPOSITION:[Home] CONDITION:[Medically cleared] CONSULTANTS:[[employer]] FOLLOW UP APPOINTMENTS:[PCP 2 to 3 days. [employer] in two weeks] PROCEDURES:[None] IMAGING: report attached to summary MICROBIOLOGY: report attached to summary ACTIVITY:[Independent] HOME MEDICATIONS: see [facility] NEW MEDICATIONS:[No new medications] EMERGENCY INSTRUCTIONS: The patient was instructed to present to the nearest Emergency departmentr or call 911 once their symptoms will return or worsen Load Mixer(s): his is a 84 year old female presented in ED with chief complaints of fall and shortness of breaths. Trauma work up done: all imaging negative for fractures or dislocations. noted osteopenia. Reviewed labs elevated BNP stop IV fluids patient is currently on Lasix IV. Echo pending. The patient denies chest pain, dizziness or palpations. [employer] Analyst was consulted 2D echo was performed and showed 30 to 35% stage III diastolic dysfunction. Ultrasound carotid negative. Patient's pacemaker has been interrogate. Orthostatic vital signs negative. Chest x-ray showed pneumonitis. Knee x-ray negative. Cervical spine CT negative. Wrist x-ray negative. Forearm x-ray bony osteopenia no dislocation. Soft tissue swelling. Head CT negative. Patient was also evaluated by the dictating machine transcriber and per their recommendation syncope/fall might be related to drug therapy including tramadol, Ambien and anxiolytic therapy. Nurse practitioner reach out to Dr. Parker from [facility] and patient was cleared to be discharged home today follow up outpatient within two weeks. Patient was also advised to follow up with PCP in 2 to 3 days. Procedure(s): REVIEW OF SYSTEMS CONSTITUTIONAL: Denies fevers, chills, or night sweats. No unintentional weight loss reported. NEUROLOGICAL: Denies headache, amaurosis fugax, motor weakness, sensory deficit, vertigo/spinning sensation, gait abnormalities, or tremors. Complains of a headache ENT: No hearing loss, otalgia, otorrhea, rhinitis, rhinorrhea, hoarseness, or sore throat. CARDIOVASCULAR: Denies any exertional angina, dyspnea on exertion, orthopnea, paroxysmal nocturnal dyspnea, palpitations, life-threatening arrhythmias, claudication. PULMONARY: Denies any shortness of breath, cough, phlegm/sputum, hemoptysis, pleuritic chest pain. SLEEP: Denies morning headaches, daytime somnolence or napping. Denies difficulty falling asleep, staying asleep, waking from sleep. Denies knowledge of snoring. GASTROINTESTINAL: Denies any type of dysphagia to either liquids or solids. Denies nausea, vomiting, pyrosis, early satiety, abdominal pain, diarrhea, constipation, or changes in stool consistency or caliber. Denies coffee-ground emesis, hematemesis, hematochezia, or melanotic stools. GENITOURINARY: Denies frequency, urgency, nocturia, hematuria or incontinence (Storage/Irritative symptoms.) Low urinary stream, straining to void, urinary intermittency or hesitancy, splitting of the voiding stream, terminal dribbling. ENDOCRINOLOGIC: Denies polyuria, polydipsia, polyphagia or heat/cold intolerances. HEMATOLOGIC: Denies thrombophilia/previous clots, or coagulopathy/bleeding disorders. ONCOLOGIC: Denies personal history of malignancy. DERMATOLOGIC: Denies rashes or pruritus. PSYCHIATRIC: Denies any suicidal or homicidal ideation. Denies hallucinations. PHYSICAL EXAM GENERAL APPEARANCE: The patient is awake, alert, and oriented, in no acute cardiopulmonary distress. NEUROLOGICAL: Cranial nerves II-XII grossly intact. Motor is 5/5 in bilateral upper and lower extremities proximal to distal. No sensory deficits. HEENT: Face is symmetric. Pupils are equal and reactive. Extraocular movements are intact. NECK: Supple. No JVD. No thyromegaly. No submental, submandibular, pre-/p ostauricular, occipital or supraclavicular lymphadenopathy. CHEST: Normal chest expansion. No Telemetry. LUNGS: Absence of any rales, rhonchi or any wheezing. CARDIOVASCULAR: Regular. S1 and S2 normal. No appreciable rubs, murmurs or gallops. ABDOMEN: Soft, nontender, and nondistended. There is no rebound, voluntary guarding, or rigidity. : Deferred. No Sebastian. EXTREMITIES: Non-edematous and not cyanotic. No clubbing. Good capillary refill. SKIN: No skin breakdown. Assessment/Plan: ASSESSMENT: [ Acute hypoxic respiratory failure POA NSTEMI S/p fall POA AFib controlled on Eliquis POA Multifactorial anemia POA hypercoagulable state secondary to afib on ELiQUIS Acute on chronic diastolic CHF EF 30 to 35% 2D echo 11/17/[address] POA Interstitial fibrosis per CT abdomen/pelvis Bilateral pleural effusion per CT abdomen/pelvis Cirrhotic liver per CT abdomen/pelvis Mild diverticulosis per CT abdomen/pelvis Electrolyte imbalance hypokalemia K3.4 Debility Medical noncompliance Uncontrolled hypertension Hyperlipidemia History of Myocardial infarction Coronary Artery Disease s/p pacemaker/AICD Insomnia Anxiety Vertigo History of Cholecystectomy History of appendectomy] Home Medications: Active Scripts Albuterol Sulfate (Ventolin Hfa) 90 Mcg Hfa.aer.ad, 18 GM IH Q6HPRN PRN for SHORTNESS OF BREATH/WHEEZING, #1 INHALER 2 Refills Prov:SAIMA GROSS 01/15/24 Reported Medications Tramadol Hcl (Tramadol HCl) 50 Mg Tablet, 1 TAB PO Q4HPRN PRN for PAIN 08/23/24 Meclizine HCl (Meclizine HCl) 25 Mg Tablet, 1 TAB PO DAILY 08/23/24 Lisinopril (Lisinopril) 5 Mg Tablet, 1 TAB PO DAILY for 30 Days, #30 TAB 0 Refills 08/23/24 Clonazepam (Clonazepam) 0.5 Mg Tab.rapdis, 0.5 MG PO HS PRN for ANXIETY, TAB 08/23/24 Atorvastatin Calcium (LIPITOR) 40 Mg Tablet, 1 TAB PO HS for 30 Days, #30 TAB 0 Refills 08/23/24 Furosemide (Furosemide) 40 Mg Tablet, 1 TAB PO BID for 30 Days, #30 TAB 0 Refills 08/23/24 Apixaban (Eliquis) 2.5 Mg Tablet, 1 TAB PO BID for 30 Days, #60 TAB 0 Refills 08/23/24 Diltiazem HCl (Diltiazem 24Hr ER) 120 Mg Cap.er.24h, 1 CAP PO DAILY for 30 Days, #30 CAP 0 Refills 08/23/24 Zolpidem Tartrate (Ambien) 10 Mg Tablet, 10 MG PO HSPRN PRN for INSOMNIA/SLEEP, TAB 08/23/24 Benzonatate (Benzonatate) 100 Mg Capsule, 100 MG PO TID, CAP 01/13/24 Sertraline HCl (Sertraline HCl) 100 Mg Tablet, 100 MG PO DAILY, TAB 01/13/24 Discontinued Reported Medications Cefdinir (Cefdinir) 300 Mg Capsule, 1 CAP PO BID 08/23/24 Budesonide (Pulmicort Inhaler) 180 Mcg Puff, 90 MCG IH BID, INH 01/13/24 Loratadine (Loratadine) 10 Mg Tablet, 10 MG PO DAILY, TAB 01/13/24 Furosemide (Furosemide) 40 Mg Tablet, 40 MG PO DAILY, TAB 01/13/24 Diphenhydramine HCl (Banophen) 25 Mg Capsule, 25 MG PO Q6HPRN PRN for ITCHING, CAP 01/13/24 Diltiazem HCl (Cartia Xt) 120 Mg Cap.er.24h, 120 MG PO DAILY, CAPSULE.DR 01/13/24 Apixaban (Eliquis) 2.5 Mg Tablet, 2.5 MG PO BID, TAB 01/24/22 Lisinopril (Lisinopril) 5 Mg Tablet, 5 MG PO DAILY, TAB 01/24/22 Zolpidem Tartrate (Zolpidem Tartrate) 5 Mg Tablet, 5 MG PO HSPRN PRN for INSOMNIA, TAB 01/24/22 Atorvastatin Calcium (LIPITOR) 40 Mg Tablet, 40 MG PO HS, TAB 01/24/22 Discontinued Scripts Doxycycline Hyclate (Doxycycline Hyclate) 100 Mg Capsule, 100 MG PO BID for 7 Days, #14 CAP Prov:SAIMA GROSS 01/15/24 Furosemide (Furosemide) 40 Mg Tablet, 40 MG PO DAILY, #60 TAB Prov:BERNICE KOCH MD 10/08/23 Time spent arranging discharge: 31-60 minutes ATTESTATION BY PHYSICIAN I have seen and examined the patient. I reviewed the documentation, medical decision making, and treatment plan as noted by the mid-level provider above. I agree with the findings and plan of care. HERSON MCNALLY MD, [address]AT[address] [facility] BAILIFF OR SHERIFF Aug 26, 2024 11:40
[2024-08-26] MEDS: PoTASSium chl 10% ELIXIR 20MEQ 20 MEQ/15 ML UDCUP PO ONE (11:54)
[2024-08-26 12:08] VITALS: BP 130/70; PULSE 97; RESP 18; TEMP 98.3
--- NOTE | 2024-08-28 15:42 | NUR ---
Transitional Phone Call Patient speaks Syriac and hard of hearing on the telephone call. Spoke to patient states her head still hurts and she's all bruised up with big bump on her head; states she has a hard time sitting down because her buttocks hurts from the fall. States very uncomfortable. Educated patient, if pain is unbearable to sit and move around and prescribed medication do not make it better, she needs to check in with her PCP or go to an emergency room. States she missed her PCP - Dr. Huang appointment due to transportation; office states will call her back with an afternoon appointment. The cardiology follow up appointment with [facility] has not been scheduled and needs assistance making the appointment and may need transportation; referred to [facility]; notified Erika.
== END 2024-08-26 13:30 | disposition home or self-care (01) | DRG 280 ==
LOC: EDH 04:32 → EDHIP 06:00 → EDH 06:00 → EDHIP 09:03 → 3AH 13:03
PROVIDERS: ADMIT Internal Medicine; ATTEND Internal Medicine
DX: I11.0 Hypertensive heart disease with heart failure (principal); I50.41 Acute combined systolic (congestive) and diastolic (congestive) heart failure; I21.4 Non-ST elevation (NSTEMI) myocardial infarction; J96.01 Acute respiratory failure with hypoxia; D68.69 Other thrombophilia; I48.92 Unspecified atrial flutter; D64.9 Anemia, unspecified; E78.5 Hyperlipidemia, unspecified; E83.42 Hypomagnesemia; E87.6 Hypokalemia; F41.9 Anxiety disorder, unspecified; G47.00 Insomnia, unspecified; I25.10 Atherosclerotic heart disease of native coronary artery without angina pectoris; K57.30 Diverticulosis of large intestine without perforation or abscess without bleeding; K74.60 Unspecified cirrhosis of liver; E87.8 Other disorders of electrolyte and fluid balance, not elsewhere classified; D69.6 Thrombocytopenia, unspecified; M85.832 Other specified disorders of bone density and structure, left forearm; E86.0 Dehydration; I27.20 Pulmonary hypertension, unspecified; I48.0 Paroxysmal atrial fibrillation; J98.4 Other disorders of lung; F32.A Depression, unspecified; Z95.810 Presence of automatic (implantable) cardiac defibrillator; Z95.1 Presence of aortocoronary bypass graft; Z91.199 Patient's noncompliance with other medical treatment and regimen due to unspecified reason; Z90.49 Acquired absence of other specified parts of digestive tract; Z86.718 Personal history of other venous thrombosis and embolism; Z79.01 Long term (current) use of anticoagulants; I25.2 Old myocardial infarction; W01.0XXA Fall on same level from slipping, tripping and stumbling without subsequent striking against object, initial encounter; Y93.89 Activity, other specified; Y92.098 Other place in other non-institutional residence as the place of occurrence of the external cause; Y99.8 Other external cause status
CPT/HCPCS: 36415; 70450; 71045; 72125; 72170; 73090; 73100; 74176; 80048; 80053; 80076; 81001; 82140; 82550; 82948; 83036; 83605; 83735; 83880; 84145; 84484; 85025; 87804; 93005; 93306; 93356; 93880; 94664; 96374; 99285; G0378; J0360; J1644; J2270; J2405; J3475; J3490